=== PATIENT | male | born 1990 | race Caucasian/White ===

== ENCOUNTER 2019-04-24 09:29 | Emergency (ER) | payer MEDICAID, SELFPAY ==
[2019-04-24] VITALS (11 sets, daily range): BP systolic 132–138; BP diastolic 60–87; PULSE 100–108; RESP 14–21; O2SAT 93–98; BMI 25.8
--- NOTE | 2019-04-24 09:32 | ED_ITS ---
Entered by Patrica Aguero, acting as scribe for HPI - Nausea/Vomiting/Diarrhea General: Chief complaint: GI Bleed Stated complaint: COFFEE GROUND EMESIS Time Seen by Provider: 04/24/19 09:31 History of Present Illness: HPI Narrative: 28 yo male presents with coffee ground emesis. Pt has a history of a TBI, he is Non verbal. Pt has a Peg tube. 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 He is nonverbal. No evidence of hematochezia or melena. MD elicited complaint: vomiting Onset (ago): unknown Description of vomiting: coffee grounds Associated nausea: Yes Associated symtoms: Reports nausea Review of Systems General: Reports: ROS unobtainable due to mental status (Pt is non verbal from TBI) GI: Reports: nausea, vomiting and coffee grounds in vomit PFSH ED PFSH: Statuses (acute, chronic, etc) shown below reflect problem list status as previously entered and may not be historically accurate Medical History TBI (traumatic brain injury) (Acute) Surgical History S/P percutaneous endoscopic gastrostomy (PEG) tube placement (Acute) Social History Smoking and tobacco status: never smoked Physical Exam Narrative: EXAM NARRATIVE: Pt is Non verbal Neck/C-Spine: COMMON NORMALS: no JVD Lymph: LYMPHATIC: no lymphadenopathy noted and no lymphedema noted Resp: COMMON NORMALS: normal respiratory effort, no retractions, no use of accessory muscles and clear to auscultation bilaterally AUSCULTATION: clear to auscultation bilaterally Cardio: COMMON NORMALS: no JVD, regular rate, regular rhythm and no murmurs RATE: regular rate RHYTHM: regular rhythm GI: COMMON NORMALS: soft to palpation and no hepatosplenomegaly AUSCULTATION: Yes normoactive bowel sounds PALPATION: Yes soft, No tender, No guarding and Yes no hepatosplenomegaly OTHER: PEG tube rectal exam Hemoccult negative Extremity: COMMON NORMALS: normal to inspection, normal capillary refill, no clubbing, cyanosis or edema, no calf tenderness and no pedal edema Skin: COMMON NORMALS: no rashes or lesions noted GENERAL SKIN EXAM: no rashes or lesions noted Course Vital Signs: Vital signs: Vital Signs Pulse Rate 100 04/24/19 13:19 Respiratory Rate 20 H 04/24/19 13:19 Blood Pressure 132/87 04/24/19 13:19 Pulse Oximetry 95 04/24/19 13:19 MDM - Nausea/Vomiting/Diarrhea Lab Data: Labs: Lab Results 04/24/19 04/24/19 04/24/19 Range/Units 10:00 10:00 10:00 WBC 18.3 H (4.0-10.0) 10^3/ uL RBC 4.90 (4.1-5.3) 10^6/u L Hgb 15.9 (11.7-16.6) g/dL Hct 47.7 (42.0-52.0) % MCV 97.3 H (80-94) fL MCH 32.4 (28.0-34.0) pg MCHC 33.3 (30.0-36.0) g/dL RDW 12.1 (12.1-15.1) % Plt Count 471 H (130-400) 10^3/c mm MPV 11.5 H (7.4-10.4) fL Neut % (Auto) 76.9 % Lymph % (Auto) 11.9 % [place] % (Auto) 10.4 % Eos % (Auto) 0.1 % Baso % (Auto) 0.4 % Neut # (Auto) 14.1 H (1.8-7.7) 10^3/u L Lymph # (Auto) 2.2 (0.8-4.8) 10^3/u L [place] # (Auto) 1.9 H (0.2-0.9) 10^3/u L Eos # (Auto) 0.0 (0.0-0.8) 10^3/u L Baso # (Auto) 0.1 (0.0-0.1) 10^3/u L Nucleated RBC % (a uto) 0 % Nucleated RBCs # 0.0 /100WBC PT 13.00 (10.5-13.3) SECO NDS INR 0.95 (0.8-1.2) APTT 32.2 (23.9-36.7) SECO NDS Sodium 141 (136-145) mmol/L Potassium 4.1 (3.5-5.1) mmol/L Chloride 103 (98-107) mmol/L Carbon Dioxide 26 (22-29) mmol/L Anion Gap 16.1 (5-19) BUN 17 (6-20) mg/dL Creatinine 0.5 L (0.7-1.2) mg/dL GFR Calculation 198.0 H (90-130) mL/min Glucose 110 H (74-109) mg/dL Calcium 9.7 (8.5-10.5) mg/dL Total Bilirubin 0.5 (0.15-1.2) mg/dL AST 23 (0-40) U/L ALT 33 (0-41) U/L Alkaline Phosphata se 106 (40-130) IU/L Total Protein 8.1 (6.6-8.7) g/dL Albumin 4.7 (3.5-5.2) g/dL Globulin 3.4 (1.3-4.6) g/dL Urine Color (Yellow) Urine Appearance (CLEAR) Urine pH (5-7) Ur Specific Gravit y (1.005-1.030) Urine Protein (Negative) Urine Glucose (UA) (Normal) Urine Ketones (Negative) Urine Occult Blood (Negative) Urine Nitrate (Negative) Urine Bilirubin (NEGATIVE) Urine Urobilinogen (Negative) mg/dL Ur Leukocyte Roseanna ase (Negative) Urine RBC (0-2) /hpf Urine WBC (0-5) /hpf Ur Squamous Epith Cells (0-5) Amorphous Sediment Urine Bacteria (NONE) Hyaline Casts Urine Mucus Influenza Type A A g (Negative) POC Influenza B Ag (Negative) 04/24/19 04/24/19 Range/Units 11:40 11:50 WBC (4.0-10.0) 10^3/ uL RBC (4.1-5.3) 10^6/u L Hgb (11.7-16.6) g/dL Hct (42.0-52.0) % MCV (80-94) fL MCH (28.0-34.0) pg MCHC (30.0-36.0) g/dL RDW (12.1-15.1) % Plt Count (130-400) 10^3/c mm MPV (7.4-10.4) fL Neut % (Auto) % Lymph % (Auto) % [place] % (Auto) % Eos % (Auto) % Baso % (Auto) % Neut # (Auto) (1.8-7.7) 10^3/u L Lymph # (Auto) (0.8-4.8) 10^3/u L [place] # (Auto) (0.2-0.9) 10^3/u L Eos # (Auto) (0.0-0.8) 10^3/u L Baso # (Auto) (0.0-0.1) 10^3/u L Nucleated RBC % (a uto) % Nucleated RBCs # /100WBC PT (10.5-13.3) SECO NDS INR (0.8-1.2) APTT (23.9-36.7) SECO NDS Sodium (136-145) mmol/L Potassium (3.5-5.1) mmol/L Chloride (98-107) mmol/L Carbon Dioxide (22-29) mmol/L Anion Gap (5-19) BUN (6-20) mg/dL Creatinine (0.7-1.2) mg/dL GFR Calculation (90-130) mL/min Glucose (74-109) mg/dL Calcium (8.5-10.5) mg/dL Total Bilirubin (0.15-1.2) mg/dL AST (0-40) U/L ALT (0-41) U/L Alkaline Phosphata se (40-130) IU/L Total Protein (6.6-8.7) g/dL Albumin (3.5-5.2) g/dL Globulin (1.3-4.6) g/dL Urine Color Yellow (Yellow) Urine Appearance Sl hazy (CLEAR) Urine pH 8 H (5-7) Ur Specific Gravit y 1.010 (1.005-1.030) Urine Protein Neg (Negative) Urine Glucose (UA) Norm (Normal) Urine Ketones 1+ H (Negative) Urine Occult Blood Neg (Negative) Urine Nitrate Negative (Negative) Urine Bilirubin Neg (NEGATIVE) Urine Urobilinogen Norm (Negative) mg/dL Ur Leukocyte Roseanna ase Negative (Negative) Urine RBC 0-4 H (0-2) /hpf Urine WBC 10-15 H (0-5) /hpf Ur Squamous Epith Cells 5-10 H (0-5) Amorphous Sediment 1+ Urine Bacteria 1+ H (NONE) Hyaline Casts Rare Urine Mucus 1+ Influenza Type A A g Negative (Negative) POC Influenza B Ag Negative (Negative) Discharge Plan Discharge Patient Disposition: Home, Self-Care Clinical Impression: Acute vomiting Condition: Stable Prescriptions: New promethazine 12.5 mg tablet 12.5 mg PO Q6H PRN (Reason: nausea and vomiting) Qty: 20 RF: 0 No Action senna 8.6 mg Tablet 17.2 mg feeding tube DAILY RF: 0 acetaminophen 650 mg Suppository 650 mg ME Q4H PRN (Reason: Pain) RF: 0 Miralax 17 gram Powder In Packet 17 g feeding tube DAILY RF: 0 metoclopramide HCl 5 mg/5 mL Solution 10 mg feeding tube Q8H RF: 0 acetaminophen 500 mg Tablet 1,000 mg PO DAILY RF: 0 Milk of Magnesia 400 mg/5 mL Suspension 30 ml PO DAILY PRN (Reason: Constipation) RF: 0 baclofen 10 mg Tablet 20 mg PO TID RF: 0 bisacodyl 10 mg Suppository 10 mg ME DAILY PRN (Reason: Constipation) RF: 0 bisacodyl 10 mg Suppository See Rx Instructions .ROUTE .COMPLEX RF: 0 Enema Disposable 19-7 gram/118 mL Enema 118 ml ME DAILY PRN (Reason: Constipation) RF: 0 aspirin 81 mg Tablet,Chewable 81 mg PO DAILY RF: 0 loratadine 10 mg Tablet 10 mg feeding tube DAILY RF: 0 Nexium 20 mg Capsule,Delayed Release(Dr/Ec) 40 mg feeding tube DAILY RF: 0 hydrocodone-acetaminophen 7.5-325 mg/15 mL Solution 15 ml feeding tube Q6H PRN (Reason: Pain) RF: 0 lactulose 10 gram/15 mL Solution 30 ml feeding tube TID RF: 0 Jevity 1.5 Jerry 0.06 gram-1.5 kcal/mL Liquid 80 ea feeding tube DAILY RF: 0 Discharge Orders: Discharge Order (Routine); Ordered 04/24/19 Ordered By: Pancho Vega Referrals: Abram Tellez Jr, MD [Primary Care Provider] - Discharge Diet: Usual diet Discharge Activity: Resume usual activity Interventions: ED Discharge Assessment Last Done: 04/24/19 13:19 Discharge Date/Time: 04/24/19 14:13 Coding Level of Care Code 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
[2019-04-24 10:13] LABS: Basophils # 0.1 10^3/uL (0.0-0.1); Basophils % 0.4 %; Eosinophils % 0.1 %; Hematocrit 47.7 % (42.0-52.0); Hemoglobin 15.9 g/dL (11.7-16.6); Lymphocytes # 2.2 10^3/uL (0.8-4.8); Lymphocytes % 11.9 %; Mean Corpuscular HGB Conc 33.3 g/dL (30.0-36.0); Mean Corpuscular Hemoglobin 32.4 pg (28.0-34.0); Mean Corpuscular Volume 97.3 fL (80-94); Mean Platelet Volume 11.5 fL (7.4-10.4); Monocytes # 1.9 10^3/uL (0.2-0.9); Monocytes % 10.4 %; Neutrophils # 14.1 10^3/uL (1.8-7.7); Neutrophils % 76.9 %; Nucleated Red Blood Cells % 0 %; Platelet Count 471 10^3/cmm (130-400); Red Cell Distribution Width 12.1 % (12.1-15.1); White Blood Count 18.3 10^3/uL (4.0-10.0)
[2019-04-24 10:23] LABS: INR 0.95 (0.8-1.2)
[2019-04-24 10:24] LABS: Partial Thromboplastin Time 32.2 SECONDS (23.9-36.7)
[2019-04-24 10:29] LABS: Alanine Aminotransferase 33 U/L (0-41); Albumin Level 4.7 g/dL (3.5-5.2); Alkaline Phosphatase 106 IU/L (40-130); Anion Gap 16.1 (5-19); Aspartate Amino Transferase 23 U/L (0-40); Blood Urea Nitrogen 17 mg/dL (6-20); Calcium 9.7 mg/dL (8.5-10.5); Carbon Dioxide 26 mmol/L (22-29); Chloride 103 mmol/L (98-107); Globulin 3.4 g/dL (1.3-4.6); Glucose 110 mg/dL (74-109); Potassium 4.1 mmol/L (3.5-5.1); Sodium 141 mmol/L (136-145); Total Bilirubin 0.5 mg/dL (0.15-1.2); Total Protein 8.1 g/dL (6.6-8.7)
[2019-04-24 10:46] LABS: Slide Review Slide Review Perform
--- NOTE | 2019-04-24 11:04 | XRR_ITS ---
PROCEDURE INFORMATION: Exam: XR Chest, 1 View Exam date and time: 04/24/2019 11:08 AM Age: 28 years old Clinical indication: Cough; Patient HX: PT had coffee ground emesis at 0830. Limited HX due to PT condition, HX of tbi TECHNIQUE: Imaging protocol: XR of the chest Views: 1 view. COMPARISON: CR Chest 1 [place] [id number] 09/12/2017 3:12 AM FINDINGS: Lungs: Mild interstitial prominence, without acute airspace disease. Pleural space: No significant pleural effusion. Heart/Mediastinum: No cardiomegaly. Bones/joints: Unremarkable. Other findings: Colonic dilatation in the visualized upper abdomen. XR/XR chest 1V portable [id number] IMPRESSION: No acute airspace or pleural disease.
[2019-04-24 12:21] LABS: Influenza A by IFA Negative (Negative); Influenza B by IFA Negative (Negative)
[2019-04-24 12:30] LABS: Bilirubin Urine Neg (NEGATIVE); Blood Urine Neg (Negative); Glucose Urine UA Norm (Normal); Ketones Urine 1+ (Negative); Leukocyte Esterase Urine Negative (Negative); Nitrate Urine Negative (Negative); Protein Urine Neg (Negative); Urine Appearance SL Hazy (CLEAR); Urine Color Yellow (Yellow); Urobilinogen Urine Norm (Negative); pH Urine 8 (5-7)
[2019-04-24 12:31] LABS: Add Urine Microscopic? YES
[2019-04-24 12:33] LABS: Hyaline Casts Urine RARE; Mucus Urine 1+
[2019-04-24 12:34] LABS: Amorphous Sediment Urine 1+; Bacteria Urine 1+; RBC Urine 0-4 /hpf (0-2)
[2019-04-24 12:35] LABS: Add Urine Culture? No
--- NOTE | 2019-04-24 13:14 | PC.NURSE ---
quinton scruggs scheduled at this time. Ref number [id number].
--- NOTE | 2019-04-24 13:19 | PC.NURSE ---
Report called to [facility] at this time, spoke to Aaliyah greenhouse worker and KATHERYN beck.
== END 2019-04-24 14:13 | disposition home or self-care (01) ==
PROVIDERS: Emergency Provider Family Medicine; Family Provider Family Medicine; PCP Family Medicine
DX: R11.10 Vomiting, unspecified (principal); Z79.82 Long term (current) use of aspirin
CPT/HCPCS: 71045; 80053; 81001; 85025; 85610; 85730; 87804; 99283

== ENCOUNTER 2019-06-10 03:23 | Emergency (ER) | payer MEDICAID, SELFPAY | END 2019-06-10 11:13 | disposition admitted as inpatient to this hospital (09) | LOC: ER 06-25 12:46 | PROVIDERS: Emergency Provider Family Medicine; Family Provider Family Medicine; PCP Family Medicine | DX: Z01.89 Encounter for other specified special examinations (principal) ==

== ENCOUNTER 2019-06-10 03:23 | Observation (INO) | payer MEDICAID, SELFPAY ==
[2019-06-10] VITALS (9 sets, daily range): BP systolic 117–150; BP diastolic 71–111; PULSE 68–115; RESP 16–22; TEMP 36.8–38.2; O2SAT 90–96
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
--- NOTE | 2019-06-10 03:27 | XR_ITS ---
WS: [id number] Portable AP upright chest, 06/10/2019 Clinical Data: fever Comparison: Portable chest, 04/24/2019. Findings: No nodules, masses or effusions are seen. The heart is normal. The pulmonary vascularity is not increased. No pneumonia or pneumothorax is seen. Chest wall and rib deformity are unchanged the re is a large amount of air in the colon.. XR/XR chest 1V portable [id number] Impression: Negative chest.
[2019-06-10 04:08] LABS: Basophils # 0.1 10^3/uL (0.0-0.1); Basophils % 0.4 %; Hematocrit 47.3 % (42.0-52.0); Hemoglobin 15.4 g/dL (11.7-16.6); Lymphocytes # 2.2 10^3/uL (0.8-4.8); Mean Corpuscular HGB Conc 32.6 g/dL (30.0-36.0); Mean Corpuscular Hemoglobin 32.4 pg (28.0-34.0); Mean Corpuscular Volume 99.4 fL (80-94); Mean Platelet Volume 11.5 fL (7.4-10.4); Monocytes # 1.1 10^3/uL (0.2-0.9); Monocytes % 8.7 %; Neutrophils % 72.7 %; Nucleated Red Blood Cells % 0 %; Platelet Count 445 10^3/cmm (130-400); Red Blood Count 4.76 10^6/uL (4.1-5.3); Red Cell Distribution Width 11.8 % (12.1-15.1); White Blood Count 12.4 10^3/uL (4.0-10.0)
[2019-06-10 04:27] LABS: Influenza A by IFA Negative (Negative); Influenza B by IFA Negative (Negative)
[2019-06-10 04:29] LABS: Lactic Acid level (Lactate) 1.3 mmol/L (0.5-2.2)
[2019-06-10 04:30] LABS: Alanine Aminotransferase 37 U/L (0-41); Albumin Level 4.3 g/dL (3.5-5.2); Alkaline Phosphatase 116 IU/L (40-130); Anion Gap 15.8 (5-19); Aspartate Amino Transferase 18 U/L (0-40); Blood Urea Nitrogen 10 mg/dL (6-20); Carbon Dioxide 29 mmol/L (22-29); Chloride 99 mmol/L (98-107); Globulin 4.3 g/dL (1.3-4.6); Glomerular Filtration Rate 256.1 mL/min (90-130); Glucose 124 mg/dL (65-115); Osmolality Calculated 287 mOsm/kg (285-295); Potassium 3.8 mmol/L (3.5-5.1); Sodium 140 mmol/L (136-145); Total Bilirubin 0.6 mg/dL (0.15-1.2); Total Protein 8.6 g/dL (6.6-8.7)
[2019-06-10] MEDS: acetaminophen 325 mg Tablet 650 MG PO (05:00)
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
--- NOTE | 2019-06-10 05:37 | PC.NURSE ---
pt vomitus dark brown contents. Gastric occult test at bedside-positive. ED provider notified. ED provider in room to examine pt and perform rectal examination
[2019-06-10] MEDS: ondansetron 2 mg/ML SDV 2 mL 4 MG IVP (05:39)
[2019-06-10] MEDS: pantoprazole 40 mg SDV 80 MG IVP (05:54)
[2019-06-10] MEDS: pantoprazole 40 MG in sodium chloride 0.9% (plus) 100 ML 20 MG IV (05:55)
[2019-06-10 06:05] LABS: Bilirubin Urine Neg (NEGATIVE); Blood Urine Neg (Negative); Glucose Urine UA Norm (Normal); Ketones Urine Negative (Negative); Nitrate Urine Negative (Negative); Protein Urine Neg (Negative); Specific Gravity, Urine 1.015 (1.005-1.030); Sulfosalicylic Acid Urine Negative; Urine Appearance Cloudy (CLEAR); Urine Color Dark Yellow (Yellow); pH Urine 9 (5-7)
--- NOTE | 2019-06-10 06:05 | PC.NURSE ---
pt transported to CT by stretcher with radames and RN
[2019-06-10 06:13] LABS: Add Urine Microscopic? YES; Leukocyte Esterase Urine Negative (Negative); Urobilinogen Urine Norm (Negative)
[2019-06-10] MEDS: iohexol 300 mg/mL 100 mL Btl IV (06:14)
[2019-06-10 06:15] LABS: Bacteria Urine 1+; RBC Urine 0-4 /hpf (0-2); Squamous Epithelial Cell Urine 0-4 (0-5)
[2019-06-10 06:16] LABS: Add Urine Culture? No; Amorphous Sediment Urine 2+
--- NOTE | 2019-06-10 06:27 | PC.NURSE ---
pt return from CT by stretcher with tech. Pt continuing to have copious amounts of vomitus. ED provider notified. Orders received.
[2019-06-10] MEDS: haloperidol inj 5 mg/mL INJ 1 mL IM (06:39)
--- NOTE | 2019-06-10 07:58 | XR_ITS ---
WS: [id number] KUB, portable, 06/10/2019 Clinical Data: G tube placement Comparison: Abdomen series, 07/28/2018. Findings: There is a inflated balloon which may represent the end of a gastric tube. The inflated balloon is on ly partly imaged at the superior aspect of the film. There is contrast material in the kidneys, urete rs and the bladder from a recent CT scan of the abdomen. There is an inferior vena caval filter. There is air in the small bowel and colon but no evidence of obstruction. There is fecal material in the rectum. Irregularity of the lateral aspects of both ale may be from surgery. XR/XR KUB portable [id number] Impression: 1. Inflated balloon with contrast only partly imaged at superior aspect of the KUB. 2. Generalized ileus.
[2019-06-10] MEDS: piperacillin-tazobactam 3.375 GM in sodium chloride 0.9% (plus) 50 ML IV (09:24)
[2019-06-10] MEDS: D5-NS 0.45% + KCL 20 mEq 20 MEQ/1,000 ML BAG 100 MEQ IV ×2 (11:40→21:05)
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
--- NOTE | 2019-06-10 12:13 | PM.CONSULT ---
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 CT scan of the abdomen and pelvis showed: 1. G-tube is noted with balloon inflated in the duodenum and small bowel obstruction/gastric obstruction related to this. No perforation identified. 2. Moderate patchy airspace opacities (atelectasis and/or consolidation) at bilateral lung bases. General surgery was contacted for consultation for potential endoscopy and feeding tube replacement Review of Systems General: Reports: ROS unobtainable due to medical condition Meds/Allergies Home Medications and Allergies Home Medications Medication Instructions Recorded Confirmed Type acetaminophen 1,000 mg PO DAILY 04/24/19 06/10/19 History acetaminophen 650 mg NC Q4H PRN 04/24/19 06/10/19 History aspirin 81 mg PO DAILY 04/24/19 06/10/19 History baclofen 20 mg FEEDING TUBE TID 04/24/19 06/10/19 History bisacodyl 10 mg NC DAILY PRN 04/24/19 06/10/19 History bisacodyl See Rx Instructions .ROUTE .COMPLEX 04/24/19 06/10/19 History esomeprazole magnesium [Nexium] 40 mg FEEDING TUBE BID 04/24/19 06/10/19 History hydrocodone-acetaminophen 15 ml FEEDING TUBE Q6H PRN 04/24/19 06/10/19 History lactose-reduced food with fibr See Rx Instructions .ROUTE .COMPLEX 04/24/19 06/10/19 History [Jevity 1.5 Jerry] lactulose 30 ml FEEDING TUBE TID 04/24/19 06/10/19 History loratadine See Rx Instructions .ROUTE .COMPLEX 04/24/19 06/10/19 History magnesium hydroxide [Milk of See Rx Instructions .ROUTE 04/24/19 06/10/19 History Magnesia] .COMPLEX PRN metoclopramide HCl 10 mg FEEDING TUBE Q8H 04/24/19 06/10/19 History polyethylene glycol 3350 [Miralax] 17 g FEEDING TUBE DAILY 04/24/19 06/10/19 History sennosides [senna] 17.2 mg FEEDING TUBE DAILY 04/24/19 06/10/19 History sodium phosphates [Enema 118 ml NC DAILY PRN 04/24/19 06/10/19 History Disposable] oseltamivir [Tamiflu] 75 mg FEEDING TUBE DAILY 06/10/19 06/10/19 History Allergies Allergy/AdvReac Type Severity Reaction Status Date / Time No Known Allergies Allergy Verified 06/10/19 12:16 Current Medications Current Medications Generic Name Dose Route Start Last Admin Trade Name Freq PRN Reason Stop Dose Admin Potassium Chloride/Dextrose/Sod Cl 20 meq in 1,000 mls @ 100 mls/hr 06/10/19 11:18 06/10/19 11:40 D5-Ns 0.45% + Kcl 20 Meq IV 100 mls/hr .Q10H DUYEN Administration PFSH Acute PFSH: Medical History Chronic constipation TBI (traumatic brain injury) Surgical History Hx of tracheostomy S/P percutaneous endoscopic gastrostomy (PEG) tube placement Social History Smoking and tobacco status: never smoked Housing: Intermediate Current occupational status: disabled Vitals/I&O/Wt Last Vital Signs Temp 98.7 F 06/10/19 11:29 Pulse 108 H 06/10/19 11:29 Resp 22 H 06/10/19 11:29 BP 136/74 06/10/19 11:29 Pulse Ox 91 06/10/19 11:29 Physical Exam Narrative: EXAM NARRATIVE: Patient is nonverbal in a vegetative state Head and neck examination PERRLA no masses no cervical lymphadenopathy no jaundice Cardiac examination audible S1-S2 no murmurs no gallops no arrhythmias Chest is clear bilateral,abscence of Rhonchi or wheezes,no surgical emphysema Abdomen nontender nondistended soft no organomegaly guarding or rigidity/no signs of peritonitis Midline scar, left upper quadrant feeding tube in place in the form of 22 [place] Ackerman catheter Extremities no cyanosis no clubbing no edema Data Micro: Micro: Microbiology 06/10/19 09:20 Blood Culture - Pr eliminary Blood SPECIMEN [facility] 06/10/19 09:17 Blood Culture - Pr eliminary Blood SPECIMEN [facility] 06/10/19 04:00 Blood Culture - Pr eliminary Blood SPECIMEN [facility] 06/10/19 04:00 Blood Culture - Pr eliminary Blood SPECIMEN [facility] A&P Assessment and plan (1) Gastric outlet obstruction: Plan of care; After thorough history and physical examination and reviewing the chart and images with my personal interpretation, plan to perform a diagnostic esophagogastroduodenoscopy and possible biopsy in the OR with replacement of feeding tube Informed consent per chart were,Indications, risks, benefits, and alternatives were all discussed with the patient and did agree to proceed. 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 Coding Level of Care Code Acute Admissions Evaluator for [facility] Fwd Diagnoses Gastric outlet obstruction K31.1
--- NOTE | 2019-06-10 15:02 | PC.NURSE ---
Call placed to Japser Carter, sharma of court, for consent. Jasper consented and verified with KATHERYN Bah. Signed consent placed in chart.
[2019-06-10 15:10] LABS: Hematocrit 46.8 % (42.0-52.0); Hemoglobin 14.9 g/dL (11.7-16.6)
[2019-06-10] MEDS: pantoprazole 40 mg SDV IVP (17:57)
[2019-06-11] VITALS (16 sets, daily range): BP systolic 88–128; BP diastolic 46–83; PULSE 57–95; RESP 14–22; TEMP 36.4–36.9; O2SAT 93–98
[2019-06-11] MEDS: pantoprazole 40 mg SDV IVP
[2019-06-11] MEDS: D5-NS 0.45% + KCL 20 mEq 20 MEQ/1,000 ML BAG 100 MEQ IV (06:28)
[2019-06-11 06:35] LABS: Basophils # 0.1 10^3/uL (0.0-0.1); Basophils % 0.8 %; Eosinophils # 0.2 10^3/uL (0.0-0.8); Eosinophils % 1.4 %; Hematocrit 42.9 % (42.0-52.0); Lymphocytes # 4.4 10^3/uL (0.8-4.8); Lymphocytes % 41.8 %; Mean Corpuscular HGB Conc 32.6 g/dL (30.0-36.0); Mean Corpuscular Hemoglobin 32.4 pg (28.0-34.0); Mean Corpuscular Volume 99.3 fL (80-94); Mean Platelet Volume 11.6 fL (7.4-10.4); Monocytes # 1.4 10^3/uL (0.2-0.9); Monocytes % 12.9 %; Neutrophils # 4.6 10^3/uL (1.8-7.7); Nucleated Red Blood Cells % 0 %; Platelet Count 399 10^3/cmm (130-400); Red Blood Count 4.32 10^6/uL (4.1-5.3); Red Cell Distribution Width 11.7 % (12.1-15.1); White Blood Count 10.6 10^3/uL (4.0-10.0)
--- NOTE | 2019-06-11 10:30 | PC.NURSE ---
lidocaine patient has patent IV, nonadmin lidocaine ordered for IV insertion
--- NOTE | 2019-06-11 11:03 | PC.NURSE ---
off unit patient taken to OR via hospital bed
[2019-06-11] MEDS: sodium chloride 0.9% 1,000 ML 30 ML IV ×2 (11:25→13:44)
--- NOTE | 2019-06-11 11:31 | P.PN_ITS ---
Subjective Subjective: Interval history: Patient overall about the same Vitals/I&O/Wt Last Vital Signs Temp 97.7 F 06/11/19 11:13 Pulse 67 06/11/19 11:13 Resp 18 06/11/19 11:13 BP 116/72 06/11/19 11:13 Pulse Ox 94 06/11/19 11:13 06/10/19 06/11/19 06/11/19 22:59 06:59 14:59 Intake Total 941.667 / 941.667 938.333 / 1880.000 Output Total 200 / 200 Balance 741.667 / 741.667 938.333 / 1680.000 Weight last 48 hrs Weight 157 lb 6.4 oz Physical Exam Narrative: EXAM NARRATIVE: Patient is conscious alert oriented X3 BMI 23 Abdomen nontender nondistended soft no organomegaly guarding or rigidity/no signs of peritonitis Feeding tube in place Data : 06/11/19 06:15 06/10/19 04:00 Micro: Microbiology 06/10/19 09:20 Blood Culture - Preliminary Blood NEGATIVE TO DATE 06/10/19 09:17 Blood Culture - Preliminary Blood NEGATIVE TO DATE 06/10/19 05:24 Urine Culture - Preliminary Urine Catheterized Strep species, gamma-hemolytic 06/10/19 04:00 Blood Culture - Preliminary Blood NEGATIVE TO DATE 06/10/19 04:00 Blood Culture - Preliminary Blood NEGATIVE TO DATE A&P Assessment and plan (1) Gastric outlet obstruction: Plan of care; After thorough history and physical examination and reviewing the chart and images with my personal interpretation, plan to perform a diagnostic esophagogastroduodenoscopy and possible biopsy in the OR with replacement of feeding tube Informed consent per chart were,Indications, risks, benefits, and alternatives were all discussed with the patient and did agree to proceed. Status: Acute Code(s): K31.1 - Adult hypertrophic pyloric stenosis Attestations Medical Necessity Statement*: Per hospitalist service Time Spent in Patient Care: 16 - 35 minutes (>than 50% of time spent in counselling and/or direct pt care on unit) . Coding Level of Care Code Acute Transport Analyst for [facility] Diagnoses Gastric outlet obstruction K31.1
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
[2019-06-11] MEDS: baclofen 10 mg Tablet 20 MG PEG-TUBE (14:16)
[2019-06-11] MEDS: lactulose oral liq 20 gm/30 mL UDC PEG-TUBE (14:16)
--- NOTE | 2019-06-11 14:32 | PM.DCS ---
Discharge Providers Date of Admission: 06/10/19 09:04 Date of Discharge: June 11, 2019 Attending Provider at Admission: Fran Pinedo MD Attending Provider at Discharge: Naomi Cordon DO Primary Care Provider: Abram Tellez Jr, MD Diagnoses at Discharge Discharge Diagnosis (1) Gastric outlet obstruction: Status: Acute Reason for Visit Reason for Visit: Reason For Visit: GASTRIC ULCER Hospital Course Hospital Course: Patient was seen and evaluated in the emergency department and admitted for further evaluation due to concern for gastric outlet obstruction from feeding tube. Patient had a balloon of the Ackerman catheter blocking gastric outlet and creating obstruction this was pulled back by the ED attending and patient had improvement of his nausea and vomiting. There is noted to be some concern for coffee-ground material therefore general surgeon was consulted for EGD and feeding tube replacement. EGD was performed which showed no gastric ulcers and patient had Josue button placed. Physical Exam Const: COMMON NORMALS: oriented x3 and alert ORIENTATION/CONSCIOUSNESS: Yes oriented to person, Yes oriented to place and Yes oriented to time OTHER: Awake, nonverbal Difficult physical exam due to chronic contractures and history of TBI Eye: COMMON NORMALS: PERRL PUPIL: Yes PERRL Neck/C-Spine: COMMON NORMALS: supple GENERAL: Yes normal visual inspection Resp: COMMON NORMALS: normal respiratory effort, no retractions and clear to auscultation bilaterally EFFORT & INSPECTION: Yes able to speak in complete sentences AUSCULTATION: clear to auscultation bilaterally, no rhonchi and no wheezes Cardio: RATE: tachycardic GI: COMMON NORMALS: soft to palpation and non-tender INSPECTION: No abdominal distension AUSCULTATION: Yes normoactive bowel sounds PALPATION: Yes soft OTHER: Soft, Ackerman and G-tube in place : COMMON NORMALS: Yes no CVA tenderness BLADDER/KIDNEY EXAM: Yes no CVA tenderness Back/Pelvis: COMMON NORMALS: no CVA tenderness Extremity: COMMON NORMALS: no clubbing, cyanosis or edema and no calf tenderness NARRATIVE EXTREMITY EXAM: Chronic contractures in the upper extremities bilaterally and in the lower extremities bilaterally Neuro: COMMON NORMALS: oriented x3, CN's II-XII intact bilaterally, moves all extremities and no focal motor deficits SENSORIUM/ORIENTATION: Yes alert, Yes oriented to person, Yes oriented to place and Yes oriented to time SPEECH: speech normal OTHER: Patient has 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 with legs crossed in the lower extremities, nonverbal, history of traumatic brain injury Patient with head to the Right Psych: COMMON NORMALS: mental status grossly normal and cooperative OTHER: Nonverbal Skin: COMMON NORMALS: no rashes or lesions noted GENERAL SKIN EXAM: no rashes or lesions noted Discharge Data Data Completed and Pending: Completed Studies During Hospitalization Category Date Time Status CT abdomen pelvis w con* [id number] Urge nt Cat Scan 06/10/19 05:15 Completed XR KUB portable 7 [id number] Stat Exams 06/10/19 07:58 Completed XR chest 1V terrence ble [id number] Urgent Exams 06/10/19 03:27 Completed Pending at discharge Category Date Time Status Blood Culture Sta t Lab 06/10/19 04:00 Results Blood Culture Sta t Lab 06/10/19 09:20 Results Urine Culture Sta t Lab 06/10/19 05:24 Results Labs from last 24 hours 06/11/19 06/10/19 06:15 14:55 WBC 10.6 H RBC 4.32 Hgb 14.0 14.9 Hct 42.9 46.8 MCV 99.3 H MCH 32.4 MCHC 32.6 RDW 11.7 L Plt Count 399 MPV 11.6 H Neut % (Auto) 43.0 Lymph % (Auto) 41.8 [place] % (Auto) 12.9 Eos % (Auto) 1.4 Baso % (Auto) 0.8 Neut # (Auto) 4.6 Lymph # (Auto) 4.4 [place] # (Auto) 1.4 H Eos # (Auto) 0.2 Baso # (Auto) 0.1 Nucleated RBC % (a uto) 0 Nucleated RBCs # 0.0 Vitals: Last Vital Signs Temp 98.0 F 06/11/19 14:00 Pulse 63 06/11/19 14:03 Resp 18 06/11/19 14:00 BP 91/52 06/11/19 14:00 Pulse Ox 96 06/11/19 14:03 Discharge Plan Discharge Patient Disposition: Xfer SNF Condition: Stable Prescriptions: New pantoprazole [Protonix] 40 mg tablet,delayed release (DR/EC) 40 mg PO DAILY 30 Days Qty: 30 RF: 0 Continued sennosides [senna] 8.6 mg Tablet 17.2 mg feeding tube DAILY RF: 0 acetaminophen 650 mg Suppository 650 mg CO Q4H PRN (Reason: Pain) RF: 0 polyethylene glycol 3350 [Miralax] 17 gram Powder In Packet 17 g feeding tube DAILY RF: 0 metoclopramide HCl 5 mg/5 mL Solution 10 mg feeding tube Q8H RF: 0 acetaminophen 500 mg Tablet 1,000 mg PO DAILY RF: 0 magnesium hydroxide [Milk of Magnesia] 400 mg/5 mL Suspension See Rx Instructions .ROUTE .COMPLEX PRN (Reason: Constipation) RF: 0 baclofen 10 mg Tablet 20 mg feeding tube TID RF: 0 bisacodyl 10 mg Suppository 10 mg CO DAILY PRN (Reason: Constipation) RF: 0 bisacodyl 10 mg Suppository See Rx Instructions .ROUTE .COMPLEX RF: 0 Enema Disposable 19-7 gram/118 mL Enema 118 ml CO DAILY PRN (Reason: Constipation) RF: 0 aspirin 81 mg Tablet,Chewable 81 mg PO DAILY RF: 0 loratadine 10 mg Tablet See Rx Instructions .ROUTE .COMPLEX RF: 0 esomeprazole magnesium [Nexium] 20 mg Capsule,Delayed Release(Dr/Ec) 40 mg feeding tube BID RF: 0 hydrocodone-acetaminophen 7.5-325 mg/15 mL Solution 15 ml feeding tube Q6H PRN (Reason: Pain) RF: 0 lactulose 10 gram/15 mL Solution 30 ml feeding tube TID RF: 0 Jevity 1.5 Jerry 0.06 gram-1.5 kcal/mL Liquid See Rx Instructions .ROUTE .COMPLEX RF: 0 Tamiflu 6 mg/mL Suspension For Reconstitution 75 mg feeding tube DAILY RF: 0 Discharge Orders: Discharge Order (Routine); Ordered 06/11/19 Ordered By: Naomi Cordon Referrals: Abram Tellez Jr, MD [Primary Care Provider] - 1-3 days Discharge Diet: Resume prior tube feeds Discharge Activity: Resume usual activity Activity Restrictions/Additional Instructions: Started on Protonix 40 mg daily per tube Discharge to [facility] Follow-up with primary care provider in 2 to 3 days at the [facility] Discharge Attestations Time Spent in Discharge Care*: greater than 30 min Quality Metrics Clinical Quality Measures During this hospital stay, did patient experience: None Coding Level of Care Code Acute Director Voice for g Fwd Diagnoses Gastric outlet obstruction K31.1
== END 2019-06-11 17:20 | disposition skilled nursing facility (03) ==
LOC: ER 08:45 → MEDSURG 10:39
PROVIDERS: Emergency Medicine; Admitting Provider Surgery; Emergency Provider Family Medicine; Family Provider Family Medicine; PCP Family Medicine; Visit Provider Family Medicine
PROC: 0DJ08ZZ Inspection of Upper Intestinal Tract, Via Natural or Artificial Opening Endoscopic (ICD-10-PCS; CPT 43235; principal; 2019-06-11 11:30)
DX: K31.1 Adult hypertrophic pyloric stenosis (principal); Z87.820 Personal history of traumatic brain injury; K21.9 Gastro-esophageal reflux disease without esophagitis; Z93.1 Gastrostomy status; Z79.82 Long term (current) use of aspirin
CPT/HCPCS: 43235; 12345; 36415; 71045; 74018; 74177; 80053; 81001; 83605; 85014; 85018; 85025; 87040; 87077; 87086; 87186; 87804; 96360; 96361; 96365; 96366; 96367; 96372; 96375; 99283; 99285; C9113; G0378; J1630; J2405; J2543; J2704; J7030; J7050; Q9967

== ENCOUNTER 2020-02-12 01:36 | Emergency (ER) | payer MEDICAID, SELFPAY ==
[2020-02-12] VITALS (7 sets, daily range): BP systolic 127–145; BP diastolic 76–108; PULSE 78–114; RESP 16–24; TEMP 36.7; O2SAT 96–100; BMI 23.5
--- NOTE | 2020-02-12 01:59 | CTR_ITS ---
PROCEDURE INFORMATION: Exam: CT Abdomen And Pelvis With Contrast Exam date and time: 02/12/2020 2:04 AM Age: 29 years old Clinical indication: Bloating and nausea and vomiting; Prior surgery; Surgery type: Trach, g-tube; Additional info: Abd distension TECHNIQUE: Imaging protocol: Computed tomography of the abdomen and pelvis with intravenous contrast. Radiation optimization: All CT scans at this facility use at least one of these dose optimization techniques: automated exposure control; mA and/or kV adjustment per patient size (includes targeted exams where dose is matched to clinical indication); or iterative reconstruction. Contrast material: OMNI 300; Contrast volume: 95 ml; Contrast route: INTRAVENOUS (IV); COMPARISON: CT abdomen pelvis w con* [id number] 06/10/2019 6:24 AM RADIATION DOSE METRICS: Total DLP (mGy-cm): 1359.77 FINDINGS: Tubes, catheters and devices: A percutaneous gastrostomy tube extends into the stomach. The tip of the tube/balloon appears to lie in the proximal duodenum, similar to the prior exam. There is mild gastric distention, slightly less prominent than on the prior exam. Lungs: Mild probable atelectasis in the lower lungs. No pleural fluid. Mediastinal space: Moderate fluid throughout the lower esophagus, possibly indicating gastroesophageal reflux. There appears to be moderate mucosal/wall thickening involving the lower esophagus. This is nonspecific, but could represent evidence for esophagitis. Please correlate clinically. The esophageal findings are similar to the prior exam. Liver: There is a very small 5 mm low attenuation area in the right lobe of the liver. The appearance is nonspecific, but statistically this most likely represents a small cyst or cavernous hemangioma. Gallbladder and bile ducts: No visible gallstones by CT. No biliary tree dilation. Pancreas: Unremarkable. Spleen: A normal appearing spleen is not visible. There is some presumed accessory splenic tissue in the left upper quadrant, similar to prior exam. Adrenal glands: Unremarkable. Kidneys and ureters: 7 mm likely benign cyst in the upper left kidney, similar to prior exam. Suspect a small right lower pole intrarenal calculus. No hydronephrosis of either kidney. No visible ureteral calculus. No perinephric fluid. Stomach and bowel: Prominent amount of stool in the rectum and distal sigmoid colon. The rectum is somewhat distended, transverse diameter to 6.5 cm. Please correlate clinically for possible fecal impaction. No definite perirectal inflammation or fluid at this time. There are no CT findings to strongly suggest diverticulitis. Appendix: The appendix is not identified with certainty, however no pericecal inflammatory changes are seen. Intraperitoneal space: No free air, ascites, or small bowel bowel distention. Vasculature: No evidence for abdominal aortic aneurysm. As before, an IVC filter is present. Lymph nodes: No retroperitoneal adenopathy. Urinary bladder: Suspect 1 or 2 very small calculi in the dependent aspect of the urinary bladder on the right. Reproductive: Essentially unremarkable for age. Bones/joints: Deformities of the iliac bones again seen bilaterally, probably related to healed fractures. Soft tissues: No significant acute finding. CT/CT abdomen pelvis w con* [id number] IMPRESSION: 1. Prominent amount of stool in the rectum and distal sigmoid colon, with rectal distention. Findings raise suspicion for possible fecal impaction. 2. No free air or small bowel distention. No evidence to strongly suggest bowel obstruction. 3. Suspect moderate mucosal/wall thickening involving the lower esophagus, possibly secondary to esophagitis. Evidence for suspected gastroesophageal reflux. 4. Percutaneous gastrostomy tube again extends into the proximal duodenum. Mild gastric distention, see above. 5. Small right intrarenal calculus. No hydronephrosis of either kidney. No visible ureteral calculus. 6. Suspect 1 or 2 very small urinary bladder calculi. 7. Other findings discussed above. Radiation Dose CTDIVOL = (mGy): DLP = 1359.77 (mGy-cm)
--- NOTE | 2020-02-12 02:01 | W.ED.NAVMDI ---
HPI - Nausea/Vomiting/Diarrhea General: Chief complaint: Nausea/Vomiting/Diarrhea Stated complaint: nausea and vomiting Time Seen by Provider: 02/12/20 01:44 History of Present Illness: HPI Narrative: 29-year-old [facility] with a history of traumatic brain injury. He is bedridden and essentially nonverbal. He has significant spastic paralysis. He presents with abdominal distention, vomiting, with a history of coffee-ground type emesis. He has a Josue button for G-tube feeds. No fever. No history of loose stool. MD elicited complaint: vomiting Pertinent past history: other Onset (ago): hour(s) Description of vomiting: coffee grounds Associated abdominal pain: Yes Location of pain: Other Associated symtoms: Reports fevers/chills Review of Systems General: Reports: ROS unobtainable due to medical condition PFS ED PFSH: Medical History (Updated 02/12/20 @ 03:51 by Taz Garland DO) Chronic constipation TBI (traumatic brain injury) Surgical History Hx of tracheostomy S/P percutaneous endoscopic gastrostomy (PEG) tube placement Social History Smoking and tobacco status: never smoked Housing: Shelter Current occupational status: disabled Physical Exam Const: COMMON NORMALS: alert EXAM LIMITATIONS: physical limitations and other limitations ORIENTATION/CONSCIOUSNESS: Yes awake Chest: COMMONS NORMALS: normal inspection of the chest Resp: COMMON NORMALS: normal respiratory effort and clear to auscultation bilaterally AUSCULTATION: clear to auscultation bilaterally GI: INSPECTION: Yes abdominal distension and No Abdominal panniculus present AUSCULTATION: Yes Hypoactive bowel sounds present PALPATION: Yes Firmness to palpation present (GI) and No Guarding due to palpation present (GI) PERCUSSION: tympanic to percussion Neuro: SENSORIUM/ORIENTATION: Yes alert SPEECH: Other neuro speech findings (nonverbal) GAIT: Yes Spastic hemiparesis gait present Course Vital Signs: Vital signs: Vital Signs Temperature 98.1 F 02/12/20 01:38 Pulse Rate 89 02/12/20 04:44 Respiratory Rate 17 02/12/20 04:44 Blood Pressure 127/76 02/12/20 04:44 Pulse Oximetry 96 02/12/20 04:44 MDM - Nausea/Vomiting/Diarrhea MDM Narrative: Medical decision making narrative: 29-year-old bedridden male with a history of TBI. [facility] No vomiting since here. He does have some gastric distention. There is no mechanical obstruction. There is reflux esophagitis likely present on CT. There is also what appears to be some fecal impaction. The patient is on Nexium daily. We will add some Carafate. We will also have them perform enemas 3 times daily well is put magnesium citrate in the tube until fecal impaction resolves. Lab Data: Labs: Lab Results 02/12/20 02/12/20 02/12/20 Range/Units 02:15 02:15 03:00 WBC Cancelled Corrected WBC Cancelled RBC Cancelled Hgb Cancelled Hct Cancelled MCV Cancelled MCH Cancelled MCHC Cancelled RDW Cancelled Plt Count Cancelled MPV Cancelled Gran % Cancelled Neut % (Auto) Cancelled Lymph % (Auto) Cancelled [place] % (Auto) Cancelled Eos % (Auto) Cancelled Baso % (Auto) Cancelled Neut # (Auto) Cancelled Lymph # (Auto) Cancelled [place] # (Auto) Cancelled Eos # (Auto) Cancelled Baso # (Auto) Cancelled Absolute Gran (aut o) Cancelled Nucleated RBC % (a uto) Cancelled Nucleated RBCs # Cancelled Sodium Cancelled Potassium Cancelled Chloride Cancelled Carbon Dioxide Cancelled Anion Gap Cancelled BUN Cancelled Creatinine Cancelled GFR Calculation Cancelled Glucose Cancelled Calculated Osmolal ity Cancelled Lactate 0.8 (0.5-2.2) mmol/L Calcium Cancelled Total Bilirubin Cancelled AST Cancelled ALT Cancelled Alkaline Phosphata se Cancelled C-Reactive Protein Cancelled Total Protein Cancelled Albumin Cancelled Globulin Cancelled Lipase Cancelled 02/12/20 02/12/20 Range/Units 03:00 03:00 WBC 11.2 H Corrected WBC RBC 4.88 Hgb 15.7 Hct 49.4 MCV 101.2 H MCH 32.2 MCHC 31.8 RDW 12.8 Plt Count 420 H MPV 11.4 H Gran % Neut % (Auto) 70.0 Lymph % (Auto) 18.8 [place] % (Auto) 9.3 Eos % (Auto) 0.7 Baso % (Auto) 1.0 Neut # (Auto) 7.85 H Lymph # (Auto) 2.1 [place] # (Auto) 1.0 H Eos # (Auto) 0.1 Baso # (Auto) 0.1 Absolute Gran (aut o) Nucleated RBC % (a uto) 0 Nucleated RBCs # 0.0 Sodium 143 Potassium 4.3 Chloride 104 Carbon Dioxide 29 Anion Gap 14.3 BUN 17 Creatinine 0.4 L GFR Calculation 254.3 H Glucose 104 Calculated Osmolal ity 298 H Lactate (0.5-2.2) mmol/L Calcium 8.9 Total Bilirubin 0.3 AST 22 ALT 24 Alkaline Phosphata se 124 C-Reactive Protein 1.7 Total Protein 7.2 Albumin 4.4 Globulin 2.8 Lipase 45 Discharge Plan Discharge Patient Disposition: [facility] Clinical Impression: Chronic constipation, Fecal impaction Esophagitis, reflux Qualifiers: Esophagitis bleeding: unspecified whether hemorrhage Qualified Code(s): K21.00 - Gastro-esophageal reflux disease with esophagitis, without bleeding Condition: Stable Prescriptions: New Carafate 100 mg/mL suspension 1 g PO Q6H 28 Days Qty: 1120 RF: 0 magnesium citrate Solution 300 ml PO DAILY PRN (Reason: constipation) Qty: 296 RF: 2 No Action sennosides [senna] 8.6 mg Tablet 17.2 mg feeding tube DAILY RF: 0 acetaminophen 650 mg Suppository 650 mg FL Q4H PRN (Reason: Pain) RF: 0 polyethylene glycol 3350 [Miralax] 17 gram Powder In Packet 17 g feeding tube DAILY RF: 0 metoclopramide HCl 5 mg/5 mL Solution 10 mg feeding tube Q8H RF: 0 acetaminophen 500 mg Tablet 1,000 mg PO DAILY RF: 0 magnesium hydroxide [Milk of Magnesia] 400 mg/5 mL Suspension See Rx Instructions .ROUTE .COMPLEX PRN (Reason: Constipation) RF: 0 baclofen 10 mg Tablet 20 mg feeding tube TID RF: 0 bisacodyl 10 mg Suppository 10 mg FL DAILY PRN (Reason: Constipation) RF: 0 bisacodyl 10 mg Suppository See Rx Instructions .ROUTE .COMPLEX RF: 0 Enema Disposable 19-7 gram/118 mL Enema 118 ml [place] DAILY PRN (Reason: Constipation) RF: 0 aspirin 81 mg Tablet,Chewable 81 mg PO DAILY RF: 0 loratadine 10 mg Tablet See Rx Instructions .ROUTE .COMPLEX RF: 0 esomeprazole magnesium [Nexium] 20 mg Capsule,Delayed Release(Dr/Ec) 40 mg feeding tube BID RF: 0 hydrocodone-acetaminophen 7.5-325 mg/15 mL Solution 15 ml feeding tube Q6H PRN (Reason: Pain) RF: 0 lactulose 10 gram/15 mL Solution 30 ml feeding tube TID RF: 0 Jevity 1.5 Jerry 0.06 gram-1.5 kcal/mL Liquid See Rx Instructions .ROUTE .COMPLEX RF: 0 Tamiflu 6 mg/mL Suspension For Reconstitution 75 mg feeding tube DAILY RF: 0 Discharge Orders: Discharge Order (Routine); Ordered 02/12/20 Ordered By: Taz Garland Referrals: Abram Tellez Jr, MD [Primary Care Provider] - 1-3 days Discharge Diet: Advance as tolerated Discharge Activity: Increase activity as tolerated Patient Instructions: Winter Esophagus (ED), Fecal Impaction (ED) Activity Restrictions/Additional Instructions: Use enemas up to 3 times daily until fecal impaction is resolved. You also may use magnesium citrate per tube once daily x2. Other medications as directed. Return for fever, continued vomiting despite treatment, worsening distention or discomfort, other concerning symptoms. Coding Level of Care Code ED Fundraising Specialist for Chg Fwd Exam Detailed
[2020-02-12] MEDS: iohexol 300 mg/mL 100 mL Btl IV (02:32)
[2020-02-12] MEDS: sodium chloride 0.9% 1,000 ML 999 ML IV (02:55)
[2020-02-12] MEDS: ondansetron 2 mg/ML SDV 2 mL 4 MG IVP (03:00)
[2020-02-12 03:15] LABS: Basophils # 0.1 10^3/uL (0.0-0.1); Eosinophils # 0.1 10^3/uL (0.0-0.8); Eosinophils % 0.7 %; Hematocrit 49.4 % (42.0-52.0); Hemoglobin 15.7 g/dL (11.7-16.6); Lymphocytes # 2.1 10^3/uL (0.8-4.8); Lymphocytes % 18.8 %; Mean Corpuscular HGB Conc 31.8 g/dL (30.0-36.0); Mean Corpuscular Hemoglobin 32.2 pg (28.0-34.0); Mean Corpuscular Volume 101.2 fL (80-94); Mean Platelet Volume 11.4 fL (7.4-10.4); Monocytes % 9.3 %; Neutrophils # 7.85 10^3/uL (1.8-7.7); Nucleated Red Blood Cells % 0 %; Platelet Count 420 10^3/cmm (130-400); Red Blood Count 4.88 10^6/uL (4.1-5.3); Red Cell Distribution Width 12.8 % (12.1-15.1); White Blood Count 11.2 10^3/uL (4.0-10.0)
[2020-02-12 03:28] LABS: Alanine Aminotransferase 24 U/L (0-41); Albumin Level 4.4 g/dL (3.5-5.2); Alkaline Phosphatase 124 IU/L (40-130); Blood Urea Nitrogen 17 mg/dL (6-20); C Reactive Protein 1.7 mg/L (0.0-4.9); Calcium 8.9 mg/dL (8.5-10.5); Carbon Dioxide 29 mmol/L (22-29); Chloride 104 mmol/L (98-107); Globulin 2.8 g/dL (1.3-4.6); Glomerular Filtration Rate 254.3 mL/min (90-130); Glucose 104 mg/dL (65-115); Lipase 45 U/L (13-60); Osmolality Calculated 298 mOsm/kg (285-295); Sodium 143 mmol/L (136-145); Total Bilirubin 0.3 mg/dL (0.15-1.2); Total Protein 7.2 g/dL (6.6-8.7)
[2020-02-12 03:29] LABS: Lactate (Lactic Acid level) 0.8 mmol/L (0.5-2.2)
[2020-02-12 03:30] LABS: Anion Gap 14.3 (5-19); Aspartate Amino Transferase 22 U/L (0-40); Potassium 4.3 mmol/L (3.5-5.1)
--- NOTE | 2020-02-12 04:05 | PC.NURSE ---
report called to [facility]. D/C instructions given to NOLBERTO Krishnan. [facility] ambulance contacted for transport
--- NOTE | 2020-02-12 04:47 | PC.NURSE ---
i agree with the assessment
== END 2020-02-12 04:47 | disposition skilled nursing facility (03) ==
PROVIDERS: Emergency Provider Emergency Medicine; PCP Family Medicine
DX: K21.00 Gastro-esophageal reflux disease with esophagitis, without bleeding (principal); K59.09 Other constipation; Z79.82 Long term (current) use of aspirin
CPT/HCPCS: 12345; 36415; 74177; 80053; 83605; 83690; 85025; 86140; 96361; 96374; 99281; J2405; J7030; Q9967

== ENCOUNTER 2020-08-02 01:23 | Emergency (ER) | payer MEDICAID, SELFPAY ==
[2020-08-02 01:29] VITALS: BP 140/81; PULSE 92; RESP 20; TEMP 36.8; O2SAT 95; BMI 23.5
--- NOTE | 2020-08-02 01:37 | W.ED.GENADLT ---
HPI - General Adult General: Chief complaint: General Medical Stated complaint: BOWEL OBSTRUCTION Time Seen by Provider: 08/02/20 01:36 History of Present Illness: HPI narrative: Patient is a 29-year-old male skilled nursing patient with a history of traumatic brain injury. He is bed ridden essentially nonverbal. He has significant spastic paralysis. He was sent here via EMS by the skilled nursing staff because patient's G-tube had some blood and fecal matter coming out of it. They were concerned about a possible bowel obstruction. Associated symptoms: Deny chest pain, dyspnea, headache(s), nausea, rash, palpitations or vomiting Review of Systems Narrative: Nursing staff noticed some blood in fecal matter coming out of G-tube tonight. Const: Denies: fever(s), chills or fatigue Eyes: Denies: change in vision or eye discomfort ENMT: Denies: throat pain, odynophagia, nasal discharge or nasal congestion Card: Denies: chest pain, palpitations, edema, swelling of feet/ankles, dyspnea on exertion or orthopnea Resp: Denies: dyspnea, productive cough or non-productive cough GI: Reports: constipation; Denies: abdominal pain, nausea, vomiting, diarrhea or hematochezia : Denies: flank pain, difficulty urinating, dysuria or hematuria Musc: Denies: neck pain, back pain or extremity swelling Skin/Breast: Denies: rash or new lesions Neuro: Denies: headache(s), numbness in extremities or weakness in extremities PFS ED PFSH: Medical History Chronic constipation TBI (traumatic brain injury) Surgical History Hx of tracheostomy S/P percutaneous endoscopic gastrostomy (PEG) tube placement Social History Smoking and tobacco status: never smoked Housing: Retirement Current occupational status: disabled Physical Exam Const: COMMON NORMALS: alert (yes) EXAM LIMITATIONS: physical limitations and other limitations ORIENTATION/CONSCIOUSNESS: Yes awake (yes) Neck/C-Spine: COMMON NORMALS: supple GENERAL: Yes normal visual inspection Chest: COMMONS NORMALS: normal inspection of the chest Resp: COMMON NORMALS: normal respiratory effort, No retractions, No use of accessory muscles and clear to auscultation bilaterally AUSCULTATION: clear to auscultation bilaterally Cardio: COMMON NORMALS: regular rate, regular rhythm, S1 normal heart sound present, S2 normal heart sound present, No gallops present (Cardio), No clicks present (Cardio), No murmurs present (Cardio) and Peripheral pulses 2+ throughout RATE: regular rate RHYTHM: regular rhythm HEART SOUNDS: S1 normal heart sound present and S2 normal heart sound present PERIPHERAL PULSES: Peripheral pulses 2+ throughout GI: COMMON NORMALS: no masses INSPECTION: Yes abdominal distension AUSCULTATION: Yes Hypoactive bowel sounds present PALPATION: Yes Firmness to palpation present (GI) Neuro: SENSORIUM/ORIENTATION: Yes alert (yes) SPEECH: Other neuro speech findings (Nonverbal) GAIT: Yes Spastic hemiparesis gait present Skin: GENERAL SKIN EXAM: dry skin Course Vital Signs: Vital signs: Vital Signs Temperature 98 F 08/02/20 02:10 Pulse Rate 88 08/02/20 08:37 Respiratory Rate 18 08/02/20 08:37 Blood Pressure 122/83 08/02/20 08:37 Pulse Oximetry 97 08/02/20 08:37 MDM - General Adult MDM Narrative: Medical decision making narrative: Patient is a 29-year-old male that lives in a skilled nursing with a history of traumatic brain injury. Patient has a G-tube and nursing staff stated that today he had fecal matter and blood coming out of his G-tube. Abdominal exam noted some hypoactive bowel sounds with abdominal distention and firmness upon palpation of the abdomen as well. White blood cell count 14.3. Rest of his labs were unremarkable. CT of abdomen pelvis showed large amount of stool in distal sigmoid colon and rectum, ileus but no obstruction noted. Patient was diagnosed with constipation and was told to continue taking the MiraLAX and senna daily. Patient can take mag citrate as needed for constipation as well. Have patient follow-up with PCP in 7 to 10 days for reevaluation. Return to ED precautions given. Patient was discharged back to skilled nursing. Lab Data: Attestation: I reviewed the patient's lab results. Labs: Lab Results 08/02/20 08/02/20 08/02/20 Range/Units 02:00 02:00 02:06 WBC 14.3 H (4.0-10.0) 10^3/ uL RBC 4.71 (4.1-5.3) 10^6/u L Hgb 15.5 (11.7-16.6) g/dL Hct 47.5 (42.0-52.0) % MCV 100.8 H (80-94) fL MCH 32.9 (28.0-34.0) pg MCHC 32.6 (30.0-36.0) g/dL RDW 12.1 (12.1-15.1) % Plt Count 483 H (130-400) 10^3/c mm MPV 11.0 H (7.4-10.4) fL Neut % (Auto) 63.2 % Lymph % (Auto) 25.9 % Pepin % (Auto) 8.1 % Eos % (Auto) 1.9 % Baso % (Auto) 0.6 % Neut # (Auto) 9.06 H (1.8-7.7) 10^3/u L Lymph # (Auto) 3.7 (0.8-4.8) 10^3/u L Pepin # (Auto) 1.2 H (0.2-0.9) 10^3/u L Eos # (Auto) 0.3 (0.0-0.8) 10^3/u L Baso # (Auto) 0.1 (0.0-0.1) 10^3/u L Nucleated RBC % (a uto) 0 % Nucleated RBCs # 0.0 /100WBC Sodium 141 (136-145) mmol/L Potassium 4.2 (3.5-5.1) mmol/L Chloride 104 (98-107) mmol/L Carbon Dioxide 27 (22-29) mmol/L Anion Gap 14.2 (5-19) BUN 12 (6-20) mg/dL Creatinine 0.4 L (0.7-1.2) mg/dL GFR Calculation 254.3 H (90-130) mL/min Glucose 95 (65-115) mg/dL Calculated Osmolal ity 292 (285-295) mOsm/k g Calcium 8.6 (8.5-10.5) mg/dL Total Bilirubin 0.3 (0.15-1.2) mg/dL AST 14 (0-40) U/L ALT 20 (0-41) U/L Alkaline Phosphata se 96 (40-130) IU/L Total Protein 7.0 (6.6-8.7) g/dL Albumin 4.3 (3.5-5.2) g/dL Globulin 2.7 (1.3-4.6) g/dL Lipase 57 (13-60) U/L Urine Color Yellow (Yellow) Urine Appearance Clear (CLEAR) Urine pH 5 (5-7) Ur Specific Gravit y 1.015 (1.005-1.030) Urine Protein Neg (Negative) Urine Glucose (UA) Norm (Normal) Urine Ketones 1+ H (Negative) Urine Blood Neg (Negative) Urine Nitrate Negative (Negative) Urine Bilirubin Neg (Negative) Urine Urobilinogen Norm (Negative) mg/dL Ur Leukocyte Roseanna ase Negative (Negative) Urine RBC None (0-2) /hpf Urine WBC None (0-5) /hpf Ur Squamous Epith Cells 0-4 H (0-5) /hpf Ur Transition Epit h Cell None /hpf Ur Renal Epithelia l Cell N /hpf Calcium Oxalate Cr ystal None /hpf Uric Acid Crystals N /hpf Triple Phos Solange ls None /hpf Other Crystals N /hpf Amorphous Sediment Not Reportable Urine Bacteria None (NONE) /hpf Urine Mucus N /hpf Imaging Data^: CT Abd/Pel: Attestation: I personally reviewed and interpreted this imaging study as follows: Radiologist's impression: [address] [address] [address] Scan Report Signed Patient: Jefe Blackmon Unit #: [id number] : 1990 Age/Sex: 29 / M ADM Date: 08/02/20 Loc: ER Room/Bed: Attending Dr: Ordering Provider/Ordering MD: Jasper English Date of Service: 08/02/20 Procedure(s): CT abdomen pelvis w con* [id number] Accession Number(s): [id number] Report Number: [id number] PROCEDURE INFORMATION: Exam: CT Abdomen And Pelvis With Contrast Exam date and time: 08/02/2020 1:45 AM Age: 29 years old Clinical indication: Prior surgery; Surgery type: G tube; Patient HX: Fecal return from g-tube. Patient arms contracted in place. ; Additional info: Possible bowel obstruction TECHNIQUE: Imaging protocol: Computed tomography of the abdomen and pelvis with contrast. Radiation optimization: All CT scans at this facility use at least one of these dose optimization techniques: automated exposure control; mA and/or kV adjustment per patient size (includes targeted exams where dose is matched to clinical indication); or iterative reconstruction. Contrast material: OMNI 300; Contrast volume: 95 ml; Contrast route: INTRAVENOUS (IV); COMPARISON: CT abdomen pelvis w con* [id number] 02/12/2020 2:29 AM RADIATION DOSE METRICS: Total DLP (mGy-cm): 1608.79 FINDINGS: Tubes, catheters and devices: G-tube in stable position. Stable 9 mm left renal cyst. Lungs: The lung bases are clear. No effusion Liver: Normal. No mass. Gallbladder and bile ducts: No wall thickening, pericholecystic fluid or stones. Pancreas: Normal. No ductal dilation. Spleen: Stable irregularity of the spleen. Adrenal glands: Normal. No mass. Kidneys and ureters: Stable nonobstructing 4 mm left renal pelvis stone. Stomach and bowel: Large amount of formed stool in the distal sigmoid colon and rectum. There is diffuse common gas-filled colon without colon dilation or small bowel dilation. Appendix: No evidence of appendicitis. Intraperitoneal space: Unremarkable. No free air. No significant fluid collection. Vasculature: An IVC filter is in place. Lymph nodes: Unremarkable. No enlarged lymph nodes. Urinary bladder: Unremarkable as visualized. Reproductive: Unremarkable as visualized. Bones/joints: Unremarkable. No acute fracture. Soft tissues: Unremarkable. CT/CT abdomen pelvis w con* [id number] IMPRESSION: 1. Large amount of formed stool in the distal sigmoid colon and rectum. 2. Ileus but no obstruction. 3. 4 mm nonobstructing left renal pelvis stone. COMMENTS: For patients with an IVC filter, recommend assessment for a management plan for the patient's IVC filter. If there is no established management plan, recommend referral to an interventional clinician on a nonemergent basis for evaluation. Radiation Dose CTDIVOL = (mGy): DLP = 1608.79 (mGy-cm) Dictated By: Walter Thakkar Signed By: Walter Thakkar Signed Date/Time: 08/02/20255 DD/ 3 Discharge Plan Discharge Patient Disposition: Home Clinical Impression: Constipation Qualifiers: Constipation type: slow transit constipation Qualified Code(s): K59.01 - Slow transit constipation Condition: Stable Prescriptions: No Action sennosides [senna] 8.6 mg Tablet 17.2 mg feeding tube DAILY RF: 0 acetaminophen 650 mg Suppository [address] Q4H PRN (Reason: Pain) RF: 0 polyethylene glycol 3350 [Miralax] 17 gram Powder In Packet 17 g feeding tube DAILY RF: 0 metoclopramide HCl 5 mg/5 mL Solution 10 mg feeding tube Q8H RF: 0 acetaminophen 500 mg Tablet 1,000 mg PO DAILY RF: 0 magnesium hydroxide [Milk of Magnesia] 400 mg/5 mL Suspension See Rx Instructions .ROUTE .COMPLEX PRN (Reason: Constipation) RF: 0 baclofen 10 mg Tablet 20 mg feeding tube TID RF: 0 bisacodyl 10 mg Suppository [address] DAILY PRN (Reason: Constipation) RF: 0 bisacodyl 10 mg Suppository See Rx Instructions .ROUTE .COMPLEX RF: 0 Enema Disposable 19-7 gram/118 mL Enema [address] DAILY PRN (Reason: Constipation) RF: 0 aspirin 81 mg Tablet,Chewable 81 mg PO DAILY RF: 0 loratadine 10 mg Tablet See Rx Instructions .ROUTE .COMPLEX RF: 0 esomeprazole magnesium [Nexium] 20 mg Capsule,Delayed Release(Dr/Ec) 40 mg feeding tube BID RF: 0 hydrocodone-acetaminophen 7.5-325 mg/15 mL Solution 15 ml feeding tube Q6H PRN (Reason: Pain) RF: 0 lactulose 10 gram/15 mL Solution 30 ml feeding tube TID RF: 0 Jevity 1.5 Jerry 0.06 gram-1.5 kcal/mL Liquid See Rx Instructions .ROUTE .COMPLEX RF: 0 Tamiflu 6 mg/mL Suspension For Reconstitution 75 mg feeding tube DAILY RF: 0 magnesium citrate Solution 300 ml PO DAILY PRN (Reason: constipation) Qty: 296 RF: 2 Discharge Orders: Discharge ED (Routine); Ordered 08/02/20 Ordered By: Jasper English Referrals: Abram Tellez Jr, MD [Primary Care Provider] - Discharge Diet: Regular Discharge Activity: Resume usual activity Patient Instructions: Constipation (ED) Activity Restrictions/Additional Instructions: Follow-up with medical provider as directed in 7 to 10 days for reevaluation. Continue giving patient MiraLAX and senna daily as previously prescribed. Give mag citrate as needed for constipation as well. Have patient continue taking all home medications as prescribed. Return to the ER or your medical provider if condition worsens. Please read and understand discharge instructions. Thank you for choosing [facility] for your healthcare needs today. Please realize this is an emergency room and that we are providing you with a medical screening exam and this may not be complete and all inclusive of all the testing and or work up that you may need to determine your ailment or severity of your illness. It is very important that you follow up as instructed or that you return to the Emergency Department should you have concerns or if your condition changes or worsens in any way. Coding Level of Care Code ED Muck Hauler for [place] Fwd Exam Comprehensive
--- NOTE | 2020-08-02 01:42 | CTR_ITS ---
PROCEDURE INFORMATION: Exam: CT Abdomen And Pelvis With Contrast Exam date and time: 08/02/2020 1:45 AM Age: 29 years old Clinical indication: Prior surgery; Surgery type: G tube; Patient HX: Fecal return from g-tube. Patient arms contracted in place. ; Additional info: Possible bowel obstruction TECHNIQUE: Imaging protocol: Computed tomography of the abdomen and pelvis with contrast. Radiation optimization: All CT scans at this facility use at least one of these dose optimization techniques: automated exposure control; mA and/or kV adjustment per patient size (includes targeted exams where dose is matched to clinical indication); or iterative reconstruction. Contrast material: OMNI 300; Contrast volume: 95 ml; Contrast route: INTRAVENOUS (IV); COMPARISON: CT abdomen pelvis w con* [id number] 02/12/2020 2:29 AM RADIATION DOSE METRICS: Total DLP (mGy-cm): 1608.79 FINDINGS: Tubes, catheters and devices: G-tube in stable position. Stable 9 mm left renal cyst. Lungs: The lung bases are clear. No effusion Liver: Normal. No mass. Gallbladder and bile ducts: No wall thickening, pericholecystic fluid or stones. Pancreas: Normal. No ductal dilation. Spleen: Stable irregularity of the spleen. Adrenal glands: Normal. No mass. Kidneys and ureters: Stable nonobstructing 4 mm left renal pelvis stone. Stomach and bowel: Large amount of formed stool in the distal sigmoid colon and rectum. There is diffuse common gas-filled colon without colon dilation or small bowel dilation. Appendix: No evidence of appendicitis. Intraperitoneal space: Unremarkable. No free air. No significant fluid collection. Vasculature: An IVC filter is in place. Lymph nodes: Unremarkable. No enlarged lymph nodes. Urinary bladder: Unremarkable as visualized. Reproductive: Unremarkable as visualized. Bones/joints: Unremarkable. No acute fracture. Soft tissues: Unremarkable. CT/CT abdomen pelvis w con* [id number] IMPRESSION: 1. Large amount of formed stool in the distal sigmoid colon and rectum. 2. Ileus but no obstruction. 3. 4 mm nonobstructing left renal pelvis stone. COMMENTS: For patients with an IVC filter, recommend assessment for a management plan for the patient's IVC filter. If there is no established management plan, recommend referral to an interventional clinician on a nonemergent basis for evaluation. Radiation Dose CTDIVOL = (mGy): DLP = 1608.79 (mGy-cm)
[2020-08-02 02:10] VITALS: BP 131/76; PULSE 91; RESP 17; TEMP 36.6; O2SAT 95
[2020-08-02 02:12] LABS: Basophils # 0.1 10^3/uL (0.0-0.1); Basophils % 0.6 %; Eosinophils # 0.3 10^3/uL (0.0-0.8); Eosinophils % 1.9 %; Hematocrit 47.5 % (42.0-52.0); Hemoglobin 15.5 g/dL (11.7-16.6); Lymphocytes # 3.7 10^3/uL (0.8-4.8); Lymphocytes % 25.9 %; Mean Corpuscular HGB Conc 32.6 g/dL (30.0-36.0); Mean Corpuscular Hemoglobin 32.9 pg (28.0-34.0); Mean Corpuscular Volume 100.8 fL (80-94); Monocytes # 1.2 10^3/uL (0.2-0.9); Monocytes % 8.1 %; Neutrophils # 9.06 10^3/uL (1.8-7.7); Neutrophils % 63.2 %; Nucleated Red Blood Cells % 0 %; Platelet Count 483 10^3/cmm (130-400); Red Blood Count 4.71 10^6/uL (4.1-5.3); Red Cell Distribution Width 12.1 % (12.1-15.1); White Blood Count 14.3 10^3/uL (4.0-10.0)
[2020-08-02] MEDS: iohexol 300 mg/mL 100 mL Btl IV (02:12)
[2020-08-02 02:38] LABS: Alanine Aminotransferase 20 U/L (0-41); Albumin Level 4.3 g/dL (3.5-5.2); Alkaline Phosphatase 96 IU/L (40-130); Anion Gap 14.2 (5-19); Aspartate Amino Transferase 14 U/L (0-40); Blood Urea Nitrogen 12 mg/dL (6-20); Calcium 8.6 mg/dL (8.5-10.5); Carbon Dioxide 27 mmol/L (22-29); Chloride 104 mmol/L (98-107); Globulin 2.7 g/dL (1.3-4.6); Glomerular Filtration Rate 254.3 mL/min (90-130); Glucose 95 mg/dL (65-115); Lipase 57 U/L (13-60); Osmolality Calculated 292 mOsm/kg (285-295); Potassium 4.2 mmol/L (3.5-5.1); Sodium 141 mmol/L (136-145); Total Bilirubin 0.3 mg/dL (0.15-1.2)
[2020-08-02 02:41] LABS: Bilirubin Urine Neg (Negative); Blood Urine Neg (Negative); Glucose Urine UA Norm (Normal); Ketones Urine 1+ (Negative); Leukocyte Esterase Urine Negative (Negative); Mucus Urine N /hpf; Nitrate Urine Negative (Negative); Other Crystals Urine N /hpf; Protein Urine Neg (Negative); Renal Epithelial Cells Urine N /hpf; Specific Gravity, Urine 1.015 (1.005-1.030); Squamous Epithelial Cell Urine 0-4 /hpf (0-5); Uric Acid Crystals Urine N /hpf; Urine Appearance Clear (CLEAR); Urine Color Yellow (Yellow); Urobilinogen Urine Norm (Negative); pH Urine 5 (5-7)
[2020-08-02 02:42] LABS: Add Urine Culture? No
--- NOTE | 2020-08-02 03:35 | PC.NURSE ---
Discharge report to Aria at [facility]. transportation arranged with [facility], confirmation [id number]
[2020-08-02 08:37] VITALS: BP 122/83; PULSE 88; RESP 18; O2SAT 97
== END 2020-08-02 08:39 | disposition home or self-care (01) ==
PROVIDERS: Emergency Provider Physician Assistant; PCP Family Medicine
DX: K59.01 Slow transit constipation (principal); Z79.82 Long term (current) use of aspirin; Z87.820 Personal history of traumatic brain injury
CPT/HCPCS: 74177; 80053; 81001; 83690; 85025; 99283; Q9967

== ENCOUNTER 2020-08-04 08:30 | Emergency (ER) | payer MEDICAID, SELFPAY ==
[2020-08-04 08:30] VITALS: BP 156/118; PULSE 98; RESP 14; TEMP 36.8; O2SAT 94; BMI 21.5
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
--- NOTE | 2020-08-04 09:06 | CT_ITS ---
WS: [id number] CT ABDOMEN AND PELVIS WITH CONTRAST HISTORY: Abdominal pain. Bloody drainage from feeding tube. TECHNIQUE: Imaging performed of the abdomen and pelvis with IV contrast. Single phase imaging of the abdomen. Coronal and sagittal reformats are submitted. All CT scans at [facility] use at least one of these dose optimization techniques: automated exposure control; mA and/or kV adjustment per patient size (includes targeted exams where dose is matched to clinical indication); or iterativ e reconstruction. IV CONTRAST: Omnipaque 300; 95 mL IV. Oral contrast: No DLP: 1810.91 mGy.cm COMPARISON: 08/02/2020 Lower thorax: Volume loss and dependent changes at the lung bases from atelectasis and poor inspirati on. Distal esophagus is air-filled. Liver/biliary system: Artifact through the liver from the patient's arms. No definite abnormality. No bile duct dilatation. Gallbladder: Poorly visualized gallbladder due to artifact. Gallbladder does not appear distended and there is no adjacent inflammation. Pancreas: Normal size pancreas and pancreatic duct. No adjacent inflammation. Spleen: Lobulated soft tissue densities in the LEFT upper quadrant are probably autoinfarction of the spleen. No interval change. Adrenal glands: Normal. Right kidney: Nonobstructing 3 mm calcification RIGHT kidney. Left kidney: Cortical cyst upper pole. Aorta: Normal. IVC filter at the level of the renal veins. Lymphadenopathy: There are numerous small lymph nodes in the mesentery and RIGHT lower quadrant. Thes e were present on the most recent exam also. Free fluid: None. GI tract: Large amount of air throughout the colon. There is retained fecal material with no wall thi ckening. No small bowel dilatation. There is a G-tube present with the balloon distended in the proxi mal duodenum. Diameter of the balloon associated with the gastrostomy tube is 3.4 cm. Abdominal wall: Mild diastases of the abdominis rectus. No herniation of GI tract. Pelvis: No free fluid or adenopathy within the pelvis. Bones: Unremarkable. CT/CT abdomen pelvis w con* [id number] IMPRESSION: 1. No acute abdominal findings are identified. 2. There is a gastrostomy tube present with the balloon in the proximal duoden um. The balloon associated with a gastrostomy tube is distended with a transver se diameter of 3.4 cm. Although there is marked distention of the balloon there is no obstruction. Possibility of an ulceration associated with an overly dist ended balloon should be considered. 3. No free air. No obstruction. 4. Marked air distention throughout the colon and fecal retention. Notified Pancho Vega DO at 08/04/2020 10:22 AM.
[2020-08-04 09:30] VITALS: BP 106/66; PULSE 79; O2SAT 97
[2020-08-04 09:32] LABS: Basophils # 0.1 10^3/uL (0.0-0.1); Basophils % 0.9 %; Eosinophils # 0.2 10^3/uL (0.0-0.8); Eosinophils % 2.2 %; Hematocrit 46.8 % (42.0-52.0); Hemoglobin 14.8 g/dL (11.7-16.6); Lymphocytes # 2.7 10^3/uL (0.8-4.8); Mean Corpuscular HGB Conc 31.6 g/dL (30.0-36.0); Mean Corpuscular Hemoglobin 32.1 pg (28.0-34.0); Mean Corpuscular Volume 101.5 fL (80-94); Mean Platelet Volume 11.7 fL (7.4-10.4); Monocytes # 0.9 10^3/uL (0.2-0.9); Monocytes % 8.6 %; Neutrophils # 6.78 10^3/uL (1.8-7.7); Neutrophils % 62.9 %; Nucleated Red Blood Cells % 0 %; Platelet Count 436 10^3/cmm (130-400); Red Blood Count 4.61 10^6/uL (4.1-5.3); Red Cell Distribution Width 12.4 % (12.1-15.1); White Blood Count 10.8 10^3/uL (4.0-10.0)
[2020-08-04 09:48] LABS: Add Urine Microscopic? YES; Bilirubin Urine Neg (Negative); Blood Urine 2+ (Negative); Glucose Urine UA Norm (Normal); Ketones Urine Negative (Negative); Leukocyte Esterase Urine Negative (Negative); Nitrate Urine Negative (Negative); Protein Urine Neg (Negative); Specific Gravity, Urine 1.015 (1.005-1.030); Sulfosalicylic Acid Urine Negative (Negative); Urine Appearance Clear (CLEAR); Urine Color Straw (Yellow); Urobilinogen Urine Norm (Negative); pH Urine 8 (5-7)
[2020-08-04 10:00] LABS: Bacteria Urine 1+ /hpf; Squamous Epithelial Cell Urine 0-4 /hpf (0-5); WBC Urine 0-4 /hpf (0-5)
[2020-08-04 10:01] LABS: INR 0.98 (0.8-1.2)
[2020-08-04 10:01] LABS: Other Casts Urine WBC CAST /lpf
[2020-08-04 10:02] LABS: Partial Thromboplastin Time 33.5 SECONDS (23.9-36.7)
[2020-08-04 10:03] LABS: Add Urine Culture? No
[2020-08-04] MEDS: iohexol 300 mg/mL 100 mL Btl IV (10:05)
[2020-08-04 10:08] LABS: Alanine Aminotransferase 17 U/L (0-41); Alkaline Phosphatase 87 IU/L (40-130); Aspartate Amino Transferase 13 U/L (0-40); Blood Urea Nitrogen 9 mg/dL (6-20); Calcium 8.5 mg/dL (8.5-10.5); Carbon Dioxide 24 mmol/L (22-29); Chloride 106 mmol/L (98-107); Globulin 2.7 g/dL (1.3-4.6); Glomerular Filtration Rate 354.5 mL/min (90-130); Glucose 92 mg/dL (65-115); Lipase 32 U/L (13-60); Osmolality Calculated 284 mOsm/kg (285-295); Sodium 138 mmol/L (136-145); Total Bilirubin 0.5 mg/dL (0.15-1.2); Total Protein 6.7 g/dL (6.6-8.7)
--- NOTE | 2020-08-04 11:07 | XR_ITS ---
WS: [id number] KUB, portable AP supine, 08/04/2020 Clinical Data: check PEG w Gastrografin Comparison: KUB, 06/10/2019. Findings: No abnormal intraabdominal masses or calcifications are seen. There is no dilatated small bowel or ev idence of obstruction. There is contrast material in the kidneys and the bladder from a recent CT scan of the abdomen. The i nferior vena cava caval filter remains in position. There is air in the small bowel and colon consist ent with generalized ileus. The patient's breathing probably obscures the dilated gastric tube. XR/XR KUB portable [id number] Impression: Generalized ileus.
[2020-08-04] MEDS: diatrizoate meglumine 120 mL Sol XX (12:19)
[2020-08-04 13:30] VITALS: BP 111/77; PULSE 83; O2SAT 97
[2020-08-04 14:49] VITALS: BP 117/71; PULSE 81; O2SAT 98
[2020-08-04 15:38] VITALS: BP 111/69; PULSE 68; O2SAT 98
== END 2020-08-04 17:32 | disposition home or self-care (01) ==
PROVIDERS: Emergency Provider Family Medicine; PCP Family Medicine
DX: K94.20 Gastrostomy complication, unspecified (principal); Z79.82 Long term (current) use of aspirin; Z87.820 Personal history of traumatic brain injury
CPT/HCPCS: 36415; 51701; 74018; 74177; 80053; 81001; 83690; 85025; 85610; 85730; 99284; Q9963; Q9967

== ENCOUNTER 2020-08-07 19:31 | Inpatient (IN) | payer MEDICAID, SELFPAY ==
[2020-08-07] VITALS (7 sets, daily range): BP systolic 93–150; BP diastolic 72–117; PULSE 122–136; RESP 17–20; TEMP 37–37.7; O2SAT 92–96; BMI 25.1
--- NOTE | 2020-08-07 20:07 | ED_ITS ---
HPI - General Adult General: Chief complaint: General Medical Stated complaint: BLACK TARY STOOL Time Seen by Provider: 08/07/20 19:35 Source: EMS Mode of arrival: EMS Limitations: physical limitation History of Present Illness: HPI narrative: 29-year-old male has a history of traumatic brain injury who is now in a halfway and is bedbound and mute. Patient receives tube feedings. No history is available from him and he does not follow any commands. Per halfway he has been having black stools and has become tachycardic. His hemoglobin there is dropped from 12-8.4 in a week. Patient here is tachycardic has a normal blood pressure. He does have black stools on his rectal exam. No other history is available. Review of Systems General: Reports: ROS unobtainable due to mental status PFS ED PFSH: Medical History (Updated 08/07/20 @ 21:56 by Scar Aguirre MD) Chronic constipation TBI (traumatic brain injury) Surgical History Hx of tracheostomy S/P percutaneous endoscopic gastrostomy (PEG) tube placement Social History Smoking and tobacco status: never smoked Housing: Half-Way Current occupational status: disabled Physical Exam Const: COMMON NORMALS: negative for patient oriented x3 GENERAL APPEARANCE: ill appearing HENMT: COMMON NORMALS: normocephalic and atraumatic HEAD & SCALP: normocephalic and atraumatic Eye: COMMON NORMALS: Equal, round and reactive pupils present and EOMs intact bilaterally PUPIL: Yes Equal, round and reactive pupils present Neck/C-Spine: COMMON NORMALS: full ROM and supple Chest: COMMONS NORMALS: normal inspection of the chest and normal palpation of entire chest wall Resp: COMMON NORMALS: normal respiratory effort, No retractions, No use of accessory muscles and clear to auscultation bilaterally AUSCULTATION: clear to auscultation bilaterally Cardio: COMMON NORMALS: regular rhythm and No murmurs present (Cardio) RATE: tachycardic RHYTHM: regular rhythm GI: COMMON NORMALS: Normal to inspection, nondistended, normoactive bowel sounds present, Soft to palpation, non-tender and no masses PALPATION: Yes Soft to palpation OTHER: hemoccult is positive dark tarry stool on exam Extremity: COMMON NORMALS: normal to inspection and full ROM Neuro: COMMON NORMALS: negative for patient oriented x3 Psych: COMMON NORMALS: negative for mental status grossly normal Skin: COMMON NORMALS: no rashes or lesions noted and no wounds GENERAL SKIN EXAM: no rashes or lesions noted Course Vital Signs: Vital signs: Vital Signs Temperature 98.6 F 08/07/20 19:40 Pulse Rate 131 H 08/07/20 21:46 Respiratory Rate 19 H 08/07/20 21:46 Blood Pressure 104/83 08/07/20 21:46 Pulse Oximetry 95 08/07/20 21:46 MDM - General Adult MDM Narrative: Medical decision making narrative: Patient presents with an upper GI bleed. Patient given 1 unit of blood here. His vital signs here been stable. Spoke to hospitalist along with surgeon. Patient will admit patient at this time he has been stable while in the ER. Lab Data: Labs: Lab Results 08/07/20 08/07/20 08/07/20 Range/Units 20:29 20:29 20:29 WBC 16.0 H (4.0-10.0) 10^3/ uL RBC 2.43 L (4.1-5.3) 10^6/u L Hgb 8.0 L (11.7-16.6) g/dL Hct 24.8 L (42.0-52.0) % MCV 102.1 H (80-94) fL MCH 32.9 (28.0-34.0) pg MCHC 32.3 (30.0-36.0) g/dL RDW 12.9 (12.1-15.1) % Plt Count 385 (130-400) 10^3/c mm MPV 12.0 H (7.4-10.4) fL Neut % (Auto) 58.6 % Lymph % (Auto) 30.4 % Ware % (Auto) 8.7 % Eos % (Auto) 1.3 % Baso % (Auto) 0.6 % Neut # (Auto) 9.36 H (1.8-7.7) 10^3/u L Lymph # (Auto) 4.9 H (0.8-4.8) 10^3/u L Ware # (Auto) 1.4 H (0.2-0.9) 10^3/u L Eos # (Auto) 0.2 (0.0-0.8) 10^3/u L Baso # (Auto) 0.1 (0.0-0.1) 10^3/u L Nucleated RBC % (a uto) 0.1 % Nucleated RBCs # 0.0 /100WBC PT 13.10 (12.1-14.9) SECO NDS INR 0.96 (0.8-1.2) Sodium (136-145) mmol/L Potassium (3.5-5.1) mmol/L Chloride (98-107) mmol/L Carbon Dioxide (22-29) mmol/L Anion Gap (5-19) BUN (6-20) mg/dL Creatinine (0.7-1.2) mg/dL GFR Calculation (90-130) mL/min Glucose (65-115) mg/dL Calculated Osmolal ity (285-295) mOsm/k g Calcium (8.5-10.5) mg/dL Total Bilirubin (0.15-1.2) mg/dL AST (0-40) U/L ALT (0-41) U/L Alkaline Phosphata se (40-130) IU/L Total Protein (6.6-8.7) g/dL Albumin (3.5-5.2) g/dL Globulin (1.3-4.6) g/dL Blood Type O Positive Rho(D) Type Positive / 4+ Antibody Screen Negative Crossmatch See Detail 08/07/20 Range/Units 20:29 WBC (4.0-10.0) 10^3/ uL RBC (4.1-5.3) 10^6/u L Hgb (11.7-16.6) g/dL Hct (42.0-52.0) % MCV (80-94) fL MCH (28.0-34.0) pg MCHC (30.0-36.0) g/dL RDW (12.1-15.1) % Plt Count (130-400) 10^3/c mm MPV (7.4-10.4) fL Neut % (Auto) % Lymph % (Auto) % Ware % (Auto) % Eos % (Auto) % Baso % (Auto) % Neut # (Auto) (1.8-7.7) 10^3/u L Lymph # (Auto) (0.8-4.8) 10^3/u L Ware # (Auto) (0.2-0.9) 10^3/u L Eos # (Auto) (0.0-0.8) 10^3/u L Baso # (Auto) (0.0-0.1) 10^3/u L Nucleated RBC % (a uto) % Nucleated RBCs # /100WBC PT (12.1-14.9) SECO NDS INR (0.8-1.2) Sodium 140 (136-145) mmol/L Potassium 4.0 (3.5-5.1) mmol/L Chloride 105 (98-107) mmol/L Carbon Dioxide 27 (22-29) mmol/L Anion Gap 12.0 (5-19) BUN 21 H (6-20) mg/dL Creatinine 0.4 L (0.7-1.2) mg/dL GFR Calculation 254.3 H (90-130) mL/min Glucose 106 (65-115) mg/dL Calculated Osmolal ity 293 (285-295) mOsm/k g Calcium 8.5 (8.5-10.5) mg/dL Total Bilirubin 0.2 (0.15-1.2) mg/dL AST 19 (0-40) U/L ALT 27 (0-41) U/L Alkaline Phosphata se 72 (40-130) IU/L Total Protein 6.5 L (6.6-8.7) g/dL Albumin 4.1 (3.5-5.2) g/dL Globulin 2.4 (1.3-4.6) g/dL Blood Type Rho(D) Type Antibody Screen Crossmatch Critical Care Time Critical Care Time: Critical Care Time: Yes Total Critical Care Time: 36 Attestation: This case had a high probability of a clinically significant, sudden, or life threatening deterioration of this patient's condition which required my full and direct attention, intervention and personal management. Discharge Plan Discharge Patient Disposition: Admitted As Inpatient Clinical Impression: Acute upper GI bleed Condition: Stable Coding Level of Care Code ED Housing Quality Standard Inspector for [place] Fwd Exam Comprehensive
[2020-08-07] MEDS: sodium chloride 0.9% 1,000 ML 999 ML IV (20:36)
[2020-08-07] MEDS: pantoprazole 40 mg SDV 80 MG IVP (20:37)
[2020-08-07 20:44] LABS: Basophils # 0.1 10^3/uL (0.0-0.1); Basophils % 0.6 %; Eosinophils # 0.2 10^3/uL (0.0-0.8); Eosinophils % 1.3 %; Hematocrit 24.8 % (42.0-52.0); Lymphocytes # 4.9 10^3/uL (0.8-4.8); Lymphocytes % 30.4 %; Mean Corpuscular HGB Conc 32.3 g/dL (30.0-36.0); Mean Corpuscular Hemoglobin 32.9 pg (28.0-34.0); Mean Corpuscular Volume 102.1 fL (80-94); Monocytes # 1.4 10^3/uL (0.2-0.9); Monocytes % 8.7 %; Neutrophils # 9.36 10^3/uL (1.8-7.7); Neutrophils % 58.6 %; Nucleated Red Blood Cells % 0.1 %; Platelet Count 385 10^3/cmm (130-400); Red Blood Count 2.43 10^6/uL (4.1-5.3); Red Cell Distribution Width 12.9 % (12.1-15.1)
[2020-08-07 20:50] LABS: INR 0.96 (0.8-1.2)
[2020-08-07 20:55] LABS: Alanine Aminotransferase 27 U/L (0-41); Albumin Level 4.1 g/dL (3.5-5.2); Alkaline Phosphatase 72 IU/L (40-130); Aspartate Amino Transferase 19 U/L (0-40); Blood Urea Nitrogen 21 mg/dL (6-20); Calcium 8.5 mg/dL (8.5-10.5); Carbon Dioxide 27 mmol/L (22-29); Chloride 105 mmol/L (98-107); Globulin 2.4 g/dL (1.3-4.6); Glomerular Filtration Rate 254.3 mL/min (90-130); Glucose 106 mg/dL (65-115); Osmolality Calculated 293 mOsm/kg (285-295); Sodium 140 mmol/L (136-145); Total Bilirubin 0.2 mg/dL (0.15-1.2); Total Protein 6.5 g/dL (6.6-8.7)
--- NOTE | 2020-08-07 21:15 | P.HP_ITS ---
Providers/Chief Complaint Primary Care Provider: Abram Tellez Jr, MD Chief Complaint: BLACK TARY STOOL History of Present Illness Jefe Blackmon is a 29 year old male who has history of traumatic brain injury, spastic quadriplegia, nonverbal, bedbound, gets feeding via PEG tube presented today for anemia. [facility] is a [facility], on 08/04 his hemoglobin was 14, today he started having dark stools, melanotic, when CBC was checked hemoglobin was low 8.0, tachycardia heart rate above 110 but no hypotension noted. He was sent to the ER for further evaluation. He has been getting aspirin, does not take any anticoagulating agent, gets feeding via PEG tube. He also gets Protonix 40mg on daily basis. Diagnosis in the ER revealed hemoglobin 8 with macrocytosis, melanotic stools, mother at the bedside. He is getting 1 unit of PRBC, Dr. Watson consulted and notified, at the time of my evaluation heart rate 120, systolic blood pressure 110/89 mmHg. he also received 1 L normal saline in the ER. Review of Systems General: Reports: ROS unobtainable due to medical condition (Patient is nonverbal secondary to traumatic brain injury) Medications/Allergies Home Medications Medication Instructions Recorded Confirmed Last Taken Type Enema Disposable 118 ml [place] DAILY PRN 04/24/19 08/07/20 Unknown History Jevity 1.5 Jerry See Rx Instructions .ROUTE .COMPLEX 04/24/19 08/07/20 08/07/20 History acetaminophen 1,000 mg PO DAILY@0800 04/24/19 08/07/20 08/07/20 History acetaminophen 650 mg WY Q4H PRN 04/24/19 08/07/20 Unknown History aspirin 81 mg PO DAILY@0800 04/24/19 08/07/20 08/07/20 History baclofen 20 mg FEEDING TUBE TID@08,,20 04/24/19 08/07/20 08/07/20 History bisacodyl 10 mg W[place] DAILY PRN 04/24/19 08/07/20 Unknown History bisacodyl See Rx Instructions .ROUTE .COMPLEX 04/24/19 08/07/20 08/07/20 History hydrocodone-acetaminophen 15 ml FEEDING TUBE Q6H PRN 04/24/19 08/07/20 Unknown History lactulose 30 ml FEEDING TUBE TID@08,04/24/19 08/07/20 08/07/20 History loratadine 10 mg FEEDING TUBE DAILY@0800 04/24/19 08/07/20 08/07/20 History magnesium hydroxide [Milk of See Rx Instructions .ROUTE 04/24/19 08/07/20 Unk nown History Magnesia] .COMPLEX PRN metoclopramide HCl 10 mg FEEDING TUBE Q8H 04/24/19 08/07/20 08/07/20 History polyethylene glycol 3350 [Miralax] 17 g FEEDING TUBE DAILY@0800 04/24/1908/0708/07/20 History sennosides [senna] 17.2 mg FEEDING TUBE DAILY@0800 04/24/19 08/07/20 08/07/20 History oseltamivir [Tamiflu] 75 mg FEEDING TUBE DAILY 06/10/19 08/07/20 06/09/19 09:00 History magnesium citrate 300 ml FEEDING TUBE DAILY@0800 PRN 08/07/20 08/07/20 08/07/20 History pantoprazole [Protonix] 40 mg PO DAILY@0800 08/07/20 08/07/20 08/07/20 History simethicone 80 mg FEEDING TUBE TID@08,08/07/20 08/07/20 08/07/20 History Allergies Allergy/AdvReac Type Severity Reaction Status Date / Time No Known Allergies Allergy Verified 06/10/19 12:16 PFSH Acute PFSH: Medical History (Updated 08/07/20 @ 23:16 by Frank Berry MD) Chronic constipation Chronic kidney disease Chronic pain syndrome Complaint associated with gastric tube Constipation Dysphagia Leaking percutaneous endoscopic gastrostomy (PEG) tube Spastic quadriplegia TBI (traumatic brain injury) Surgical History Hx of tracheostomy S/P percutaneous endoscopic gastrostomy (PEG) tube placement Family History (Updated 08/07/20 @ 23:14 by Frank Berry MD) Other Family history non-contributory Social History Smoking and tobacco status: never smoked Housing: Care Home Current occupational status: disabled Vitals/I&O/Wt Last Vital Signs Temp 98.6 F 08/07/20 19:40 Pulse 126 H 08/07/20 20:33 Resp 17 08/07/20 20:33 BP 98/78 08/07/20 20:33 Pulse Ox 92 08/07/20 20:33 Weight last 48 hrs Weight 81.647 kg Physical Exam Narrative: EXAM NARRATIVE: Young male Nonverbal, bedbound Looks dehydrated Mild pallor Sinus tachycardia Tracheostomy scar eliud noted PEG tube without any leakage Abdominal surgical scar eliud noted Pressure ulcer of right foot noted on lateral side, patient keeps his legs crossed, spastic quadriplegia Bilateral breath sounds without adventitious rhonchi or crackles S1, S2 sinus tachycardia no murmur appreciated Blanchable lesion at sacral area Data : 08/07/20 20:29 08/07/20 20:29 A&P Assessment and plan (1) Acute upper GI bleed: Status: Acute (2) Sinus tachycardia: Status: Acute Additional A&P Information Acute upper GI bleed/melanotic stool Sinus tachycardia, blood pressure has been stable Getting 1 unit PRBC Macrocytic anemia We will check B12 and folic acid level He gets aspirin via PEG tube Hold p.o. medications Dr. 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 Full code DVT prophylaxis contraindicated would use SCDs Attestations Medical Necessity Statement*: Anticipating stay in the hospital cross more than 2 midnights will need EGD currently requiring 1 unit PRBC Time Spent in Patient Care: (>than 50% of time spent in counselling and/or direct pt care on unit) . 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
--- NOTE | 2020-08-07 23:09 | PC.NURSE ---
Patient arrived on med surg floor from ER via rtyrone. Transported by Cari. Patient resting in bed.
[2020-08-08] VITALS (9 sets, daily range): BP systolic 108–144; BP diastolic 63–98; PULSE 84–115; RESP 14–18; TEMP 36.5–37.3; O2SAT 92–97
[2020-08-08 00:08] LABS: Folate Level 10.4 ng/mL (4.5-32.2)
[2020-08-08 00:09] LABS: Vitamin B12 674 pg/mL (232-1245)
[2020-08-08 02:25] LABS: Basophils # 0.1 10^3/uL (0.0-0.1); Basophils % 0.8 %; Eosinophils # 0.2 10^3/uL (0.0-0.8); Eosinophils % 1.9 %; Hematocrit 26.7 % (42.0-52.0); Hemoglobin 8.7 g/dL (11.7-16.6); Lymphocytes # 3.9 10^3/uL (0.8-4.8); Mean Corpuscular HGB Conc 32.6 g/dL (30.0-36.0); Mean Corpuscular Hemoglobin 32.3 pg (28.0-34.0); Mean Corpuscular Volume 99.3 fL (80-94); Mean Platelet Volume 11.9 fL (7.4-10.4); Monocytes # 1.3 10^3/uL (0.2-0.9); Monocytes % 10.1 %; Neutrophils # 7.28 10^3/uL (1.8-7.7); Neutrophils % 56.8 %; Nucleated Red Blood Cells % 0 %; Platelet Count 340 10^3/cmm (130-400); Red Blood Count 2.69 10^6/uL (4.1-5.3); Red Cell Distribution Width 13.6 % (12.1-15.1); White Blood Count 12.8 10^3/uL (4.0-10.0)
[2020-08-08 02:45] LABS: Anion Gap 9.7 (5-19); Blood Urea Nitrogen 21 mg/dL (6-20); Calcium 8.1 mg/dL (8.5-10.5); Carbon Dioxide 28 mmol/L (22-29); Chloride 108 mmol/L (98-107); Glomerular Filtration Rate 196.6 mL/min (90-130); Glucose 105 mg/dL (65-115); Osmolality Calculated 297 mOsm/kg (285-295); Potassium 3.7 mmol/L (3.5-5.1); Sodium 142 mmol/L (136-145)
[2020-08-08] MEDS: sodium chloride 0.9% 1,000 ML 30 ML IV (03:52)
[2020-08-08 05:16] LABS: Glucose Point of Care 103 mg/dL (70-110)
[2020-08-08] MEDS: pantoprazole 40 mg SDV IVP ×2 (08:34→20:55)
[2020-08-08 12:14] LABS: Glucose Point of Care 96 mg/dL (70-110)
--- NOTE | 2020-08-08 12:20 | PC.CHAP ---
Pastoral Care Encounter/Spiritual Assessment Type of Contact [] Declined feather trimmer visit [] Patient/Family/Request visit [] Outpatient visit [] Follow-up visit [] Physician referral [] Code/Alert [x] Routine visit [] Staff referral [] Actively dying [] Patient sleeping [] Family support [] [] Out of room [] Palliative care [] [] Receiving care in room [x] Pre-surgical visit [] Trauma [] Long length of stay [] ICU visit [] Other: Relational/Emotional Strength [] Patient feels connected with others/family/visitors/staff [] Distress [] Loneliness/isolation [] Abandonment Spirituality of Patient [] Person of Jackeline [] Attends Bahai of their Jackeline [] Believes in Prayer [] Reads Bible or Baptist materials [] There are Spiritual issues to be addressed Farm Contractor Interventions [] Prayer [] Active listening [] Non-anxious presence [] Spiritual/emotional support [] Crisis/trauma care [] Spiritual counseling [] Bereavement support [] Provided bereavement packet [] Provided Bible/devotional materials [] Provided toy/stuffed animal, coloring book to patient or family member [] Provided Communion [] Anointing/Miranda [] Salvation [] Completed spiritual assessment [] Other: Impact on Illness or Injury [] Angry [] Fearful [] Anxious [] Often cries [] Exhaustion [] Unable to work [] Unable to attend sikh [] Unable to walk/stand [] Unable to read [] Unable to drive [] Unable to eat/drink [] Unable to sleep [] Unable to be with family [] Patient intubated [] Other: Summary Time spent with patient
[2020-08-08 14:43] LABS: Hemoglobin 8.7 g/dL (11.7-16.6)
--- NOTE | 2020-08-08 17:04 | PM.CONSULT ---
Providers/Reason For Consult Consulting Physican/Specialty*: General Surgery Dr. Watson Reason for Consult*: Myra Attending Physician: Christ Mcmahon Primary Care Provider: Abram Tellez Jr, MD History of Present Illness History of Present Illness Jefe Blackmon is a 29 year old male who is a [facility] resident secondary to traumatic brain injury and spastic quadriplegia who presents with 1 day history of black stools. Patient was noted to have a hemoglobin of 8 versus his hemoglobin last week which was 14. Patient's tube feeds have been going and he is on Protonix 40 mg twice daily. Since admission he has not had any evidence of further GI bleed. Patient is nonverbal. Review of Systems General: Reports: ROS unobtainable due to mental status Meds/Allergies Home Medications and Allergies Home Medications Medication Instructions Recorded Confirmed Last Taken Type Enema Disposable 118 ml [place] DAILY PRN 04/24/19 08/07/20 Unknown History Jevity 1.5 Jerry See Rx Instructions .ROUTE .COMPLEX 04/24/19 08/07/20 08/07/20 History acetaminophen 1,000 mg PO DAILY@0800 04/24/19 08/07/20 08/07/20 History acetaminophen 650 mg OR Q4H PRN 04/24/19 08/07/20 Unknown History aspirin 81 mg PO DAILY@0800 04/24/19 08/07/20 08/07/20 History baclofen 20 mg FEEDING TUBE TID@08,,04/24/19 08/07/20 08/07/20 History bisacodyl 10 mg OR DAILY PRN 04/24/19 08/07/20 Unknown History bisacodyl See Rx Instructions .ROUTE .COMPLEX 04/24/19 08/07/20 08/07/20 History hydrocodone-acetaminophen 15 ml FEEDING TUBE Q6H PRN 04/24/19 08/07/20 Unknown History lactulose 30 ml FEEDING TUBE TID@08,,04/24/19 08/07/20 08/07/20 History loratadine 10 mg FEEDING TUBE DAILY@0800 04/24/19 08/07/20 08/07/20 History magnesium hydroxide [Milk of See Rx Instructions .ROUTE 04/24/19 08/07/20 Unknown History Magnesia] .COMPLEX PRN metoclopramide HCl 10 mg FEEDING TUBE Q8H 04/24/19 08/07/20 08/07/20 History polyethylene glycol 3350 [Miralax] 17 g FEEDING TUBE DAILY@0800 04/24/19 08/07/20 08/07/20 History sennosides [senna] 17.2 mg FEEDING TUBE DAILY@0800 04/24/19 08/07/20 08/07/20 History oseltamivir [Tamiflu] 75 mg FEEDING TUBE DAILY 06/10/19 08/07/20 06/09/19 09:00 History magnesium citrate 300 ml FEEDING TUBE DAILY@0800 PRN 08/07/20 08/07/20 08/07/20 History pantoprazole [Protonix] 40 mg PO DAILY@0800 08/07/20 08/07/20 08/07/20 History simethicone 80 mg FEEDING TUBE TID@08,,20 08/07/20 08/07/20 08/07/20 History Allergies Allergy/AdvReac Type Severity Reaction Status Date / Time No Known Allergies Allergy Verified 06/10/19 12:16 Current Medications Current Medications Generic Name Dose Route Start Last Admin Trade Name Freq PRN Reason Stop Dose Admin Sodium Chloride 1,000 mls @ 30 mls/hr 08/08/20 04:00 08/08/20 03:52 Sodium Chloride 0.9% IV 30 mls/hr .Q24H DUYEN Administration Pantoprazole Sodium 40 mg 08/08/20 08:00 08/08/20 08:34 Pantoprazole 40 Mg Sdv IVP 40 mg Q12H DUYEN Administration PFSH Acute PFSH: Medical History (Updated 08/08/20 @ 17:05 by Reji Watson MD) Chronic constipation Chronic kidney disease Chronic pain syndrome Constipation Dysphagia Spastic quadriplegia TBI (traumatic brain injury) Surgical History Hx of tracheostomy S/P percutaneous endoscopic gastrostomy (PEG) tube placement Family History Other Family history non-contributory Social History Smoking and tobacco status: never smoked Housing: [facility] Current occupational status: disabled Vitals/I&O/Wt Last Vital Signs Temp 98.8 F 08/08/20 11:17 Pulse 90 08/08/20 11:17 Resp 18 08/08/20 11:17 BP 115/63 08/08/20 11:17 Pulse Ox 93 08/08/20 11:17 08/08/20 08/08/20 08/08/20 06:59 14:59 22:59 Intake Total 1350 / 1350 Balance 1350 / 1350 Weight last 48 hrs Weight 180 lb Physical Exam Narrative: EXAM NARRATIVE: HEENT: Normocephalic Eye: Sclera /conjunctiva normal Abdomen: Soft to palpation, PEG tube in the left upper quadrant Neurological: Awake, does not follow commands Skin: Intact, no lesions appreciated on gross exam A&P Assessment and plan (1) Acute upper GI bleed: 29-year-old male who [facility] with [facility] a jail. Patient's last 3 hemoglobins have stayed around 8. He most likely has a bleed from gastric irritation secondary to gastrostomy tube Discussed with the patient's mother about his status Restart tube feeds If his hemoglobin remains stable tomorrow then he can be discharged home on PPI twice daily But at this point since he is hemodynamically stable with no evidence of active GI bleed we will hold off on performing an EGD. 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
[2020-08-08 17:58] LABS: Glucose Point of Care 95 mg/dL (70-110)
--- NOTE | 2020-08-08 19:35 | PM.PN ---
Subjective Subjective: Interval history: Appears awake, but is nonverbal, not answering questions, following commands. Vitals/I&O/Wt Last Vital Signs Temp 97.7 F 08/08/20 16:00 Pulse 89 08/08/20 16:00 Resp 14 08/08/20 16:00 BP 118/81 08/08/20 16:00 Pulse Ox 97 08/08/20 16:00 08/08/20 08/08/20 08/08/20 06:59 14:59 22:59 Intake Total 1350 / 1350 Balance 1350 / 1350 Weight last 48 hrs Weight 81.647 kg Physical Exam Const: COMMON NORMALS: no acute distress GENERAL APPEARANCE: not cooperative ORIENTATION/CONSCIOUSNESS: Yes awake HENMT: COMMON NORMALS: oropharynx normal Neck/C-Spine: COMMON NORMALS: no JVD Resp: COMMON NORMALS: normal respiratory effort and clear to auscultation bilaterally AUSCULTATION: clear to auscultation bilaterally Cardio: COMMON NORMALS: no JVD, regular rhythm, S1 normal heart sound present, S2 normal heart sound present and No murmurs present (Cardio) RHYTHM: regular rhythm HEART SOUNDS: S1 normal heart sound present and S2 normal heart sound present GI: COMMON NORMALS: Normal to inspection, nondistended, normoactive bowel sounds present, Soft to palpation and non-tender PALPATION: Yes Soft to palpation Extremity: COMMON NORMALS: no joint enlargement and no pedal edema Neuro: OTHER: Spastic quadriplegic Skin: COMMON NORMALS: no rashes or lesions noted GENERAL SKIN EXAM: no rashes or lesions noted Data : 08/08/20 13:55 08/08/20 01:51 A&P Assessment and plan (1) Acute upper GI bleed: Appreciate surgery recommendations. Recheck hemoglobin appears to be stable 8.7. As discussed resume trial off tube feeds. Continue PPI. Reassess hemoglobin. Hold aspirin. Status: Acute (2) Sinus tachycardia: Resolved. 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 Coding Level of Care Code Acute [employer] Consultant for [facility] Jazmin Diagnoses Acute upper GI bleed K92.2 Sinus tachycardia R00.0
[2020-08-08 21:10] LABS: Glucose Point of Care 101 mg/dL (70-110)
[2020-08-09 03:27] VITALS: BP 110/63; PULSE 100; RESP 18; TEMP 36.4; O2SAT 94
[2020-08-09 06:35] LABS: Basophils # 0.1 10^3/uL (0.0-0.1); Basophils % 0.7 %; Eosinophils # 0.4 10^3/uL (0.0-0.8); Hematocrit 26.4 % (42.0-52.0); Hemoglobin 8.4 g/dL (11.7-16.6); Lymphocytes % 34.3 %; Mean Corpuscular HGB Conc 31.8 g/dL (30.0-36.0); Mean Corpuscular Hemoglobin 32.7 pg (28.0-34.0); Mean Corpuscular Volume 102.7 fL (80-94); Mean Platelet Volume 12.9 fL (7.4-10.4); Monocytes # 1.2 10^3/uL (0.2-0.9); Monocytes % 10.2 %; Neutrophils # 5.98 10^3/uL (1.8-7.7); Neutrophils % 51.5 %; Nucleated Red Blood Cells % 0 %; Platelet Count 370 10^3/cmm (130-400); Red Blood Count 2.57 10^6/uL (4.1-5.3); Red Cell Distribution Width 14.5 % (12.1-15.1); White Blood Count 11.6 10^3/uL (4.0-10.0)
[2020-08-09 06:45] LABS: Anion Gap 13.2 (5-19); Blood Urea Nitrogen 15 mg/dL (6-20); Calcium 8.2 mg/dL (8.5-10.5); Carbon Dioxide 23 mmol/L (22-29); Chloride 111 mmol/L (98-107); Glomerular Filtration Rate 254.3 mL/min (90-130); Glucose 94 mg/dL (65-115); Osmolality Calculated 297 mOsm/kg (285-295); Potassium 4.2 mmol/L (3.5-5.1); Sodium 143 mmol/L (136-145)
[2020-08-09 07:06] LABS: Glucose Point of Care 103 mg/dL (70-110)
--- NOTE | 2020-08-09 07:55 | P.PN_ITS ---
Subjective Subjective: Interval history: Patient did not have any bowel movements last night, no bleeding per rectum or melena Vitals/I&O/Wt Last Vital Signs Temp 97.6 F 08/09/20 03:27 Pulse 100 08/09/20 03:27 Resp 18 08/09/20 03:27 BP 110/63 08/09/20 03:27 Pulse Ox 94 08/09/20 03:27 Weight last 48 hrs Weight 180 lb Physical Exam Narrative: EXAM NARRATIVE: Abdomen: Soft, PEG tube in place Data : 08/09/20 05:55 08/09/20 05:55 A&P Assessment and plan (1) Acute upper GI bleed: 29-year-old male who presents with melena from a snf. Patient's last 3 hemoglobins have stayed around 8. 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
[2020-08-09 08:00] VITALS: BP 121/69; PULSE 74; RESP 18; TEMP 36.7; O2SAT 97
[2020-08-09] MEDS: cyanocobalamin 1,000 mcg Tablet 1000 MCG PEG-TUBE (08:30)
[2020-08-09] MEDS: baclofen 10 mg Tablet 20 MG PEG-TUBE ×2 (08:30→14:21)
[2020-08-09] MEDS: pantoprazole 40 mg SDV IVP (08:30)
[2020-08-09] MEDS: sennosides 8.6 mg Tablet 17.2 MG PEG-TUBE (08:39)
--- NOTE | 2020-08-09 10:55 | PC.NUTR ---
Tube feeding assessment: Recommend to clarify home tube feeding again with [facility]. Current orders for Jevity 1.2, with goal of 80 ml/hr from 6 am to midnight. Hold feedings from midnight to 6 am. 80 ml/hr X 18 hours to provide 1728 kcal, 80 g protein, 1162 ml H2O. Question if [facility]pc may actually be providing Jevity 1.5 to better meet estimated needs. Recommend to clarify and adjust as needed. Also recommend to consider addition of H2O flushes to better meet fluid needs. See nutrition assessment for further details.
[2020-08-09 10:56] LABS: Glucose Point of Care 95 mg/dL (70-110)
[2020-08-09 12:00] VITALS: BP 100/58; PULSE 68; RESP 20; TEMP 36.4; O2SAT 96
--- NOTE | 2020-08-09 12:03 | PM.DCS ---
Discharge Providers Date of Admission: 08/07/20 23:11 Date of Discharge: August 09, 2020 Attending Provider at Admission: Frank Berry MD Attending Provider at Discharge: Christ Mcmahon Primary Care Provider: Abram Tellez Jr, MD Diagnoses at Discharge Discharge Diagnosis (1) Acute upper GI bleed: Status: Acute Reason for Visit Reason for Visit: BLACK TARY STOOL Hospital Course Hospital Course At baseline, receiving feedings via PEG tube with history of TBI, spastic quadriplegia, nonverbal, bedbound was noted to have decreasing hemoglobin down from 14 to as low as 8 on presentation, with dark/melanotic stools. He is noted to be taking aspirin at group home. Protonix daily. Noted sinus tachycardia on presentation. Received 1 L fluid bolus on admission. Received 1 unit PRBC transfusion. Aspirin was held. Was treated with 40 mg IV twice daily Protonix. Hemoglobin responded with rise to 8.7, and remained there on reassessment later in the evening, with hemoglobin at 8.4 this morning. No additional melanotic stools noted. On reassessment by surgery given stabilization of blood counts additional endoscopic evaluation is deferred at this time. He is cleared for discharge back to group home. Will request to DC aspirin at this time at least for now. I am not entirely sure why he takes this, I do not see a clear indication as per the problem list at the group home. This could be prophylactic. We will also continue PPI twice daily. As noted by surgery, consideration is also given to irritation/ulceration from PEG tube balloon. Please reassess blood counts in 2-3 days. We have also asked that he follow-up with surgery in office. Surgery discussed plans with his mother. This is discussed with patient's public guardian as well. Physical Exam Const: COMMON NORMALS: no acute distress GENERAL APPEARANCE: not cooperative ORIENTATION/CONSCIOUSNESS: Yes awake HENMT: COMMON NORMALS: oropharynx normal Neck/C-Spine: COMMON NORMALS: no JVD Resp: COMMON NORMALS: normal respiratory effort and clear to auscultation bilaterally AUSCULTATION: clear to auscultation bilaterally Cardio: COMMON NORMALS: no JVD, regular rhythm, S1 normal heart sound present, S2 normal heart sound present and No murmurs present (Cardio) RHYTHM: regular rhythm HEART SOUNDS: S1 normal heart sound present and S2 normal heart sound present GI: COMMON NORMALS: Normal to inspection, nondistended, normoactive bowel sounds present, Soft to palpation and non-tender PALPATION: Yes Soft to palpation OTHER: PEG Extremity: COMMON NORMALS: no joint enlargement and no pedal edema Neuro: OTHER: Spastic quadriplegic Skin: COMMON NORMALS: no rashes or lesions noted GENERAL SKIN EXAM: no rashes or lesions noted Discharge Data Data Completed and Pending: Pending at discharge Category Date Time Status Basic Metabolic P vy AM LABS Lab 08/10/20 04:00 Ordered Basic Metabolic P vy AM LABS Lab 08/11/20 04:00 Ordered Complete Blood Co unt w/Auto AM LABS Lab 08/10/20 04:00 Ordered Complete Blood Co unt w/Auto AM LABS Lab 08/11/20 04:00 Ordered Labs from last 24 hours 08/09/20 08/09/20 08/09/20 10:28 06:52 05:55 WBC RBC Hgb Hct MCV MCH MCHC RDW Plt Count MPV Neut % (Auto) Lymph % (Auto) [place] % (Auto) Eos % (Auto) Baso % (Auto) Neut # (Auto) Lymph # (Auto) [place] # (Auto) Eos # (Auto) Baso # (Auto) Nucleated RBC % (a uto) Nucleated RBCs # Sodium 143 Potassium 4.2 Chloride 111 H Carbon Dioxide 23 Anion Gap 13.2 BUN 15 Creatinine 0.4 L GFR Calculation 254.3 H Glucose 94 POC Glucose 95 103 Calculated Osmolal ity 297 H Calcium 8.2 L 08/09/20 08/08/20 08/08/20 05:55 20:41 17:26 WBC 11.6 H RBC 2.57 L Hgb 8.4 L Hct 26.4 L MCV 102.7 H MCH 32.7 MCHC 31.8 RDW 14.5 Plt Count 370 MPV 12.9 H Neut % (Auto) 51.5 Lymph % (Auto) 34.3 [place] % (Auto) 10.2 Eos % (Auto) 3.0 Baso % (Auto) 0.7 Neut # (Auto) 5.98 Lymph # (Auto) 4.0 [place] # (Auto) 1.2 H Eos # (Auto) 0.4 Baso # (Auto) 0.1 Nucleated RBC % (a uto) 0 Nucleated RBCs # 0.0 Sodium Potassium Chloride Carbon Dioxide Anion Gap BUN Creatinine GFR Calculation Glucose POC Glucose 101 95 Calculated Osmolal ity Calcium 08/08/20 08/08/20 13:55 11:15 WBC RBC Hgb 8.7 L Hct MCV MCH MCHC RDW Plt Count MPV Neut % (Auto) Lymph % (Auto) [place] % (Auto) Eos % (Auto) Baso % (Auto) Neut # (Auto) Lymph # (Auto) [place] # (Auto) Eos # (Auto) Baso # (Auto) Nucleated RBC % (a uto) Nucleated RBCs # Sodium Potassium Chloride Carbon Dioxide Anion Gap BUN Creatinine GFR Calculation Glucose POC Glucose 96 Calculated Osmolal ity Calcium Vitals: Last Vital Signs Temp 98.1 F 08/09/20 08:00 Pulse 74 08/09/20 08:00 Resp 18 08/09/20 08:00 BP 121/69 08/09/20 08:00 Pulse Ox 97 08/09/20 08:00 Discharge Plan Discharge Patient Disposition: Xfer SNF Condition: Stable Prescriptions: Continued sennosides [senna] 8.6 mg Tablet 17.2 mg feeding tube DAILY@0800 RF: 0 acetaminophen 650 mg Suppository 650 mg [place] Q4H PRN (Reason: Pain) RF: 0 polyethylene glycol 3350 [Miralax] 17 gram Powder In Packet 17 g feeding tube DAILY@0800 RF: 0 metoclopramide HCl 5 mg/5 mL Solution 10 mg feeding tube Q8H RF: 0 acetaminophen 500 mg Tablet 1,000 mg PO DAILY@0800 RF: 0 magnesium hydroxide [Milk of Magnesia] 400 mg/5 mL Suspension See Rx Instructions .ROUTE .COMPLEX PRN (Reason: Constipation) RF: 0 baclofen 10 mg Tablet 20 mg feeding tube TID@08,, RF: 0 bisacodyl 10 mg Suppository 10 mg [place] DAILY PRN (Reason: Constipation) RF: 0 bisacodyl 10 mg Suppository See Rx Instructions .ROUTE .COMPLEX RF: 0 Enema Disposable 19-7 gram/118 mL Enema 118 ml FL DAILY PRN (Reason: Constipation) RF: 0 loratadine 10 mg Tablet 10 mg feeding tube DAILY@0800 RF: 0 hydrocodone-acetaminophen 7.5-325 mg/15 mL Solution 15 ml feeding tube Q6H PRN (Reason: Pain) RF: 0 lactulose 10 gram/15 mL Solution 30 ml feeding tube TID@,, RF: 0 Jevity 1.5 Jerry 0.06 gram-1.5 kcal/mL Liquid See Rx Instructions .ROUTE .COMPLEX RF: 0 simethicone 80 mg Tablet,Chewable 80 mg feeding tube TID@,, RF: 0 magnesium citrate Solution 300 ml feeding tube DAILY@0800 PRN (Reason: constipation) RF: 0 oseltamivir [Tamiflu] 6 mg/mL Suspension For Reconstitution 75 mg feeding tube DAILY RF: 0 Changed Protonix [address] For Susp In Packet 40 mg PO BID Qty: 0 RF: 0 Discontinued aspirin 81 mg Tablet,Chewable 81 mg PO DAILY@0800 RF: 0 Discharge Orders: Discharge Order (Routine); Ordered 08/09/20 Ordered By: Christ Mcmahon Referrals: Reji Watson MD [Physician] - 1 week Abram Tellez Jr, MD [Primary Care Provider] - 4-7 days (GIB, anemia) Discharge Diet: Resume prior tube feeds Discharge Activity: Resume usual activity Patient Instructions: Opioid Safety Activity Restrictions/Additional Instructions: Please reassess blood counts in 2-3 days. Discharge Attestations Time Spent in Discharge Care*: greater than 30 min Quality Metrics Clinical Quality Measures During this hospital stay, did patient experience: None Coding Level of Care Code Acute Chg [facility] note Exam Comprehensive Diagnoses Acute upper GI bleed K92.2
--- NOTE | 2020-08-09 14:16 | PC.NURSE ---
Called report to Licha ARVIZU at [facility].
[2020-08-09 16:55] VITALS: BP 100/58; PULSE 68; RESP 20; TEMP 36.4; O2SAT 96
== END 2020-08-09 16:56 | disposition skilled nursing facility (03) | DRG 377 ==
LOC: ER 21:56 → MEDSURG 08-08 07:41
PROVIDERS: Admitting Provider Internal Medicine; Emergency Provider Emergency Medicine; PCP Family Medicine; Visit Provider Internal Medicine
DX: K92.2 Gastrointestinal hemorrhage, unspecified (principal); G82.50 Quadriplegia, unspecified; D62 Acute posthemorrhagic anemia; R00.0 Tachycardia, unspecified; N18.9 Chronic kidney disease, unspecified; G89.4 Chronic pain syndrome; Z87.820 Personal history of traumatic brain injury; Z93.1 Gastrostomy status; Z79.891 Long term (current) use of opiate analgesic; Z74.01 Bed confinement status; Z79.82 Long term (current) use of aspirin
CPT/HCPCS: 36415; 36416; 36430; 80048; 80053; 82607; 82746; 82962; 85018; 85025; 85610; 86850; 86900; 86920; 96361; 96374; 99285; C9113; J7030; P9016

== ENCOUNTER 2020-09-12 09:46 | Day surgery (SDC) | payer MEDICAID, SELFPAY ==
--- NOTE | 2020-09-12 10:41 | P.ANESASSM_ITS ---
Pre-Anesthetic Assessment Pre-Anesthetic Assessment: Height/Weight: Height 1.8 m Preop Diagnosis: upper gi symptoms Proposed Procedure: Operation Date: 09/12/20 11:30 Proposed Procedures p EGD 27530 K92.1(Not Applicable) - Reji Watson MD Was Beta Montez taken within 24 hours: N/A Was Clonidine taken within 24 hours: N/A Social: Social History: No alcohol and No tobacco Exam: Pre-Anes Outpt Exam: alert, oriented x 3, clear to auscultation bilaterally and regular rate & rhythm Airway: Submandibular: WNL Cervical ROM: WNL MP: 2 Additional comments: poor CV/HEM: CV/HEM: Anemia GI: GI: GERD Comments: constipation Musc/skel: Comments: quadraplegia, TBI, wheelchair-bound Anesthetic Plan: Anesthesia: MAC Risk of > 500 ml blood loss (7ml/kg in children): No PFSH Anesthesia PFSH: Medical History Chronic constipation Chronic kidney disease Chronic pain syndrome Constipation Dysphagia Spastic quadriplegia TBI (traumatic brain injury) Surgical History Hx of tracheostomy S/P percutaneous endoscopic gastrostomy (PEG) tube placement Family History Other Family history non-contributory Social History Smoking and tobacco status: never smoked Housing: [address] Current occupational status: disabled Data Anesthesia Cardiac Studies: No Data to Display
[2020-09-12 11:03] VITALS: BP 106/71; PULSE 80; RESP 18; TEMP 36.1; O2SAT 96; BMI 22.0
[2020-09-12] MEDS: sodium chloride 0.9% 1,000 ML 30 ML IV (11:22)
--- NOTE | 2020-09-12 12:16 | W.PM.OPSUD ---
Surgery/Procedure H&P Update DATE OF PROCEDURE: September 12, 2020 DATE H&P PERFORMED: 08/22/20 H&P UPDATE INFORMATION: I have reviewed H&P completed within last 30 days, I have examined patient prior to procedure and No changes to prior documentation PREOP DIAGNOSIS: upper gi symptoms PLANNED PROCEDURE: Operation Date: 09/12/20 11:30 Proposed Procedures p EGD 03123 K92.1(Not Applicable) - Reji Watson MD
[2020-09-12 13:29] VITALS: BP 105/57; PULSE 87; RESP 20; TEMP 36.2; O2SAT 92
[2020-09-12 13:39] VITALS: BP 113/63; PULSE 84; RESP 18; TEMP 36.7; O2SAT 95
--- NOTE | 2020-09-12 13:45 | PC.NURSE ---
REPORT GIVEN TO DUY AT [facility]
--- NOTE | 2020-09-12 13:51 | ANE.PACU2 ---
Inpatient post-anesthesia follow up: Airway intact: Yes Vital signs: Temperature 98.1 F Pulse Rate 84 Respiratory Rate 18 Blood Pressure 113/63 Pulse Oximetry 95 Oxygen Delivery Me thod Room Air Oxygen Flow Rate Fraction of Inspir ed Oxygen Hydration adequate: Yes Nausea and vomiting: No Pain level: 1 Mental status: Baseline
== END 2020-09-12 14:00 | disposition home or self-care (01) ==
PROVIDERS: PCP Family Medicine; Visit Provider Surgery
PROC: 0DJ08ZZ Inspection of Upper Intestinal Tract, Via Natural or Artificial Opening Endoscopic (ICD-10-PCS; CPT 43235; principal; 2020-09-12 11:30)
DX: K92.1 Melena (principal); D64.9 Anemia, unspecified; N18.9 Chronic kidney disease, unspecified; Z93.1 Gastrostomy status; Z99.3 Dependence on wheelchair
CPT/HCPCS: 43235; 96360; 96361; J7030

== ENCOUNTER 2021-03-18 01:15 | Emergency (ER) | payer MEDICAID, SELFPAY ==
[2021-03-18 01:18] VITALS: PULSE 121; RESP 18; TEMP 37.4; O2SAT 94; BMI 15.3
--- NOTE | 2021-03-18 01:27 | CTR_ITS ---
PROCEDURE INFORMATION: Exam: CT Abdomen And Pelvis With Contrast Exam date and time: 03/18/2021 1:27 AM Age: 30 years old Clinical indication: Abdominal pain; Generalized TECHNIQUE: Imaging protocol: Computed tomography of the abdomen and pelvis with contrast. Radiation optimization: All CT scans at this facility use at least one of these dose optimization techniques: automated exposure control; mA and/or kV adjustment per patient size (includes targeted exams where dose is matched to clinical indication); or iterative reconstruction. Contrast material: OMNI 300; Contrast volume: 95 ml; Contrast route: INTRAVENOUS (IV); COMPARISON: CT abdomen pelvis w con* [id number] 08/04/2020 10:04 AM RADIATION DOSE METRICS: Total DLP (mGy-cm): 1602.37 FINDINGS: Tubes, catheters and devices: Percutaneous gastrostomy tube present. The tip of the tube, with balloon inflated, is in the mid body of the stomach. Lungs: Mild probable atelectasis in the lower lungs. Minimal right pleural fluid versus pleural thickening. Liver: Unremarkable. Gallbladder and bile ducts: No visible gallstones by CT. No biliary tree dilation. Pancreas: Unremarkable. Spleen: Small amounts of splenic tissue in the left upper quadrant, similar to the prior exam. This could represent accessory splenic tissue if there has been prior splenectomy, versus sequela of sickle cell disease. Adrenal glands: Unremarkable. Kidneys and ureters: Very small right lower pole intrarenal calculus, unchanged. No hydronephrosis of either kidney. No visible ureteral calculus. 6 mm probable cyst in the upper lateral left kidney. This is unchanged, but too small to accurately characterize by CT. The kidneys otherwise enhance homogeneously. No perinephric fluid. Stomach and bowel: Prominent amount of stool in the rectum and distal sigmoid colon. The rectum appears somewhat distended, transverse diameter up to 7 cm. No definite perirectal inflammatory changes or fluid. Please correlate clinically for possible fecal impaction. Most of the rest of the colon is gas filled and upper range of normal in size. No significant small bowel distention. Appendix: The appendix is visualized and appears normal. Intraperitoneal space: No free intraperitoneal air, or ascites. Vasculature: IVC filter again present, similar to prior exam. No evidence for abdominal aortic aneurysm. Lymph nodes: No retroperitoneal adenopathy. Urinary bladder: Possibly some mild diffuse urinary bladder wall thickening. Evaluation is somewhat limited, as the bladder is not well distended. While nonspecific, this could indicate evidence for cystitis. Please correlate clinically. Reproductive: Essentially unremarkable for age. Bones/joints: No significant acute finding. Soft tissues: No significant acute finding. CT/CT abdomen pelvis w con* [id number] IMPRESSION: 1. Prominent amount of stool in the rectum and distal sigmoid colon, with some rectal distention. See additional details above. Please correlate clinically for possible fecal impaction. 2. Normal appendix. 3. No free air or small bowel distention. 4. Possible mild urinary bladder wall thickening, see above. 5. Very small right intrarenal calculus. No hydronephrosis of either kidney. No visible ureteral calculus. 6. Mild probable atelectasis in the lower lungs. Minimal right pleural fluid versus pleural thickening. 7. Other findings discussed above. COMMENTS: 1. Consistent with the [employer]'s Incidental Findings Committee white paper (J Am Neli Radiol 2018): Any incidental renal lesion less than 1 cm or classified as too small to characterize, or any incidental cystic renal lesion characterized as simple-appearing, is likely benign. No follow-up imaging is recommended for these lesions per consensus recommendations based on imaging criteria. 2. For patients with an IVC filter, recommend assessment for a management plan for the patient's IVC filter. If there is no established management plan, recommend referral to an interventional clinician on a nonemergent basis for evaluation.
[2021-03-18] MEDS: sodium chloride 0.9% 1,000 ML 999 ML IV (01:30)
[2021-03-18 02:30] VITALS: BP 133/77; PULSE 117; RESP 18; O2SAT 97
[2021-03-18 02:31] LABS: Basophils # 0.1 10^3/uL (0.0-0.1); Basophils % 0.5 %; Eosinophils % 0.1 %; Hematocrit 49.6 % (42.0-52.0); Hemoglobin 16.1 g/dL (11.7-16.6); Lymphocytes # 2.6 10^3/uL (0.8-4.8); Lymphocytes % 12.3 %; Mean Corpuscular HGB Conc 32.5 g/dL (30.0-36.0); Mean Corpuscular Hemoglobin 31.6 pg (28.0-34.0); Mean Corpuscular Volume 97.3 fl (80-94); Mean Platelet Volume 11.8 fL (7.4-10.4); Monocytes # 1.9 10^3/uL (0.2-0.9); Monocytes % 8.9 %; Neutrophils # 16.64 10^3/uL (1.8-7.7); Neutrophils % 77.9 %; Nucleated Red Blood Cells % 0 %; Platelet Count 411 10^3/cmm (130-400); Red Cell Distribution Width 13.3 % (12.1-15.1); White Blood Count 21.4 10^3/uL (4.0-10.0)
[2021-03-18 02:51] LABS: Alanine Aminotransferase 17 U/L (0-41); Albumin Level 4.4 g/dL (3.5-5.2); Alkaline Phosphatase 85 IU/L (40-130); Aspartate Amino Transferase 16 U/L (0-40); Blood Urea Nitrogen 16 mg/dL (6-20); C Reactive Protein 5.5 mg/L (0.0-4.9); Calcium 8.8 mg/dL (8.5-10.5); Carbon Dioxide 23 mmol/L (22-29); Chloride 104 mmol/L (98-107); Globulin 2.9 g/dL (1.3-4.6); Glucose 104 mg/dL (65-115); Lipase 34 U/L (13-60); Osmolality Calculated 293 mOsm/kg (285-295); Sodium 141 mmol/L (136-145); Total Bilirubin 0.4 mg/dL (0.15-1.2); Total Protein 7.3 g/dL (6.6-8.7)
[2021-03-18 03:01] LABS: INR 0.96 (0.8-1.2)
[2021-03-18 03:02] LABS: Partial Thromboplastin Time 26.9 SECONDS (23.9-36.7)
[2021-03-18] MEDS: iohexol 300 mg/mL 100 mL Btl IV (03:21)
[2021-03-18 03:28] LABS: Slide Review Slide Review Perform
[2021-03-18 03:29] VITALS: BP 131/68; PULSE 112; RESP 18; O2SAT 97
[2021-03-18 03:29] LABS: Anion Gap 18.4 (5-19); Potassium 4.4 mmol/L (3.5-5.1)
[2021-03-18] MEDS: morphine 4 mg/mL SDV 1 mL IVP (04:08)
[2021-03-18] MEDS: ondansetron 2 mg/ML SDV 2 mL 4 MG IVP (04:08)
--- NOTE | 2021-03-18 04:08 | ED_ITS ---
HPI - GI Bleed General: Chief complaint: GI Bleed Stated complaint: N/V Time Seen by Provider: 03/18/21 01:26 History of Present Illness: HPI Narrative: 30-year-old male status post traumatic brain injury. He lives in a custodial he is nonverbal. He presen ts with coffee-ground type drainage from his PEG tube, vomiting, and giving the appearance he is in pain. MD complaint: coffee ground emesis Onset (ago): hour(s) Pain Consistency: other Relieving factors: none Exacerbating factors: none Associated symptoms: Reports abdominal pain and vomiting; Denies other bleeding or rash Review of Systems General: Reports: ROS unobtainable due to medical condition Card: Denies: irregular heart rhythm GI: Reports: abdominal pain and vomiting Skin/Breast: Denies: rash PFSH ED PFSH: Medical History (Updated 03/18/21 @ 05:26 by Taz Garland DO) Chronic constipation Chronic kidney disease Chronic pain syndrome Constipation Dysphagia Spastic quadriplegia TBI (traumatic brain injury) Surgical History (System 09/21/20 @ 12:34 by Kinjal Fields) H/O esophagogastroduodenoscopy (09/12/20) Hx of tracheostomy S/P percutaneous endoscopic gastrostomy (PEG) tube placement Family History Other Family history non-contributory Social History (System 09/21/20 @ 12:34 by Kinjal Fields) Smoking and tobacco status: never smoked Housing: [facility] Current occupational status: disabled Physical Exam Const: GENERAL APPEARANCE: ill appearing and frail appearing Eye: COMMON NORMALS: Equal, round and reactive pupils present PUPIL: Yes Equal, round and reactive pupils present Chest: COMMONS NORMALS: normal inspection of the chest Resp: COMMON NORMALS: normal respiratory effort, No use of accessory muscles and clear to auscultation bilaterally AUSCULTATION: clear to auscultation bilaterally Cardio: COMMON NORMALS: regular rhythm RATE: tachycardic RHYTHM: regular rhythm GI: INSPECTION: Yes abdominal distension PALPATION: Yes Firmness to palpation present (GI) and Yes Tenderness to palpation present (GI) Extremity: COMMON NORMALS: no pedal edema Course Vital Signs: Vital signs: Vital Signs Temperature 99.3 F 03/18/21 01:18 Pulse Rate 121 H 03/18/21 01:18 Respiratory Rate 18 03/18/21 01:18 Pulse Oximetry 94 03/18/21 01:18 MDM - GI Bleed MDM Narrative: Medical decision making narrative: Patient mildly tachycardic at 120. Blood pressure is elevated 154/86. Oxygen saturation is 92 to 95% on room air. His white blood cell count is 21, but without significant left shift. Other laboratory is benign. CT is pending. CT shows rectal distention with 7 cm of wet. There is what appears to be possible fecal impaction. Rectal exam performed, with no hard stool felt. He will be discharged after administration of laxative. He does have some bowel distention with gas that is significant proximal to the distended rectum. Lab Data: Labs: Lab Results 03/18/21 03/18/21 03/18/21 02:19 02:19 02:38 WBC 21.4 10^3/uL H 10 ^3/uL (4.0-10.0) RBC 5.10 10^6/uL 10^6 /uL (4.1-5.3) Hgb 16.1 g/dL g/dL (11.7-16.6) Hct 49.6 % % (42.0-52.0) MCV 97.3 fl H fl (80-94) MCH 31.6 pg pg (28.0-34.0) MCHC 32.5 g/dL g/dL (30.0-36.0) RDW 13.3 % % (12.1-15.1) Plt Count 411 10^3/cmm H 10 ^3/cmm (130-400) MPV 11.8 fL H fL (7.4-10.4) Neut % (Auto) 77.9 % % Lymph % (Auto) 12.3 % % [place] % (Auto) 8.9 % % Eos % (Auto) 0.1 % % Baso % (Auto) 0.5 % % Neut # (Auto) 16.64 10^3/uL H 1 0^3/uL (1.8-7.7) Lymph # (Auto) 2.6 10^3/uL 10^3/ uL (0.8-4.8) [place] # (Auto) 1.9 10^3/uL H 10^ 3/uL (0.2-0.9) Eos # (Auto) 0.0 10^3/uL 10^3/ uL (0.0-0.8) Baso # (Auto) 0.1 10^3/uL 10^3/ uL (0.0-0.1) Nucleated RBC % (a uto) 0 % % Nucleated RBCs # 0.0 /100WBC /100W BC PT 13.10 SECONDS SEC ONDS (12.1-14.9) INR 0.96 (0.8-1.2) APTT 26.9 SECONDS SECO NDS (23.9-36.7) Sodium 141 mmol/L mmol/L (136-145) Potassium 4.4 mmol/L mmol/L (3.5-5.1) Chloride 104 mmol/L mmol/L (98-107) Carbon Dioxide 23 mmol/L mmol/L (22-29) Anion Gap 18.4 (5-19) BUN 16 mg/dL mg/dL (6-20) Creatinine 0.3 mg/dL L mg/dL (0.7-1.2) GFR Calculation 352.0 mL/min H mL /min (90-130) Glucose 104 mg/dL mg/dL (65-115) Calculated Osmolal ity 293 mOsm/kg mOsm/ kg (285-295) Lactate Calcium 8.8 mg/dL mg/dL (8.5-10.5) Total Bilirubin 0.4 mg/dL mg/dL (0.15-1.2) AST 16 U/L U/L (0-40) ALT 17 U/L U/L (0-41) Alkaline Phosphata se 85 IU/L IU/L (40-130) C-Reactive Protein 5.5 mg/L H mg/L (0.0-4.9) Total Protein 7.3 g/dL g/dL (6.6-8.7) Albumin 4.4 g/dL g/dL (3.5-5.2) Globulin 2.9 g/dL g/dL (1.3-4.6) Lipase 34 U/L U/L (13-60) Blood Type Rho(D) Type Antibody Screen 3 03/18/21 03/18/21 02:38 02:38 WBC RBC Hgb Hct MCV MCH MCHC RDW Plt Count MPV Neut % (Auto) Lymph % (Auto) [place] % (Auto) Eos % (Auto) Baso % (Auto) Neut # (Auto) Lymph # (Auto) [place] # (Auto) Eos # (Auto) Baso # (Auto) Nucleated RBC % (a uto) Nucleated RBCs # PT INR APTT Sodium Potassium Chloride Carbon Dioxide Anion Gap BUN Creatinine GFR Calculation Glucose Calculated Osmolal ity Lactate 1.0 mmol/L mmol/L (0.5-2.2) Calcium Total Bilirubin AST ALT Alkaline Phosphata se C-Reactive Protein Total Protein Albumin Globulin Lipase Blood Type O Positive Rho(D) Type Positive Antibody Screen Negative Discharge Plan Discharge Patient Disposition: Home Clinical Impression: Chronic constipation, Fecal impaction in rectum Condition: Stable Prescriptions: No Action sennosides [senna] 8.6 mg Tablet 17.2 mg feeding tube DAILY@0800 RF: 0 acetaminophen 650 mg Suppository 650 mg [place] Q4H PRN (Reason: Pain) RF: 0 polyethylene glycol 3350 [Miralax] 17 gram Powder In Packet 17 g feeding tube DAILY@0800 RF: 0 metoclopramide HCl 5 mg/5 mL Solution 10 mg feeding tube Q8H RF: 0 acetaminophen 500 mg Tablet 1,000 mg PO DAILY@0800 RF: 0 magnesium hydroxide [Milk of Magnesia] 400 mg/5 mL Suspension 30 ml feeding tube DAILY PRN (Reason: Constipation) RF: 0 baclofen 10 mg Tablet 20 mg feeding tube TID@08,14,20 RF: 0 bisacodyl 10 mg Suppository 10 mg [place] DAILY PRN (Reason: Constipation) RF: 0 bisacodyl 10 mg Suppository See Rx Instructions .ROUTE .COMPLEX RF: 0 Enema Disposable 19-7 gram/118 mL Enema 118 ml [place] DAILY PRN (Reason: Constipation) RF: 0 loratadine 10 mg Tablet 10 mg feeding tube DAILY@0800 RF: 0 hydrocodone-acetaminophen 7.5-325 mg/15 mL Solution 15 ml feeding tube Q6H PRN (Reason: Pain) RF: 0 lactulose 10 gram/15 mL Solution 30 ml feeding tube TID@08,14,20 RF: 0 Jevity 1.5 Jerry 0.06 gram-1.5 kcal/mL Liquid See Rx Instructions .ROUTE .COMPLEX RF: 0 simethicone 80 mg Tablet,Chewable 80 mg feeding tube TID@08,14,20 RF: 0 magnesium citrate [Citrate of Magnesia] Solution 300 ml feeding tube DAILY@0800 PRN (Reason: constipation) RF: 0 pantoprazole [Protonix] [address] For Susp In Packet 40 mg PO BID Qty: 0 RF: 0 Discharge Orders: Discharge ED (Routine); Ordered 03/18/21 Ordered By: Taz Garland Referrals: Abram Tellez Jr, MD [Primary Care Provider] - 1-3 days Activity Restrictions/Additional Instructions: Check pulse ox twice daily for the next 2 days to ensure oxygen levels staying appropriate. Return for fever greater than 100, repeated episodes of bleeding with stool, vomiting, shortness of breath, any other concerning symptoms. 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
[2021-03-18 04:30] VITALS: BP 128/78; PULSE 119; RESP 18; O2SAT 95
[2021-03-18 05:38] LABS: Add Urine Microscopic? NO; Charge for UA Resulting for Rev
[2021-03-18 05:41] VITALS: BP 130/60; PULSE 133; RESP 15; O2SAT 95
[2021-03-18 05:51] LABS: Bilirubin Urine Neg (Negative); Blood Urine Neg (Negative); Glucose Urine UA Norm (Normal); Ketones Urine Negative (Negative); Nitrate Urine Negative (Negative); Protein Urine Neg (Negative); Urine Appearance Clear (CLEAR); Urine Color Yellow (Yellow); pH Urine 9 (5-7)
[2021-03-18 05:52] LABS: Leukocyte Esterase Urine Negative (Negative); Sulfosalicylic Acid Urine Positive (Negative); Urobilinogen Urine Norm (Negative)
[2021-03-18] MEDS: lactulose oral liq 20 gm/30 mL UDC PO (07:09)
[2021-03-18] MEDS: magnesium hydroxide 30 mL UDC PO (07:09)
[2021-03-18] MEDS: mineral oil 30 mL UDC PO (07:09)
--- NOTE | 2021-03-18 07:34 | PC.NURSE ---
Report called to [facility], given to charge rn.
== END 2021-03-18 07:37 | disposition home or self-care (01) ==
PROVIDERS: Emergency Provider Emergency Medicine; PCP Family Medicine
DX: K59.09 Other constipation (principal); K56.41 Fecal impaction; G82.50 Quadriplegia, unspecified; Z87.820 Personal history of traumatic brain injury
CPT/HCPCS: 74177; 80053; 81003; 83605; 83690; 85025; 85610; 85730; 86140; 86850; 86900; 96361; 96374; 96375; 99284; 99291; J2270; J2405; J7030; Q9967

== ENCOUNTER 2021-10-30 22:32 | Emergency (ER) | payer MEDICAID, SELFPAY ==
[2021-10-30 22:33] VITALS: BMI 39.1
--- NOTE | 2021-10-30 22:38 | XRR_ITS ---
PROCEDURE INFORMATION: Exam: XR Chest Exam date and time: 10/30/2021 10:47 PM Age: 31 years old Clinical indication: Fever TECHNIQUE: Imaging protocol: Radiologic exam of the chest. Views: 1 view. COMPARISON: CR XR chest 1V portable [id number] 06/10/2019 3:37 AM FINDINGS: Lungs: Mild bilateral pneumonia. Pleural spaces: Unremarkable. No pleural effusion. No pneumothorax. Heart/Mediastinum: Unremarkable. No cardiomegaly. Bones/joints: Unremarkable. XR/XR chest 1V portable [id number] IMPRESSION: Mild bilateral pneumonia.
--- NOTE | 2021-10-30 22:38 | CTR_ITS ---
PROCEDURE INFORMATION: Exam: CT Abdomen And Pelvis With Contrast Exam date and time: 10/30/2021 11:29 PM Age: 31 years old Clinical indication: Prior surgery; Surgery type: Peg tube; Patient HX: Fever with diarrhea. Limited history. Patient non verbal. TECHNIQUE: Imaging protocol: Computed tomography of the abdomen and pelvis with contrast. Radiation optimization: All CT scans at this facility use at least one of these dose optimization techniques: automated exposure control; mA and/or kV adjustment per patient size (includes targeted exams where dose is matched to clinical indication); or iterative reconstruction. Contrast material: OMNI 350; Contrast volume: 80 ml; Contrast route: INTRAVENOUS (IV); COMPARISON: CT abdomen pelvis w con* [id number] 03/18/2021 3:18 AM RADIATION DOSE METRICS: Total DLP (mGy-cm): 937.58 FINDINGS: Tubes, catheters and devices: Stable PEG tube. Liver: Normal. No mass. Gallbladder and bile ducts: Normal. No calcified stones. No ductal dilation. Pancreas: Normal. No ductal dilation. Spleen: Normal. No splenomegaly. Adrenal glands: Normal. No mass. Kidneys and ureters: Normal. No hydronephrosis. Stomach and bowel: Nacz-ke-glycuhyi retained feces in the rectum. Appendix: No evidence of appendicitis. Intraperitoneal space: Unremarkable. No free air. No significant fluid collection. Vasculature: Stable IVC filter. Lymph nodes: Unremarkable. No enlarged lymph nodes. Urinary bladder: Unremarkable as visualized. Reproductive: Unremarkable as visualized. Bones/joints: Examination is limited by artifact from one or both arms by the patient's side. Soft tissues: Unremarkable. CT/CT abdomen pelvis w con* [id number] IMPRESSION: 1. Stable PEG tube. 2. Stable IVC filter. 3. Rlmz-pz-vaqxsrkt retained feces in the rectum. COMMENTS: For patients with an IVC filter, recommend assessment for a management plan for the patient's IVC filter. If there is no established management plan, recommend referral to an interventional clinician on a nonemergent basis for evaluation.
--- NOTE | 2021-10-30 22:39 | ECG_ITS ---
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 Measurements Intervals Aldie Rate: 123 P: 49 NV: 139 QRS: 75 QRSD: 82 T: 37 QT: 277 QTc: 397 Interpretive Statements SINUS TACHYCARDIA INDETERMINATE AXIS ABNORMAL RHYTHM ECG Compared to ECG 09/12/2017 02:54:36 Indeterminate axis now present Sinus rhythm no longer present Electronically Signed On 10-31-2021 6:37:17 CDT by Billie Pierce M.D. [id number]
--- NOTE | 2021-10-30 22:45 | W.ED.ABDPA2 ---
HPI - Abdominal Pain General: Chief Complaint: Abdominal Pain Stated Complaint: peg tube Time Seen by Provider: 10/30/21 22:35 Source: EMS Mode of arrival: EMS Limitations: altered mental status History of Present Illness: 31-year-old male is here from alf he has a history of a traumatic brain injury over 10 years ago baseline is nonverbal and bedbound he states that he has feeding tube in place for his feedings he also has chronic constipation. [facility] states that he has been febrile today. Have some abdominal distention as well. Patient is completely nonverbal no history is available from him he has had no vomiting or diarrhea or cough. Review of Systems General: Reports: ROS unobtainable due to mental status PFS ED PFSH: Medical History (Updated 10/31/21 @ 01:03 by Scar Aguirre MD) Chronic constipation Chronic kidney disease Chronic pain syndrome Constipation Dysphagia Spastic quadriplegia TBI (traumatic brain injury) Surgical History (System 09/21/20 @ 12:34 by Kinjal Fields) H/O esophagogastroduodenoscopy (09/12/20) Hx of tracheostomy S/P percutaneous endoscopic gastrostomy (PEG) tube placement Family History Other Family history non-contributory Social History (System 09/21/20 @ 12:34 by Kinjal Fields) Smoking and tobacco status: never smoked Housing: Assisted Current occupational status: disabled Course Vital Signs: Vital signs: Vital Signs Temperature 97.5 F L 10/30/21 22:56 Pulse Rate 97 10/31/21 01:00 Respiratory Rate 17 10/31/21 01:00 Blood Pressure 146/86 10/31/21 01:00 Pulse Oximetry 95 10/31/21 01:00 Oxygen Delivery Me thod 10/31/21 01:00 MDM - Abdominal Pain Medical Decision Making Patient presents here with low-grade fever at alf concern of PEG tube not working CT of his abdomen showed no acute abnormalities he does have chronic constipation x-ray shows concern for possible pneumonia we will start antibiotics he is well-appearing here and stable for discharge back to alf. Lab Data : 10/30/21 23:00 10/30/21 23:00 Labs/Radiology: Radiology Impressions Abdomen/Pelvis CT 10/30/21 22:38 IMPRESSION: 1. Stable PEG tube. 2. Stable IVC filter. 3. Nfem-fb-vwoyhshp retained feces in the rectum. COMMENTS: For patients with an IVC filter, recommend assessment for a management plan for the patient's IVC filter. If there is no established management plan, recommend referral to an interventional clinician on a nonemergent basis for evaluation. Chest X-Ray 10/30/21 22:38 IMPRESSION: Mild bilateral pneumonia. Laboratory Results WBC 13.7 10^3/uL (4.0-10.0) H 10/30/21 23:00 RBC 4.94 10^6/uL (4.1-5.3) 10/30/21 23:00 Hgb 16.2 g/dL (11.7-16.6) 10/30/21 23:00 Hct 49.5 % (42.0-52.0) 10/30/21 23:00 MCV 100.2 fl (80-94) H 10/30/21 23:00 MCH 32.8 pg (28.0-34.0) 10/30/21 23:00 MCHC 32.7 g/dL (30.0-36.0) 10/30/21 23:00 RDW 12.9 % (12.1-15.1) 10/30/21 23:00 Plt Count 454 10^3/cmm (130-400) H 10/30/21 23:00 MPV 11.5 fL (7.4-10.4) H 10/30/21 23:00 Neut % (Auto) 71.2 % 10/30/21 23:00 Lymph % (Auto) 16.7 % 10/30/21 23:00 [place] % (Auto) 10.7 % 10/30/21 23:00 Eos % (Auto) 0.4 % 10/30/21 23:00 Baso % (Auto) 0.7 % 10/30/21 23:00 Neut # (Auto) 9.75 10^3/uL (1.8-7.7) H 10/30/21 23:00 Lymph # (Auto) 2.3 10^3/uL (0.8-4.8) 10/30/21 23:00 [place] # (Auto) 1.5 10^3/uL (0.2-0.9) H 10/30/21 23:00 Eos # (Auto) 0.1 10^3/uL (0.0-0.8) 10/30/21 23:00 Baso # (Auto) 0.1 10^3/uL (0.0-0.1) 10/30/21 23:00 Nucleated RBC % (auto) 0 % 10/30/21 23:00 Nucleated RBCs # 0.0 /100WBC 10/30/21 23:00 Sodium 143 mmol/L (136-145) 10/30/21 23:00 Potassium 4.9 mmol/L (3.5-5.1) 10/30/21 23:00 Chloride 107 mmol/L (98-107) 10/30/21 23:00 Carbon Dioxide 22 mmol/L (22-29) 10/30/21 23:00 Anion Gap 18.9 (5-19) 10/30/21 23:00 BUN 16 mg/dL (6-20) 10/30/21 23:00 Creatinine 0.4 mg/dL (0.7-1.2) L 10/30/21 23:00 GFR Calculation 250.9 mL/min (90-130) H 10/30/21 23:00 Glucose 102 mg/dL (65-115) 10/30/21 23:00 Calculated Osmolality 297 mOsm/kg (285-295) H 10/30/21 23:00 Lactate 0.9 mmol/L (0.5-2.2) 10/30/21 23:00 Calcium 9.1 mg/dL (8.5-10.5) 10/30/21 23:00 Magnesium 2.3 mg/dL (1.7-2.3) 10/30/21 23:00 Total Bilirubin 0.4 mg/dL (0.15-1.2) 10/30/21 23:00 AST 27 U/L (0-40) 10/30/21 23:00 ALT 26 U/L (0-41) 10/30/21 23:00 Alkaline Phosphatase 103 IU/L (40-130) 10/30/21 23:00 Total Protein 7.5 g/dL (6.6-8.7) 10/30/21 23:00 Albumin 4.2 g/dL (3.5-5.2) 10/30/21 23:00 Globulin 3.3 g/dL (1.3-4.6) 10/30/21 23:00 Lipase 25 U/L (13-60) 10/30/21 23:00 Urine Color Yellow (Yellow) 10/30/21 23:00 Urine Appearance Clear (CLEAR) 10/30/21 23:00 Urine pH 5 (5-7) 10/30/21 23:00 Ur Specific [place] 1.025 (1.005-1.030) 10/30/21 23:00 Urine Protein Neg (Negative) 10/30/21 23:00 Urine Glucose (UA) Norm (Normal) 10/30/21 23:00 Urine Ketones 1+ (Negative) H 10/30/21 23:00 Urine Blood Neg (Negative) 10/30/21 23:00 Urine Nitrate Negative (Negative) 10/30/21 23:00 Urine Bilirubin Neg (Negative) 10/30/21 23:00 Urine Urobilinogen 1 mg/dL (Negative) H 10/30/21 23:00 Ur Leukocyte Esterase Negative (Negative) 10/30/21 23:00 SARS-CoV-2 Ag (Rapid) Negative (Negative) 10/30/21 23:00 EKG Data EKG 1: I personally reviewed and interpreted this EKG as follows: EKG interpretation date: 10/30/21 EKG interpretation time: 22:56 Interpretation: sinus tach hr [address] or t wave abnormalities qrs 82 qtc 350 Discharge Plan Discharge Patient Disposition: Home Clinical Impression: Pneumonia Condition: Stable Prescriptions: New levofloxacin 250 mg/10 mL solution 750 mg PO DAILY 5 Days Qty: 150 0RF No Action sennosides [senna] 8.6 mg Tablet 17.2 mg feeding tube DAILY@0800 acetaminophen 650 mg Suppository 650 mg RI Q4H PRN (Reason: Pain) Rx Instructions: do not exceed more than 4000mg in 24 hours from all sources polyethylene glycol 3350 [Miralax] 17 gram Powder In Packet 17 g feeding tube DAILY@0800 metoclopramide HCl 5 mg/5 mL Solution 10 mg feeding tube Q8H Rx Instructions: TAKE AT 08,16,00, acetaminophen 500 mg Tablet 1,000 mg PO DAILY@0800 magnesium hydroxide [Milk of Magnesia] 400 mg/5 mL Suspension 30 ml feeding tube DAILY PRN (Reason: Constipation) Rx Instructions: 30 mL enteral tube daily prn baclofen 10 mg Tablet 20 mg feeding tube TID@08,14,20 bisacodyl 10 mg Suppository 10 mg RI DAILY PRN (Reason: Constipation) bisacodyl 10 mg Suppository See Rx Instructions .ROUTE .COMPLEX Rx Instructions: 10 mg rectally every 2 days Enema Disposable 19-7 gram/118 mL Enema 118 ml RI DAILY PRN (Reason: Constipation) loratadine 10 mg Tablet 10 mg feeding tube DAILY@0800 hydrocodone-acetaminophen 7.5-325 mg/15 mL Solution 15 ml feeding tube Q6H PRN (Reason: Pain) lactulose 10 gram/15 mL Solution 30 ml feeding tube TID@08,14,20 Rx Instructions: hold for loose stools Jevity 1.5 Jerry 0.06 gram-1.5 kcal/mL Liquid See Rx Instructions .ROUTE .COMPLEX Rx Instructions: 80ml/hr as directed-start jevity 80ml/hr at 6:00 and run for 18 hours-stop jevity for 6 hours at midnight. simethicone 80 mg Tablet,Chewable 80 mg feeding tube TID@,,20 magnesium citrate [Citrate of Magnesia] Solution 300 ml feeding tube DAILY@0800 PRN (Reason: constipation) pantoprazole [Protonix] [address] For Susp In Packet 40 mg PO BID Qty: 0 0RF Discharge Orders: Discharge ED (Routine); Ordered 10/31/21 Ordered By: Scar Aguirre Referrals: Abram Tellez Jr, MD [Primary Care Provider] - Discharge Diet: Advance as tolerated Discharge Activity: Resume usual activity Patient Instructions: Pneumonia (ED) Coding Level of Care Code ED Cardiopulmonary Technician for Chino Wu
[2021-10-30] MEDS: acetaminophen 650 mg Supp PR (22:50)
[2021-10-30 22:56] VITALS: BP 120/94; PULSE 119; RESP 16; TEMP 36.4; O2SAT 93
[2021-10-30] MEDS: sodium chloride 0.9% 1,000 ML 999 ML IV (23:00)
[2021-10-30 23:14] LABS: Basophils # 0.1 10^3/uL (0.0-0.1); Basophils % 0.7 %; Eosinophils # 0.1 10^3/uL (0.0-0.8); Eosinophils % 0.4 %; Hematocrit 49.5 % (42.0-52.0); Hemoglobin 16.2 g/dL (11.7-16.6); Lymphocytes # 2.3 10^3/uL (0.8-4.8); Lymphocytes % 16.7 %; Mean Corpuscular HGB Conc 32.7 g/dL (30.0-36.0); Mean Corpuscular Hemoglobin 32.8 pg (28.0-34.0); Mean Corpuscular Volume 100.2 fl (80-94); Mean Platelet Volume 11.5 fL (7.4-10.4); Monocytes # 1.5 10^3/uL (0.2-0.9); Monocytes % 10.7 %; Neutrophils # 9.75 10^3/uL (1.8-7.7); Neutrophils % 71.2 %; Nucleated Red Blood Cells % 0 %; Platelet Count 454 10^3/cmm (130-400); Red Blood Count 4.94 10^6/uL (4.1-5.3); Red Cell Distribution Width 12.9 % (12.1-15.1); White Blood Count 13.7 10^3/uL (4.0-10.0)
[2021-10-30 23:22] LABS: Add Urine Microscopic? NO; Charge for UA Resulting for Rev
[2021-10-30 23:42] LABS: Bilirubin Urine Neg (Negative); Blood Urine Neg (Negative); Glucose Urine UA Norm (Normal); Ketones Urine 1+ (Negative); Leukocyte Esterase Urine Negative (Negative); Nitrate Urine Negative (Negative); Protein Urine Neg (Negative); SARS Covid-2 Antigen Negative (Negative); Specific Gravity, Urine 1.025 (1.005-1.030); Urine Appearance Clear (CLEAR); Urine Color Yellow (Yellow); Urobilinogen Urine 1 mg/dL (Negative); pH Urine 5 (5-7)
[2021-10-30 23:44] LABS: Albumin Level 4.2 g/dL (3.5-5.2); Alkaline Phosphatase 103 IU/L (40-130); Blood Urea Nitrogen 16 mg/dL (6-20); Calcium 9.1 mg/dL (8.5-10.5); Carbon Dioxide 22 mmol/L (22-29); Chloride 107 mmol/L (98-107); Globulin 3.3 g/dL (1.3-4.6); Glomerular Filtration Rate 250.9 mL/min (90-130); Glucose 102 mg/dL (65-115); Lipase 25 U/L (13-60); Magnesium 2.3 mg/dL (1.7-2.3); Osmolality Calculated 297 mOsm/kg (285-295); Sodium 143 mmol/L (136-145); Total Bilirubin 0.4 mg/dL (0.15-1.2); Total Protein 7.5 g/dL (6.6-8.7)
[2021-10-30 23:45] LABS: Lactate (Lactic Acid level) 0.9 mmol/L (0.5-2.2)
[2021-10-30 23:46] LABS: Alanine Aminotransferase 26 U/L (0-41); Anion Gap 18.9 (5-19); Aspartate Amino Transferase 27 U/L (0-40); Potassium 4.9 mmol/L (3.5-5.1)
[2021-10-31 00:29] VITALS: BP 146/81; PULSE 98; RESP 18; O2SAT 93
[2021-10-31 01:00] VITALS: BP 146/86; PULSE 97; RESP 17; O2SAT 95
[2021-10-31] MEDS: iohexol 350 mg/mL 100 mL Btl IV (01:05)
[2021-10-31] MEDS: levofloxacin-dextrose 5 % 750 MG/150 ML PREMIX 100 MG IV (01:23)
[2021-10-31 03:36] VITALS: BP 148/80; PULSE 100; RESP 17; O2SAT 95
--- NOTE | 2021-10-31 05:15 | ED_ITS ---
HPI - Abdominal Pain General: Chief Complaint: Abdominal Pain Stated Complaint: peg tube Time Seen by Provider: 10/30/21 22:35 Source: EMS Mode of arrival: EMS Limitations: altered mental status History of Present Illness: .. PFSH ED PFSH: Medical History (Updated 10/31/21 @ 01:03 by Scar Aguirre MD) Chronic constipation Chronic kidney disease Chronic pain syndrome Constipation Dysphagia Spastic quadriplegia TBI (traumatic brain injury) Surgical History (System 09/21/20 @ 12:34 by Kinjal Fields) H/O esophagogastroduodenoscopy (09/12/20) Hx of tracheostomy S/P percutaneous endoscopic gastrostomy (PEG) tube placement Family History Other Family history non-contributory Social History (System 09/21/20 @ 12:34 by Kinjal Fields) Smoking and tobacco status: never smoked Housing: [facility] Current occupational status: disabled Physical Exam Const: GENERAL APPEARANCE: frail appearing HENMT: COMMON NORMALS: normocephalic and atraumatic HEAD & SCALP: normocephalic and atraumatic Eye: COMMON NORMALS: conjunctivae normal CONJUNCTIVA: Yes conjunctivae normal Neck/C-Spine: COMMON NORMALS: full ROM Chest: COMMONS NORMALS: normal inspection of the chest and normal palpation of entire chest wall Resp: COMMON NORMALS: normal respiratory effort, No retractions, No use of accessory muscles and clear to auscultation bilaterally AUSCULTATION: clear to auscultation bilaterally Cardio: COMMON NORMALS: regular rate and regular rhythm RATE: regular rate RHYTHM: regular rhythm GI: OTHER: Abdomen is distended seems to be nontender bowel sounds normal Extremity: COMMON NORMALS: normal to inspection Neuro: OTHER: Nonverbal at baseline Psych: COMMON NORMALS: negative for mental status grossly normal Skin: COMMON NORMALS: no rashes or lesions noted GENERAL SKIN EXAM: no rashes or lesions noted Course Vital Signs: Vital signs: Vital Signs Temperature 97.5 F L 10/30/21 22:56 Pulse Rate 100 10/31/21 03:36 Respiratory Rate 17 10/31/21 03:36 Blood Pressure 148/80 10/31/21 03:36 Pulse Oximetry 95 10/31/21 03:36 Oxygen Delivery Me thod 10/31/21 01:00 MDM - Abdominal Pain Medical Decision Making This is added to previous note to complete the physical exam Lab Data : 10/30/21 23:00 10/30/21 23:00 Labs/Radiology: Radiology Impressions Abdomen/Pelvis CT 10/30/21 22:38 IMPRESSION: 1. Stable PEG tube. 2. Stable IVC filter. 3. Kpcv-lb-jzcdcxlt retained feces in the rectum. COMMENTS: For patients with an IVC filter, recommend assessment for a management plan for the patient's IVC filter. If there is no established management plan, recommend referral to an interventional clinician on a nonemergent basis for evaluation. Chest X-Ray 10/30/21 22:38 IMPRESSION: Mild bilateral pneumonia. Laboratory Results WBC 13.7 10^3/uL (4.0-10.0) H 10/30/21 23:00 RBC 4.94 10^6/uL (4.1-5.3) 10/30/21 23:00 Hgb 16.2 g/dL (11.7-16.6) 10/30/21 23:00 Hct 49.5 % (42.0-52.0) 10/30/21 23:00 MCV 100.2 fl (80-94) H 10/30/21 23:00 MCH 32.8 pg (28.0-34.0) 10/30/21 23:00 MCHC 32.7 g/dL (30.0-36.0) 10/30/21 23:00 RDW 12.9 % (12.1-15.1) 10/30/21 23:00 Plt Count 454 10^3/cmm (130-400) H 10/30/21 23:00 MPV 11.5 fL (7.4-10.4) H 10/30/21 23:00 Neut % (Auto) 71.2 % 10/30/21 23:00 Lymph % (Auto) 16.7 % 10/30/21 23:00 [place] % (Auto) 10.7 % 10/30/21 23:00 Eos % (Auto) 0.4 % 10/30/21 23:00 Baso % (Auto) 0.7 % 10/30/21 23:00 Neut # (Auto) 9.75 10^3/uL (1.8-7.7) H 10/30/21 23:00 Lymph # (Auto) 2.3 10^3/uL (0.8-4.8) 10/30/21 23:00 [place] # (Auto) 1.5 10^3/uL (0.2-0.9) H 10/30/21 23:00 Eos # (Auto) 0.1 10^3/uL (0.0-0.8) 10/30/21 23:00 Baso # (Auto) 0.1 10^3/uL (0.0-0.1) 10/30/21 23:00 Nucleated RBC % (auto) 0 % 10/30/21 23:00 Nucleated RBCs # 0.0 /100WBC 10/30/21 23:00 Sodium 143 mmol/L (136-145) 10/30/21 23:00 Potassium 4.9 mmol/L (3.5-5.1) 10/30/21 23:00 Chloride 107 mmol/L (98-107) 10/30/21 23:00 Carbon Dioxide 22 mmol/L (22-29) 10/30/21 23:00 Anion Gap 18.9 (5-19) 10/30/21 23:00 BUN 16 mg/dL (6-20) 10/30/21 23:00 Creatinine 0.4 mg/dL (0.7-1.2) L 10/30/21 23:00 GFR Calculation 250.9 mL/min (90-130) H 10/30/21 23:00 Glucose 102 mg/dL (65-115) 10/30/21 23:00 Calculated Osmolality 297 mOsm/kg (285-295) H 10/30/21 23:00 Lactate 0.9 mmol/L (0.5-2.2) 10/30/21 23:00 Calcium 9.1 mg/dL (8.5-10.5) 10/30/21 23:00 Magnesium 2.3 mg/dL (1.7-2.3) 10/30/21 23:00 Total Bilirubin 0.4 mg/dL (0.15-1.2) 10/30/21 23:00 AST 27 U/L (0-40) 10/30/21 23:00 ALT 26 U/L (0-41) 10/30/21 23:00 Alkaline Phosphatase 103 IU/L (40-130) 10/30/21 23:00 Total Protein 7.5 g/dL (6.6-8.7) 10/30/21 23:00 Albumin 4.2 g/dL (3.5-5.2) 10/30/21 23:00 Globulin 3.3 g/dL (1.3-4.6) 10/30/21 23:00 Lipase 25 U/L (13-60) 10/30/21 23:00 Urine Color Yellow (Yellow) 10/30/21 23:00 Urine Appearance Clear (CLEAR) 10/30/21 23:00 Urine pH 5 (5-7) 10/30/21 23:00 Ur Specific [place] 1.025 (1.005-1.030) 10/30/21 23:00 Urine Protein Neg (Negative) 10/30/21 23:00 Urine Glucose (UA) Norm (Normal) 10/30/21 23:00 Urine Ketones 1+ (Negative) H 10/30/21 23:00 Urine Blood Neg (Negative) 10/30/21 23:00 Urine Nitrate Negative (Negative) 10/30/21 23:00 Urine Bilirubin Neg (Negative) 10/30/21 23:00 Urine Urobilinogen 1 mg/dL (Negative) H 10/30/21 23:00 Ur Leukocyte Esterase Negative (Negative) 10/30/21 23:00 SARS-CoV-2 Ag (Rapid) Negative (Negative) 10/30/21 23:00 Discharge Plan Discharge Patient Disposition: Home Clinical Impression: Pneumonia Condition: Stable Prescriptions: New levofloxacin 250 mg/10 mL solution 750 mg PO DAILY 5 Days Qty: 150 0RF No Action sennosides [senna] 8.6 mg Tablet 17.2 mg feeding tube DAILY@0800 acetaminophen 650 mg Suppository 650 mg NM Q4H PRN (Reason: Pain) Rx Instructions: do not exceed more than 4000mg in 24 hours from all sources polyethylene glycol 3350 [Miralax] 17 gram Powder In Packet 17 g feeding tube DAILY@0800 metoclopramide HCl 5 mg/5 mL Solution 10 mg feeding tube Q8H Rx Instructions: TAKE AT 08,16,00, acetaminophen 500 mg Tablet 1,000 mg PO DAILY@0800 magnesium hydroxide [Milk of Magnesia] 400 mg/5 mL Suspension 30 ml feeding tube DAILY PRN (Reason: Constipation) Rx Instructions: 30 mL enteral tube daily prn baclofen 10 mg Tablet 20 mg feeding tube TID@08,14,20 bisacodyl 10 mg Suppository 10 mg NM DAILY PRN (Reason: Constipation) bisacodyl 10 mg Suppository See Rx Instructions .ROUTE .COMPLEX Rx Instructions: 10 mg rectally every 2 days Enema Disposable 19-7 gram/118 mL Enema 118 ml NM DAILY PRN (Reason: Constipation) loratadine 10 mg Tablet 10 mg feeding tube DAILY@0800 hydrocodone-acetaminophen 7.5-325 mg/15 mL Solution 15 ml feeding tube Q6H PRN (Reason: Pain) lactulose 10 gram/15 mL Solution 30 ml feeding tube TID@08,14,20 Rx Instructions: hold for loose stools Jevity 1.5 Jerry 0.06 gram-1.5 kcal/mL Liquid See Rx Instructions .ROUTE .COMPLEX Rx Instructions: 80ml/hr as directed-start jevity 80ml/hr at 6:00 and run for 18 hours-stop jevity for 6 hours at midnight. simethicone 80 mg Tablet,Chewable 80 mg feeding tube TID@08,14,20 magnesium citrate [Citrate of Magnesia] Solution 300 ml feeding tube DAILY@0800 PRN (Reason: constipation) pantoprazole [Protonix] [address] For Susp In Packet 40 mg PO BID Qty: 0 0RF Discharge Orders: Discharge ED (Routine); Ordered 10/31/21 Ordered By: Scar Aguirre Referrals: Abram Tellez Jr, MD [Primary Care Provider] - Discharge Diet: Advance as tolerated Discharge Activity: Resume usual activity Patient Instructions: Pneumonia (ED) Coding Level of Care Code ED Chronometer Adjuster for Chino Wu
== END 2021-10-31 04:40 | disposition home or self-care (01) ==
PROVIDERS: Emergency Provider Emergency Medicine; PCP Family Medicine
DX: J18.9 Pneumonia, unspecified organism (principal); Z87.820 Personal history of traumatic brain injury; G82.50 Quadriplegia, unspecified; Z20.822 Contact with and (suspected) exposure to COVID-19
CPT/HCPCS: 71045; 74177; 80053; 81003; 83605; 83690; 83735; 85025; 87040; 87426; 93005; 96365; 99285; J1956; J7030; Q9967

== ENCOUNTER 2022-02-25 16:47 | Emergency (ER) | payer MEDICAID, SELFPAY ==
--- NOTE | 2022-02-25 16:51 | W.ED.GENADLT ---
HPI - General Adult General: Chief complaint: General Medical Stated complaint: G TUBE OUT Time Seen by Provider: 02/25/22 16:51 Source: patient Mode of arrival: EMS History of Present Illness: [facility] with [facility] having been dislodged they are unable to replace it at the prison they presented here with a 20 [place]inese gastrostomy tube on the gurney from the prison. He usually lives at [facility]. He has had multiple episodes in the past for this is been displaced G-tube is been in place for several years. Otherwise he has no other complaints. Review of Systems General: Reports: ROS unobtainable due to mental status PFSH ED PFSH: Medical History Chronic constipation Chronic kidney disease Chronic pain syndrome Constipation Dysphagia Spastic quadriplegia TBI (traumatic brain injury) Surgical History H/O esophagogastroduodenoscopy (09/12/20) Hx of tracheostomy S/P percutaneous endoscopic gastrostomy (PEG) tube placement Family History Other Family history non-contributory Social History Smoking and tobacco status: never smoked Housing: [facility] Current occupational status: disabled Physical Exam Const: COMMON NORMALS: no acute distress Resp: COMMON NORMALS: normal respiratory effort, No retractions, No use of accessory muscles and clear to auscultation bilaterally AUSCULTATION: clear to auscultation bilaterally Cardio: COMMON NORMALS: regular rate, regular rhythm and No murmurs present (Cardio) RATE: regular rate RHYTHM: regular rhythm GI: COMMON NORMALS: Soft to palpation and No hepatosplenomegaly present AUSCULTATION: Yes normoactive bowel sounds PALPATION: Yes Soft to palpation, No Tenderness to palpation present (GI), No Guarding due to palpation present (GI) and Yes No hepatosplenomegaly present Procedures Feeding Tube Replacement Type of Tube: gastrostomy Insertion Site Prior to Procedure: clean Tube Used for Reinsertion: patient's own Sammarinese Tube Size (F): 20 Verification of Placement: auscultation Tube Secured by: attachment device Patient Tolerated Procedure: well Course Vital Signs: Vital signs: Vital Signs Temperature 98.2 F 02/25/22 16:54 Pulse Rate 95 02/25/22 16:54 Respiratory Rate 17 02/25/22 16:54 Blood Pressure 130/80 02/25/22 16:54 Pulse Oximetry 97 02/25/22 16:54 Oxygen Delivery Me thod 02/25/22 16:54 MDM - General Adult Medical Decision Making To expedite care patient gastrostomy tube was replaced while he was on the EMS gurney they were kind enough to bring him immediately back to [facility] so he did not have a prolonged ER stay. Tube placement was without difficulty and confirmed by auscultation. EMS will return patient to [facility] directly. Medical Records I reviewed the patient's medical records. Discharge Plan Discharge Patient Disposition: Home Clinical Impression: Dislodged gastrostomy tube Condition: Stable Prescriptions: No Action sennosides [senna] 8.6 mg Tablet 17.2 mg feeding tube DAILY@0800 acetaminophen 650 mg Suppository 650 mg AK Q4H PRN (Reason: Pain) Rx Instructions: do not exceed more than 4000mg in 24 hours from all sources polyethylene glycol 3350 [Miralax] 17 gram Powder In Packet 17 g feeding tube DAILY@0800 metoclopramide HCl 5 mg/5 mL Solution 10 mg feeding tube Q8H Rx Instructions: TAKE AT 08,16,00, acetaminophen 500 mg Tablet 1,000 mg PO DAILY@0800 magnesium hydroxide [Milk of Magnesia] 400 mg/5 mL Suspension 30 ml feeding tube DAILY PRN (Reason: Constipation) Rx Instructions: 30 mL enteral tube daily prn baclofen 10 mg Tablet 20 mg feeding tube TID@08,14,20 bisacodyl 10 mg Suppository 10 mg AK DAILY PRN (Reason: Constipation) bisacodyl 10 mg Suppository See Rx Instructions .ROUTE .COMPLEX Rx Instructions: 10 mg rectally every 2 days Enema Disposable 19-7 gram/118 mL Enema 118 ml [place] DAILY PRN (Reason: Constipation) loratadine 10 mg Tablet 10 mg feeding tube DAILY@0800 hydrocodone-acetaminophen 7.5-325 mg/15 mL Solution 15 ml feeding tube Q6H PRN (Reason: Pain) lactulose 10 gram/15 mL Solution 30 ml feeding tube TID@08,14,20 Rx Instructions: hold for loose stools Jevity 1.5 Jerry 0.06 gram-1.5 kcal/mL Liquid See Rx Instructions .ROUTE .COMPLEX Rx Instructions: 80ml/hr as directed-start jevity 80ml/hr at 6:00 and run for 18 hours-stop jevity for 6 hours at midnight. simethicone 80 mg Tablet,Chewable 80 mg feeding tube TID@08,14,20 magnesium citrate [Citrate of Magnesia] Solution 300 ml feeding tube DAILY@0800 PRN (Reason: constipation) pantoprazole [Protonix] [address] For Susp In Packet 40 mg PO BID Qty: 0 0RF Discharge Orders: Discharge ED (Routine); Ordered 02/25/22 Ordered By: Pancho Vega Referrals: Abram Tellez Jr, MD [Primary Care Provider] - Discharge Diet: Usual diet Discharge Activity: Resume usual activity Patient Instructions: Opioid Safety, Pain Management Activity Restrictions/Additional Instructions: You were seen for dislodged gastrostomy tube. A 20 [place] gastrostomy tube was replaced without difficulty. Routine cares of the tube. Coding Level of Care Code ED Patient Services Specialist for Chino Wu
[2022-02-25 16:54] VITALS: BP 130/80; PULSE 95; RESP 17; TEMP 36.8; O2SAT 97
== END 2022-02-25 16:58 | disposition home or self-care (01) ==
PROVIDERS: Emergency Provider Family Medicine; PCP Family Medicine
DX: Z46.59 Encounter for fitting and adjustment of other gastrointestinal appliance and device (principal); Z87.820 Personal history of traumatic brain injury
CPT/HCPCS: 43762; 99283

== ENCOUNTER 2024-01-10 10:09 | Emergency (ER) | payer MEDICAID, SELFPAY ==
[2024-01-10 10:10] VITALS: BP 122/95; PULSE 101; RESP 12; TEMP 36.8; O2SAT 95
--- NOTE | 2024-01-10 10:27 | ED_ITS ---
HPI - General Adult General: Chief complaint: General Medical Stated complaint: pulled out g-tube Time Seen by Provider: 01/10/24 10:16 History of Present Illness: 33-year-old male presents emergency room via EMS from the [place] [facility] he had a pulled his PEG tube out his pain and a number of years. They replaced the PEG tube but not inflated balloon. No other reports problems or complications Related Data Home Medications Medication Instructions Recorded Confirmed acetaminophen 500 mg tablet 1,000 mg PO DAILY@0800 04/24/19 09/12/20 acetaminophen 650 mg rectal 650 mg IL Q4H PRN Pain 04/24/19 09/12/20 suppository baclofen 10 mg tablet 20 mg feeding tube TID@,,04/24/19 09/12/20 bisacodyl 10 mg rectal suppository 10 mg IL DAILY PRN Constipation 04/24/19 09/12/20 bisacodyl 10 mg rectal suppository See Rx Instructions .Route .COMPLEX 04/24/19 09/12/20 hydrocodone 7.5 mg-acetaminophen 15 ml feeding tube Q6H PRN Pain 04/24/19 09/12/20 325 mg/15 mL oral solution lactose-reduced food with fiber See Rx Instructions .Route .COMPLEX 04/24/19 09/12/20 0.06 gram-1.5 kcal/mL oral liquid (Jevity 1.5 Jerry) lactulose 10 gram/15 mL oral 30 ml feeding tube TID@08,,20 04/24/19 09/12/20 solution loratadine 10 mg tablet 10 mg feeding tube DAILY@0800 04/24/19 09/12/20 magnesium hydroxide 400 mg/5 mL 30 ml feeding tube DAILY PRN 04/24/19 09/12/20 oral suspension (Milk of Magnesia) Constipation metoclopramide HCl 5 mg/5 mL oral 10 mg feeding tube Q8H 04/24/19 09/12/20 solution polyethylene glycol 3350 17 gram 17 g feeding tube DAILY@0800 04/24/19 09/12/20 oral powder packet (Miralax) sennosides 8.6 mg tablet (senna) 17.2 mg feeding tube DAILY@0800 04/24/19 09/12/20 sodium phosphates 19 gram-7 118 ml IL DAILY PRN Constipation 04/24/19 09/12/20 gram/118 mL enema (Enema Disposable) magnesium citrate (Citrate of 300 ml feeding tube DAILY@0800 PRN 08/07/20 09/12/20 Magnesia oral) constipation simethicone 80 mg chewable tablet 80 mg feeding tube TID@08,14,20 08/07/20 09/12/20 Previous Rx's Medication Instructions Recorded pantoprazole 40 mg granules 40 mg PO BID #0 ea 08/09/20 delayed-release for susp in packet (Protonix) Allergies Allergy/AdvReac Type Severity Reaction Status Date / Time No Known Allergies Allergy Verified 03/18/21 01:29 [facility] ED PFSH: Medical History Chronic constipation Chronic kidney disease Chronic pain syndrome Constipation Dysphagia Spastic quadriplegia TBI (traumatic brain injury) Surgical History H/O esophagogastroduodenoscopy (09/12/20) Hx of tracheostomy S/P percutaneous endoscopic gastrostomy (PEG) tube placement Family History Other Family history non-contributory Social History Smoking and tobacco/nicotine status: never used tobacco/nicotine Housing: [facility] Current occupational status: disabled Physical Exam GI: OTHER: Mild irritation around the PEG tube there is some dried blood from manipulation at the os. No induration no signs of infection old tubes in place was removed without difficulty balloon was deflated. Procedures Feeding Tube Replacement Type of Tube: gastrostomy Insertion Site Prior to Procedure: clean Tube Used for Reinsertion: Bard Tamazight Tube Size (F): 18 Balloon size (mL): 10 Verification of Placement: auscultation Tube Secured by: attachment device Patient Tolerated Procedure: well Course Vital Signs: Vital signs: Vital Signs Temperature 98.2 F 01/10/24 10:10 Pulse Rate 79 01/10/24 10:40 Respiratory Rate 12 01/10/24 10:10 Blood Pressure 122/65 01/10/24 10:40 Pulse Oximetry 96 01/10/24 10:40 Oxygen Delivery Me thod Room Air 01/10/24 10:10 MDM - General Adult Medical Decision Making Replaced without difficulty. Tubes been placed for some time auscultated with easily. Return to the [place] [facility]. Medical Records I reviewed the patient's medical records. No radiology studies performed this visit Discharge Plan Discharge Patient Disposition: Home Clinical Impression: PEG tube malfunction Condition: Stable Prescriptions: No Action sennosides [senna] 8.6 mg Tablet 17.2 mg feeding tube DAILY@0800 acetaminophen 650 mg Suppository 650 mg IL Q4H PRN (Reason: Pain) Rx Instructions: do not exceed more than 4000mg in 24 hours from all sources polyethylene glycol 3350 [Miralax] 17 gram Powder In Packet 17 g feeding tube DAILY@0800 metoclopramide HCl 5 mg/5 mL Solution 10 mg feeding tube Q8H Rx Instructions: TAKE AT 08,16,00, acetaminophen 500 mg Tablet 1,000 mg PO DAILY@0800 magnesium hydroxide [Milk of Magnesia] 400 mg/5 mL Suspension 30 ml feeding tube DAILY PRN (Reason: Constipation) Rx Instructions: 30 mL enteral tube daily prn baclofen 10 mg Tablet 20 mg feeding tube TID@08,14,20 bisacodyl 10 mg Suppository 10 mg IL DAILY PRN (Reason: Constipation) bisacodyl 10 mg Suppository See Rx Instructions .ROUTE .COMPLEX Rx Instructions: 10 mg rectally every 2 days Enema Disposable 19-7 gram/118 mL Enema 118 ml IL DAILY PRN (Reason: Constipation) loratadine 10 mg Tablet 10 mg feeding tube DAILY@0800 hydrocodone-acetaminophen 7.5-325 mg/15 mL Solution 15 ml feeding tube Q6H PRN (Reason: Pain) lactulose 10 gram/15 mL Solution 30 ml feeding tube TID@08,14,20 Rx Instructions: hold for loose stools Jevity 1.5 Jerry 0.06 gram-1.5 kcal/mL Liquid See Rx Instructions .ROUTE .COMPLEX Rx Instructions: 80ml/hr as directed-start jevity 80ml/hr at 6:00 and run for 18 hours-stop jevity for 6 hours at midnight. simethicone 80 mg Tablet,Chewable 80 mg feeding tube TID@08,14,20 magnesium citrate [Citrate of Magnesia] Solution 300 ml feeding tube DAILY@0800 PRN (Reason: constipation) pantoprazole [Protonix] [address] For Susp In Packet 40 mg PO BID Qty: 0 0RF Discharge Orders: Discharge ED (Routine); Ordered 01/10/24 Ordered By: Pancho Vega Referrals: Abram Tellez Jr, MD [Primary Care Provider] - Discharge Diet: Usual diet Discharge Activity: Resume usual activity Patient Instructions: Opioid Safety, Pain Management Activity Restrictions/Additional Instructions: Thank you for choosing [facility] for your healthcare needs today. It is very important that you follow up as instructed or that you return to the Emergency Department should you have concerns or if your condition changes or worsens in any way. You are seen after malfunction of your PEG tube which cannot come out. It was replaced with a new PEG tube. No complications or problems she can continue to use the PEG tube as previous with your usual medications and diet. Coding Level of Care Code ED Bean Picker for Chino Wu
[2024-01-10 10:40] VITALS: BP 122/65; PULSE 79; O2SAT 96
[2024-01-10 16:30] VITALS: BP 123/67; PULSE 88; O2SAT 94
--- NOTE | 2024-01-10 16:59 | PC.NURSE ---
ASSUMED CARE OF PT AT 1600 FROM [facility]. PT WAITING ON RIDE FROM EMS HOME.
[2024-01-10 18:30] VITALS: BP 96/68
[2024-01-10 20:12] VITALS: BP 131/91; PULSE 96; O2SAT 94
[2024-01-10 21:38] VITALS: PULSE 90; RESP 90
== END 2024-01-10 23:38 | disposition home or self-care (01) ==
PROVIDERS: Emergency Provider Family Medicine; PCP Family Medicine
DX: K94.23 Gastrostomy malfunction (principal); N18.9 Chronic kidney disease, unspecified
CPT/HCPCS: 43762; 99283

== ENCOUNTER 2024-04-01 21:11 | Inpatient (IN) | payer MEDICAID, SELFPAY ==
[2024-04-01] VITALS (7 sets, daily range): BP systolic 115–153; BP diastolic 87–115; PULSE 94–124; RESP 14–18; TEMP 37.8; O2SAT 91–96; BMI 39.1
--- NOTE | 2024-04-01 21:46 | XRR_ITS ---
PROCEDURE INFORMATION: Exam: XR Abdomen Exam date and time: 04/01/2024 9:53 PM Age: 33 years old Clinical indication: Device placement; Gi device; Peg tube; Additional info: Peg replacement, TECHNIQUE: Imaging protocol: Radiologic exam of the abdomen. Views: Frontal supine view of the abdomen. 1 View. COMPARISON: CT abdomen pelvis w con* [id number] 10/30/2021 11:29 PM FINDINGS: Tubes, catheters and devices: Contrast administration into the PEG tube demonstrates gastric and small bowel opacification. No gross contrast extravasation. Gastrointestinal tract: Gaseous distension of multiple large bowel loops concerning colonic ileus versus distal colonic obstruction. Intraperitoneal space: Limited evaluation for free air given supine examination. Vasculature: IVC filter noted. Bones/joints: Unremarkable. XR/XR abdomen 1V* [id number] IMPRESSION: As above. COMMENTS: For patients with an IVC filter, recommend assessment for a management plan for the patient's IVC filter. If there is no established management plan, recommend referral to an interventional clinician on a nonemergent basis for evaluation.
--- NOTE | 2024-04-01 21:51 | ED_ITS ---
Documented by User: Darryl Pozo, NURSE TECH 04/03/24 13:05 HPI - Abdominal Pain 2 General: Chief Complaint: Abdominal Pain Stated Complaint: PEG Tube issues Time Seen by Provider: 04/01/24 21:18 History of Present Illness: Patient is a 33-year-old male that presents to the emergency department for dislodged PEG tube. Patient is a resident at an [facility] care facility. He has had numerous visits here in the emergency department for dislodged PEG tubes. Related Data Home Medications Medication Instructions Recorded Confirmed acetaminophen 500 mg tablet 1,000 mg PO DAILY@0800 04/24/19 04/02/24 baclofen 10 mg tablet 20 mg feeding tube TID@,,04/24/19 04/02/24 bisacodyl 10 mg rectal suppository 10 mg [place] DAILY PRN Constipation 04/24/19 04/02/24 lactulose 10 gram/15 mL oral 45 ml feeding tube TID@,,04/24/19 04/02/24 solution magnesium hydroxide 400 mg/5 mL 30 ml feeding tube DAILY PRN 04/24/19 04/02/24 oral suspension (Milk of Magnesia) Constipation metoclopramide HCl 5 mg/5 mL oral 10 mg feeding tube Q8H 04/24/19 04/02/24 solution polyethylene glycol 3350 17 gram 17 g feeding tube DAILY@0800 04/24/19 04/02/24 oral powder packet (Miralax) sennosides 8.6 mg tablet (senna) 17.2 mg feeding tube DAILY@0800 04/24/19 04/02/24 sodium phosphates 19 gram-7 118 ml [place] DAILY PRN Constipation 04/24/19 04/02/24 gram/118 mL enema (Enema Disposable) magnesium citrate (Citrate of 300 ml feeding tube DAILY@0800 PRN 08/07/20 04/02/24 Magnesia oral) constipation simethicone 80 mg chewable tablet 80 mg feeding tube TID@,,08/07/20 04/02/24 loratadine 5 mg/5 mL oral solution 10 ml PO QAM 04/02/24 04/02/24 nystatin 100,000 unit/gram topical 1 applic topical BID 04/02/24 04/02/24 cream ondansetron HCl 4 mg/5 mL oral 4 mg PO Q6H 04/02/24 04/02/24 solution Previous Rx's Medication Instructions Recorded pantoprazole 40 mg granules 40 mg PO BID #0 ea 08/09/20 delayed-release for susp in packet (Protonix) Allergies Allergy/AdvReac Type Severity Reaction Status Date / Time No Known Allergies Allergy Verified 03/18/21 01:29 Review of Systems 2 General: Reports: ROS unobtainable due to medical condition and ROS unobtainable due to mental status PFSH ED 2 PFSH: Medical History Chronic pain syndrome Constipation Chronic kidney disease Dysphagia Spastic quadriplegia Chronic constipation TBI (traumatic brain injury) Surgical History H/O esophagogastroduodenoscopy (09/12/20) Hx of tracheostomy S/P percutaneous endoscopic gastrostomy (PEG) tube placement Family History Other Family history non-contributory Social History Smoking and tobacco/nicotine status: never used tobacco/nicotine Housing: [facility] Current occupational status: disabled Physical Exam 2 Const: GENERAL APPEARANCE: frail appearing HENMT: COMMON NORMALS: normocephalic and atraumatic HEAD & SCALP: n ormocephalic and atraumatic Eye: COMMON NORMALS: conjunctivae normal CONJUNCTIVA: Yes conjunctivae normal Neck/C-Spine: COMMON NORMALS: full ROM Chest: COMMONS NORMALS: normal inspection of the chest and normal palpation of entire chest wall Resp: COMMON NORMALS: normal respiratory effort, No retractions, No use of accessory muscles and clear to auscultation bilaterally AUSCULTATION: clear to auscultation bilaterally Cardio: COMMON NORMALS: regular rate and regular rhythm RATE: regular rate RHYTHM: regular rhythm GI: OTHER: Abdomen is distended Some tenderness to palpation Very hypoactive bowel sounds Blood at the os Extremity: COMMON NORMALS: normal to inspection Neuro: OTHER: Nonverbal at baseline Psych: COMMON NORMALS: negative for mental status grossly normal Skin: COMMON NORMALS: no rashes or lesions noted GENERAL SKIN EXAM: no rashes or lesions noted Course 2 Vital Signs: Vital signs: Vital Signs Temperature 98.0 F 04/03/24 12:00 Pulse Rate 78 04/03/24 12:00 Respiratory Rate 16 04/03/24 12:00 Blood Pressure 115/68 04/03/24 12:00 Pulse Oximetry 93 04/03/24 12:00 Oxygen Delivery Me thod Room Air 04/03/24 12:00 MDM - Abdominal Pain Medical Decision Making I was able to place an 18 [place] PEG tube. Patient appeared to be distended somewhat and I was able to aspirate gas, approximately 60 cc until gastric contents were aspirated. I inflated the bulb at the tip of the PEG tube without difficulty. It took 9 cc of sterile water. XR 1 view abdomen obtained with contrast. Imaging reveals diffuse colonic distention concerns for colonic ileus. CT abdomen pelvis was ordered as well as laboratory studies. Laboratory studies reveal leukocytosis but no anemias without cytopenia. He has no significant electrolyte abnormalities but does have an elevated lactic acid His PEG tube was placed to intermittent suction but unfortunately dissection did not work appropriately. Patient did vomit. We have placed a Ackerman and working on decompression. CT results are as reveals gaseous distention of loops of large bowel. There are areas of right hemicolon wall thickening as well as stricturing versus peristalsis of the mid to proximal sigmoid. This could be related to colitis versus infectious inflammatory etiology. I have ordered Zosyn as well as blood cultures with a repeat lactic acid. IV fluid 500 cc bolus has pending. I have spoken with the hospitalist who has agreed to admit the patient but needs plan from general surgery. General surgery has been contacted. No return call as of yet but patient admitted by hospitalist Lab Data 04/03/24 09:28 04/03/24 09:28 Labs/Radiology: Radiology Impressions Abdomen X-Ray 04/01/24 21:46 IMPRESSION: As above. COMMENTS: For patients with an IVC filter, recommend assessment for a management plan for the patient's IVC filter. If there is no established management plan, recommend referral to an interventional clinician on a nonemergent basis for evaluation. Abdomen/Pelvis CT 04/01/24 22:11 IMPRESSION: 1. Gaseous distension of loops of large bowel. There are areas of right hemicolon wall thickening as well as stricturing versus peristalsis proximal/mid sigmoid. Findings may be related to colitis of an infectious/inflammatory etiology. Stricturing of the proximal/mid sigmoid may be due to peristalsis. The patient can benefit from direct visualization with colonoscopy once clinically per minute. 2. The urinary bladder is underdistended around a Ackerman catheter with wall thickening. Correlate with urinalysis to exclude cystitis. 3. Additional incidental/chronic findings as above. COMMENTS: 1. For patients with an IVC filter, recommend assessment for a management plan for the patient's IVC filter. If there is no established management plan, recommend referral to an interventional clinician on a nonemergent basis for evaluation. 2. Consistent with the [employer]'s Incidental Findings Committee white paper (J Am Neli Radiol 2018): Any incidental renal lesion less than 1 cm or classified as too small to characterize, or any incidental cystic renal lesion characterized as simple-appearing, is likely benign. No follow-up imaging is recommended for these lesions per consensus recommendations based on imaging criteria. KUB X-Ray 04/03/24 10:54 IMPRESSION: Nonspecific. COMMENTS: For patients with an IVC filter, recommend assessment for a management plan for the patient's IVC filter. If there is no established management plan, recommend referral to an interventional clinician on a nonemergent basis for evaluation. Laboratory Results WBC 15.66 10^3/uL (3.29-11.43) H 04/01/24 23:00 RBC 4.79 10^6/uL (3.85-5.65) 04/01/24 23:00 Hgb 15.70 g/dL (11.27-16.99) 04/01/24 23:00 Hct 47.9 % (37-53) 04/01/24 23:00 MCV 100.0 fl (82-101) 04/01/24 23:00 MCH 32.8 pg (27-33) 04/01/24 23:00 MCHC 32.8 g/dL (30-55) 04/01/24 23:00 RDW 12.8 % (12.1-15.1) 04/01/24 23:00 Plt Count 437 10^3/cmm (157-399) H 04/01/24 23:00 MPV 10.7 fL (7.4-10.4) H 04/01/24 23:00 Neut % (Auto) 69.2 % 04/01/24 23:00 Lymph % (Auto) 19.7 % 04/01/24 23:00 [place] % (Auto) 8.7 % 04/01/24 23:00 Eos % (Auto) 1.4 % 04/01/24 23:00 Baso % (Auto) 0.6 % 04/01/24 23:00 Neut # (Auto) 10.82 10^3/uL (1.8-7.7) H 04/01/24 23:00 Lymph # (Auto) 3.1 10^3/uL (0.8-4.8) 04/01/24 23:00 [place] # (Auto) 1.4 10^3/uL (0.2-0.9) H 04/01/24 23:00 Eos # (Auto) 0.2 10^3/uL (0.0-0.8) 04/01/24 23:00 Baso # (Auto) 0.1 10^3/uL (0.0-0.1) 04/01/24 23:00 Nucleated RBC % (auto) 0 % 04/01/24 23:00 Nucleated RBCs # 0.0 /100WBC 04/01/24 23:00 ESR 15 mm/hr (0-10) H 04/01/24 23:00 Sodium 143 mmol/L (136-145) 04/01/24 23:00 Potassium 4.5 mmol/L (3.5-5.1) 04/01/24 23:00 Chloride 103 mmol/L (98-107) 04/01/24 23:00 Carbon Dioxide 30 mmol/L (22-29) H 04/01/24 23:00 Anion Gap 14.5 (5-19) 04/01/24 23:00 BUN 13 mg/dL (6-20) 04/01/24 23:00 Creatinine 0.5 mg/dL (0.7-1.2) L 04/01/24 23:00 GFR Calculation 191.5 mL/min (90-130) H 04/01/24 23:00 Glucose 108 mg/dL (65-115) 04/01/24 23:00 Calculated Osmolality 297 mOsm/kg (285-295) H 04/01/24 23:00 Lactic Acid 2.4 mmol/L (0.5-2.2) H 04/01/24 23:00 Calcium 8.6 mg/dL (8.5-10.5) 04/01/24 23:00 Total Bilirubin 0.3 mg/dL (0.15-1.2) 04/01/24 23:00 AST 23 U/L (0-40) 04/01/24 23:00 ALT 35 U/L (0-41) 04/01/24 23:00 Alkaline Phosphatase 95 U/L (40-130) 04/01/24 23:00 C-Reactive Protein 4.4 mg/L (0.0-4.9) 04/01/24 23:00 Total Protein 7.1 g/dL (6.6-8.7) 04/01/24 23:00 Albumin 4.2 g/dL (3.5-5.2) 04/01/24 23:00 Globulin 2.9 g/dL (1.3-4.6) 04/01/24 23:00 Lipase 37 U/L (13-60) 04/01/24 23:00 Procalcitonin 0.07 ng/mL (0-0.5) 04/01/24 23:00 Urine Color Yellow (Yellow) 04/01/24 23:11 Urine Appearance Clear (CLEAR) 04/01/24 23:11 Urine pH 5.5 (5-7) 04/01/24 23:11 Ur Specific [place] 1.024 (1.005-1.030) 04/01/24 23:11 Urine Protein Negative (Negative) 04/01/24 23:11 Urine Glucose (UA) Negative (Normal) 04/01/24 23:11 Urine Ketones Trace (Negative) 04/01/24 23:11 Urine Blood Negative (Negative) 04/01/24 23:11 Urine Nitrate Negative (Negative) 04/01/24 23:11 Urine Bilirubin Negative (Negative) 04/01/24 23:11 Urine Urobilinogen 1.0 mg/dL (Negative) 04/01/24 23:11 Ur Leukocyte Esterase 1+ (Negative) A 04/01/24 23:11 Urine RBC 3-5 /hpf (0-2) 04/01/24 23:11 Urine WBC 11-20 /hpf (0-5) H 04/01/24 23:11 Ur Squamous Epith Cells 0-5 /hpf (0-5) 04/01/24 23:11 Amorphous Sediment Not Reportable 04/01/24 23:11 Urine Bacteria 1+ /hpf (NONE) H 04/01/24 23:11 Hyaline Casts 2.05 /lpf 04/01/24 23:11 Blood Type O Positive 04/01/24 23:00 Rho(D) Type Rh positive 04/01/24 23:00 Antibody Screen Negative 04/01/24 23:00 Discharge Plan Discharge Patient Disposition: Admitted As Inpatient Admit Provider: Frank Berry Clinical Impression: Ileus, Colitis, Elevated lactic acid level, Leukocytosis, Malfunction of percutaneous endoscopic gastrostomy (PEG) tube Condition: Stable Coding Level of Care Code ED Policy Analyst for [facility] Documented by User: Harpal Hart DO 04/02/24 06:22 HPI - Abdominal Pain 2 General: Chief Complaint: Abdominal Pain Stated Complaint: PEG Tube issues Time Seen by Provider: 04/01/24 21:18 Related Data Home Medications Medication Instructions Recorded Confirmed acetaminophen 500 mg tablet 1,000 mg PO DAILY@0800 04/24/19 04/02/24 baclofen 10 mg tablet 20 mg feeding tube TID@08,,20 04/24/19 04/02/24 bisacodyl 10 mg rectal suppository 10 mg [place] DAILY PRN Constipation 04/24/19 04/02/24 lactulose 10 gram/15 mL oral 45 ml feeding tube TID@08,14,20 04/24/19 04/02/24 solution magnesium hydroxide 400 mg/5 mL 30 ml feeding tube DAILY PRN 04/24/19 04/02/24 oral suspension (Milk of Magnesia) Constipation metoclopramide HCl 5 mg/5 mL oral 10 mg feeding tube Q8H 04/24/19 04/02/24 solution polyethylene glycol 3350 17 gram 17 g feeding tube DAILY@0800 04/24/19 04/02/24 oral powder packet (Miralax) sennosides 8.6 mg tablet (senna) 17.2 mg feeding tube DAILY@0800 04/24/19 04/02/24 sodium phosphates 19 gram-7 118 ml [place] DAILY PRN Constipation 04/24/19 04/02/24 gram/118 mL enema (Enema Disposable) magnesium citrate (Citrate of 300 ml feeding tube DAILY@0800 PRN 08/07/20 04/02/24 Magnesia oral) constipation simethicone 80 mg chewable tablet 80 mg feeding tube TID@08,14,20 08/07/20 04/02/24 loratadine 5 mg/5 mL oral solution 10 ml PO QAM 04/02/24 04/02/24 nystatin 100,000 unit/gram topical 1 applic topical BID 04/02/24 04/02/24 cream ondansetron HCl 4 mg/5 mL oral 4 mg PO Q6H 04/02/24 04/02/24 solution Previous Rx's Medication Instructions Recorded pantoprazole 40 mg granules 40 mg PO BID #0 ea 08/09/20 delayed-release for susp in packet (Protonix) Allergies Allergy/AdvReac Type Severity Reaction Status Date / Time No Known Allergies Allergy Verified 03/18/21 01:29 PFSH ED 2 PFSH: Medical History Chronic pain syndrome Constipation Chronic kidney disease Dysphagia Spastic quadriplegia Chronic constipation TBI (traumatic brain injury) Surgical History H/O esophagogastroduodenoscopy (09/12/20) Hx of tracheostomy S/P percutaneous endoscopic gastrostomy (PEG) tube placement Family History Other Family history non-contributory Social History Smoking and tobacco/nicotine status: never used tobacco/nicotine Housing: [facility] Current occupational status: disabled Course 2 Vital Signs: Vital signs: Vital Signs Temperature 98.0 F 04/03/24 12:00 Pulse Rate 78 04/03/24 12:00 Respiratory Rate 16 04/03/24 12:00 Blood Pressure 115/68 04/03/24 12:00 Pulse Oximetry 93 04/03/24 12:00 Oxygen Delivery Me thod Room Air 04/03/24 12:00 MDM - Abdominal Pain Lab Data 04/03/24 09:28 04/03/24 09:28 Labs/Radiology: Radiology Impressions Abdomen X-Ray 04/01/24 21:46 IMPRESSION: As above. COMMENTS: For patients with an IVC filter, recommend assessment for a management plan for the patient's IVC filter. If there is no established management plan, recommend referral to an interventional clinician on a nonemergent basis for evaluation. Abdomen/Pelvis CT 04/01/24 22:11 IMPRESSION: 1. Gaseous distension of loops of large bowel. There are areas of right hemicolon wall thickening as well as stricturing versus peristalsis proximal/mid sigmoid. Findings may be related to colitis of an infectious/inflammatory etiology. Stricturing of the proximal/mid sigmoid may be due to peristalsis. The patient can benefit from direct visualization with colonoscopy once clinically per minute. 2. The urinary bladder is underdistended around a Ackerman catheter with wall thickening. Correlate with urinalysis to exclude cystitis. 3. Additional incidental/chronic findings as above. COMMENTS: 1. For patients with an IVC filter, recommend assessment for a management plan for the patient's IVC filter. If there is no established management plan, recommend referral to an interventional clinician on a nonemergent basis for evaluation. 2. Consistent with the [employer]'s Incidental Findings Committee white paper (J Am Neli Radiol 2018): Any incidental renal lesion less than 1 cm or classified as too small to characterize, or any incidental cystic renal lesion characterized as simple-appearing, is likely benign. No follow-up imaging is recommended for these lesions per consensus recommendations based on imaging criteria. KUB X-Ray 04/03/24 10:54 IMPRESSION: Nonspecific. COMMENTS: For patients with an IVC filter, recommend assessment for a management plan for the patient's IVC filter. If there is no established management plan, recommend referral to an interventional clinician on a nonemergent basis for evaluation. Laboratory Results WBC 15.66 10^3/uL (3.29-11.43) H 04/01/24 23:00 RBC 4.79 10^6/uL (3.85-5.65) 04/01/24 23:00 Hgb 15.70 g/dL (11.27-16.99) 04/01/24 23:00 Hct 47.9 % (37-53) 04/01/24 23:00 MCV 100.0 fl (82-101) 04/01/24 23:00 MCH 32.8 pg (27-33) 04/01/24 23:00 MCHC 32.8 g/dL (30-55) 04/01/24 23:00 RDW 12.8 % (12.1-15.1) 04/01/24 23:00 Plt Count 437 10^3/cmm (157-399) H 04/01/24 23:00 MPV 10.7 fL (7.4-10.4) H 04/01/24 23:00 Neut % (Auto) 69.2 % 04/01/24 23:00 Lymph % (Auto) 19.7 % 04/01/24 23:00 [place] % (Auto) 8.7 % 04/01/24 23:00 Eos % (Auto) 1.4 % 04/01/24 23:00 Baso % (Auto) 0.6 % 04/01/24 23:00 Neut # (Auto) 10.82 10^3/uL (1.8-7.7) H 04/01/24 23:00 Lymph # (Auto) 3.1 10^3/uL (0.8-4.8) 04/01/24 23:00 [place] # (Auto) 1.4 10^3/uL (0.2-0.9) H 04/01/24 23:00 Eos # (Auto) 0.2 10^3/uL (0.0-0.8) 04/01/24 23:00 Baso # (Auto) 0.1 10^3/uL (0.0-0.1) 04/01/24 23:00 Nucleated RBC % (auto) 0 % 04/01/24 23:00 Nucleated RBCs # 0.0 /100WBC 04/01/24 23:00 ESR 15 mm/hr (0-10) H 04/01/24 23:00 Sodium 143 mmol/L (136-145) 04/01/24 23:00 Potassium 4.5 mmol/L (3.5-5.1) 04/01/24 23:00 Chloride 103 mmol/L (98-107) 04/01/24 23:00 Carbon Dioxide 30 mmol/L (22-29) H 04/01/24 23:00 Anion Gap 14.5 (5-19) 04/01/24 23:00 BUN 13 mg/dL (6-20) 04/01/24 23:00 Creatinine 0.5 mg/dL (0.7-1.2) L 04/01/24 23:00 GFR Calculation 191.5 mL/min (90-130) H 04/01/24 23:00 Glucose 108 mg/dL (65-115) 04/01/24 23:00 Calculated Osmolality 297 mOsm/kg (285-295) H 04/01/24 23:00 Lactic Acid 2.4 mmol/L (0.5-2.2) H 04/01/24 23:00 Calcium 8.6 mg/dL (8.5-10.5) 04/01/24 23:00 Total Bilirubin 0.3 mg/dL (0.15-1.2) 04/01/24 23:00 AST 23 U/L (0-40) 04/01/24 23:00 ALT 35 U/L (0-41) 04/01/24 23:00 Alkaline Phosphatase 95 U/L (40-130) 04/01/24 23:00 C-Reactive Protein 4.4 mg/L (0.0-4.9) 04/01/24 23:00 Total Protein 7.1 g/dL (6.6-8.7) 04/01/24 23:00 Albumin 4.2 g/dL (3.5-5.2) 04/01/24 23:00 Globulin 2.9 g/dL (1.3-4.6) 04/01/24 23:00 Lipase 37 U/L (13-60) 04/01/24 23:00 Procalcitonin 0.07 ng/mL (0-0.5) 04/01/24 23:00 Urine Color Yellow (Yellow) 04/01/24 23:11 Urine Appearance Clear (CLEAR) 04/01/24 23:11 Urine pH 5.5 (5-7) 04/01/24 23:11 Ur Specific [place] 1.024 (1.005-1.030) 04/01/24 23:11 Urine Protein Negative (Negative) 04/01/24 23:11 Urine Glucose (UA) Negative (Normal) 04/01/24 23:11 Urine Ketones Trace (Negative) 04/01/24 23:11 Urine Blood Negative (Negative) 04/01/24 23:11 Urine Nitrate Negative (Negative) 04/01/24 23:11 Urine Bilirubin Negative (Negative) 04/01/24 23:11 Urine Urobilinogen 1.0 mg/dL (Negative) 04/01/24 23:11 Ur Leukocyte Esterase 1+ (Negative) A 04/01/24 23:11 Urine RBC 3-5 /hpf (0-2) 04/01/24 23:11 Urine WBC 11-20 /hpf (0-5) H 04/01/24 23:11 Ur Squamous Epith Cells 0-5 /hpf (0-5) 04/01/24 23:11 Amorphous Sediment Not Reportable 04/01/24 23:11 Urine Bacteria 1+ /hpf (NONE) H 04/01/24 23:11 Hyaline Casts 2.05 /lpf 04/01/24 23:11 Blood Type O Positive 04/01/24 23:00 Rho(D) Type Rh positive 04/01/24 23:00 Antibody Screen Negative 04/01/24 23:00 All radiology interpretation(s) finalized by discharge Discharge Plan Discharge Patient Disposition: Admitted As Inpatient Admit Provider: Frank Berry Clinical Impression: Ileus, Colitis, Elevated lactic acid level, Leukocytosis, Malfunction of percutaneous endoscopic gastrostomy (PEG) tube Condition: Stable Coding Level of Care Code ED Policy Analyst for Chino Wu
--- NOTE | 2024-04-01 22:11 | CTR_ITS ---
PROCEDURE INFORMATION: Exam: CT Abdomen And Pelvis With Contrast Exam date and time: 04/01/2024 11:58 PM Age: 33 years old Clinical indication: Abdominal pain; Generalized; Additional info: Abdominal distention, ileus TECHNIQUE: Imaging protocol: Computed tomography of the abdomen and pelvis with contrast. Radiation optimization: All CT scans at this facility use at least one of these dose optimization techniques: automated exposure control; mA and/or kV adjustment per patient size (includes targeted exams where dose is matched to clinical indication); or iterative reconstruction. Contrast material: OMNI 350; Contrast volume: 100 ml; Contrast route: INTRAVENOUS (IV); COMPARISON: CT abdomen pelvis w con* [id number] 10/30/2021 11:29 PM RADIATION DOSE METRICS: Total DLP (mGy-cm): 852.11 FINDINGS: Tubes, catheters and devices: PEG tube device in place. Lungs: Bibasilar atelectasis or scarring. Diaphragm: Small hiatal hernia with some fluid in the distal esophagus. Liver: Normal. No mass. Gallbladder and biliary ducts: Normal. No calcified stones. No ductal dilation. Pancreas: Normal. No ductal dilation. Spleen: Residual splenic tissue in the left upper quadrant. Adrenal glands: Normal. No mass. Kidneys and ureters: Left-sided renal cysts. Bilateral nonobstructing renal calculi. Stomach and bowel: Gaseous distended loops of large bowel. No small bowel dilatation. The right hemicolon demonstrates wall thickening including stricturing versus peristalsis of the proximal/mid sigmoid. Appendix: No evidence of appendicitis. Intraperitoneal space: Unremarkable. No free air. No significant fluid collection. Vasculature: IVC filter in place. Lymph nodes: Unremarkable. No enlarged lymph nodes. Urinary bladder: The urinary bladder is underdistended around a Ackerman catheter. Reproductive: Unremarkable as visualized. Bones/joints: There are chronic deformities of the bilateral iliac crests. Soft tissues: Unremarkable. Other findings: CT/CT abdomen pelvis w con* [id number] IMPRESSION: 1. Gaseous distension of loops of large bowel. There are areas of right hemicolon wall thickening as well as stricturing versus peristalsis proximal/mid sigmoid. Findings may be related to colitis of an infectious/inflammatory etiology. Stricturing of the proximal/mid sigmoid may be due to peristalsis. The patient can benefit from direct visualization with colonoscopy once clinically per minute. 2. The urinary bladder is underdistended around a Ackerman catheter with wall thickening. Correlate with urinalysis to exclude cystitis. 3. Additional incidental/chronic findings as above. COMMENTS: 1. For patients with an IVC filter, recommend assessment for a management plan for the patient's IVC filter. If there is no established management plan, recommend referral to an interventional clinician on a nonemergent basis for evaluation. 2. Consistent with the [employer]'s Incidental Findings Committee white paper (J Am Neli Radiol 2018): Any incidental renal lesion less than 1 cm or classified as too small to characterize, or any incidental cystic renal lesion characterized as simple-appearing, is likely benign. No follow-up imaging is recommended for these lesions per consensus recommendations based on imaging criteria.
[2024-04-01] MEDS: ondansetron 2 mg/ML SDV 2 mL 4 MG IVP (22:16)
[2024-04-01] MEDS: sodium chloride 0.9% 500 ML IV (22:16)
[2024-04-01 23:13] LABS: Basophils # 0.1 10^3/uL (0.0-0.1); Basophils % 0.6 %; Eosinophils # 0.2 10^3/uL (0.0-0.8); Eosinophils % 1.4 %; Hematocrit 47.9 % (37-53); Lymphocytes # 3.1 10^3/uL (0.8-4.8); Lymphocytes % 19.7 %; Mean Corpuscular HGB Conc 32.8 g/dL (30-55); Mean Corpuscular Hemoglobin 32.8 pg (27-33); Mean Platelet Volume 10.7 fL (7.4-10.4); Monocytes # 1.4 10^3/uL (0.2-0.9); Monocytes % 8.7 %; Neutrophils # 10.82 10^3/uL (1.8-7.7); Neutrophils % 69.2 %; Nucleated Red Blood Cells % 0 %; Platelet Count 437 10^3/cmm (157-399); Red Blood Count 4.79 10^6/uL (3.85-5.65); Red Cell Distribution Width 12.8 % (12.1-15.1); White Blood Count 15.66 10^3/uL (3.29-11.43)
[2024-04-01 23:18] LABS: Bilirubin Urine Negative (Negative); Blood Urine Negative (Negative); Glucose Urine UA Negative (Normal); Ketones Urine Trace (Negative); Leukocyte Esterase Urine 1+ (Negative); Nitrate Urine Negative (Negative); Protein Urine Negative (Negative); Specific Gravity, Urine 1.024 (1.005-1.030); Urine Appearance Clear (CLEAR); Urine Color Yellow (Yellow); pH Urine 5.5 (5-7)
[2024-04-01 23:21] LABS: Add Urine Microscopic? YES; Bacteria Urine 1+ /hpf; Hyaline Casts Urine 2.05 /lpf; Squamous Epithelial Cell Urine 0-5 /hpf (0-5); Universal Test for UA Present (0)
[2024-04-01 23:31] LABS: Alanine Aminotransferase 35 U/L (0-41); Albumin Level 4.2 g/dL (3.5-5.2); Alkaline Phosphatase 95 U/L (40-130); Anion Gap 14.5 (5-19); Aspartate Amino Transferase 23 U/L (0-40); Blood Urea Nitrogen 13 mg/dL (6-20); Calcium 8.6 mg/dL (8.5-10.5); Carbon Dioxide 30 mmol/L (22-29); Chloride 103 mmol/L (98-107); Creatinine Clr Calc Pharmacy 268.9885; Globulin 2.9 g/dL (1.3-4.6); Glomerular Filtration Rate 191.5 mL/min (90-130); Glucose 108 mg/dL (65-115); Lactic Sepsis W/Reflex 2.4 mmol/L (0.5-2.2); Lipase 37 U/L (13-60); Osmolality Calculated 297 mOsm/kg (285-295); Potassium 4.5 mmol/L (3.5-5.1); Sodium 143 mmol/L (136-145); Total Bilirubin 0.3 mg/dL (0.15-1.2); Total Protein 7.1 g/dL (6.6-8.7)
[2024-04-01 23:33] LABS: Add Urine Culture? No
[2024-04-02] VITALS (8 sets, daily range): BP systolic 105–143; BP diastolic 64–82; PULSE 76–108; RESP 13–18; TEMP 36.7–37.4; O2SAT 91–96
[2024-04-02] MEDS: iohexol 350 mg/mL 500 mL Btl (per mL) IV (00:01)
[2024-04-02 00:04] LABS: Reflex Lactate Order REFLEX LACTIC ORDERD
[2024-04-02] MEDS: piperacillin-tazobactam 3.375 GM in sodium chloride 0.9% (plus) 50 ML IV ×4 (00:15→23:29)
[2024-04-02] MEDS: sodium chloride 0.9% 1,000 ML 999 ML IV ×2 (00:15→02:34)
--- NOTE | 2024-04-02 00:26 | P.HP_ITS ---
Providers/Chief Complaint 2 Primary Care Provider: Abram Tellez Jr, MD Chief Complaint: PEG Tube issues History of Present Illness Jefe Blackmon is a 33 year old male with history of oropharyngeal dysphagia, GERD, persistent vegetative state, history of pressure ulcer, extremity contractures, constipation, gets feedings via PEG tube with history of TBI, spastic quadriplegia, nonverbal, bedbound was noted to have PEG tube dislodgment, in the ER CT scan showed colitis, sepsis, significant gastric distention, PEG tube was connected to low intermittent suction, general surgery consulted. Hospitalist was requested to admit the patient. Patient received septic bolus, Zosyn. Review of Systems 2 General: Reports: ROS unobtainable due to medical condition Medications/Allergies Home Medications Medication Instructions Recorded Confirmed Last Taken Type acetaminophen 500 mg tablet 1,000 mg PO DAILY@0800 04/24/19 09/12/20 1 Day Ago History ~09/11/20 acetaminophen 650 mg rectal 650 mg LA Q4H PRN Pain 04/24/19 09/12/20 1 Day Ago History suppository ~09/11/20 baclofen 10 mg tablet 20 mg feeding tube TID@,,04/24/19 09/12/20 1 Day Ago History ~09/11/20 bisacodyl 10 mg rectal suppository 10 mg LA DAILY PRN Constipation 04/24/19 09/12/20 1 Day Ago History ~09/11/20 bisacodyl 10 mg rectal suppository See Rx Instructions .Route .COMPLEX 04/24/19 09/12/20 1 Day Ago History ~09/11/20 hydrocodone 7.5 mg-acetaminophen 15 ml feeding tube Q6H PRN Pain 04/24/19 09/12/20 1 Week Ago History 325 mg/15 mL oral solution ~09/05/20 lactose-reduced food with fiber See Rx Instructions .Route .COMPLEX 04/24/19 09/12/20 1 Day Ago History 0.06 gram-1.5 kcal/mL oral liquid ~09/11/20 (Jevity 1.5 Jerry) lactulose 10 gram/15 mL oral 30 ml feeding tube TID@08,,20 04/24/19 09/12/20 1 Day Ago History solution ~09/11/20 loratadine 10 mg tablet 10 mg feeding tube DAILY@0800 04/24/19 09/12/20 1 Day Ago History ~09/11/20 magnesium hydroxide 400 mg/5 mL 30 ml feeding tube DAILY PRN 04/24/19 09/12/20 1 Day Ago History oral suspension (Milk of Magnesia) Constipation ~09/11/20 metoclopramide HCl 5 mg/5 mL oral 10 mg feeding tube Q8H 04/24/19 09/12/20 1 Day Ago History solution ~09/11/20 polyethylene glycol 3350 17 gram 17 g feeding tube DAILY@0800 04/24/19 09/12/20 1 Day Ago History oral powder packet (Miralax) ~09/11/20 sennosides 8.6 mg tablet (senna) 17.2 mg feeding tube DAILY@0800 04/24/19 09/12/20 1 Day Ago History ~09/11/20 sodium phosphates 19 gram-7 118 ml LA DAILY PRN Constipation 04/24/19 09/12/20 1 Day Ago History gram/118 mL enema (Enema ~09/11/20 Disposable) magnesium citrate (Citrate of 300 ml feeding tube DAILY@0800 PRN 08/07/20 09/12/20 1 Day Ago History Magnesia oral) constipation ~09/11/20 simethicone 80 mg chewable tablet 80 mg feeding tube TID@08/07/20 09/12/20 1 Day Ago History ~09/11/20 pantoprazole 40 mg granules 40 mg PO BID #0 ea 08/09/20 09/12/20 1 Day Ago Rx delayed-release for susp in packet ~09/11/20 (Protonix) Allergies Allergy/AdvReac Type Severity Reaction Status Date / Time No Known Allergies Allergy Verified 03/18/21 01:29 PFSH Acute 2 PFSH: Medical History Chronic pain syndrome Constipation Chronic kidney disease Dysphagia Spastic quadriplegia Chronic constipation TBI (traumatic brain injury) Surgical History H/O esophagogastroduodenoscopy (09/12/20) Hx of tracheostomy S/P percutaneous endoscopic gastrostomy (PEG) tube placement Family History Other Family history non-contributory Social History Smoking and tobacco/nicotine status: never used tobacco/nicotine Housing: Prison Current occupational status: disabled Vitals/I&O/Wt Last Vital Signs Temp 100.0 F H 04/01/24 21:15 Pulse 95 04/01/24 23:30 Resp 14 04/01/24 23:30 BP 131/87 04/01/24 23:30 Pulse Ox 95 04/01/24 23:30 04/01/24 04/01/24 04/02/24 14:59 22:59 06:59 Intake Total 0 / 0 Balance 0 / 0 Weight last 48 hrs Weight 120.202 kg Physical Exam 2 Narrative: Patient is nonverbal Extremity contractures Ackerman catheter in place PEG tube hooked up with intermittent suction draining brownish-green content Distended abdomen Looks clinically dehydrated Neuroexam limited Currently room air Hemodynamic stable S1, S2 tachycardia Urinary Catheter Management: Ackerman: Cath Placed During This Visit: yes Urinary Catheter Date of Insertion: 04/01/24 Urinary Catheter Time of Insertion: 23:10 Data 04/01/24 23:00 04/01/24 23:00 A&P Assessment and plan (1) Colitis: (2) Ileus: (3) Leukocytosis: (4) Elevated lactic acid level: (5) Malfunction of percutaneous endoscopic gastrostomy (PEG) tube: (6) Sepsis: Plan Sepsis related to colitis Start IV fluids Septic bolus administered I will give him another liter Patient not able to communicate Nonverbal related to traumatic brain injury Start IV antibiotics along IV fluids Monitor lactic acid, blood culture taken Ileus significant gastric distention PEG tube has been attached to low intermittent suction 400 mL of content noted in the container General Surgery consulted Mesenteric ischemia? Monitor lactic acid, he does have high leukocyte count No signs of perforated viscus Serial abdominal exam, repeat KUB after 6 hours Chronic indwelling catheter: Does have pyuria Full code N.p.o. Start dextrose normal saline as maintenance fluid DVT prophylaxis: SCDs avoiding anticoagulating agent in case patient would require intervention by surgery in the morning Attestations 2 Medical Necessity Statement*: More than 2 midnights anticipated Diagnoses Colitis K52.9 Ileus K56.7 Leukocytosis D72.829 Elevated lactic acid level R79.89 Malfunction of percutaneous endoscopic gastrostomy (PEG) tube K94.23 Sepsis A41.9
--- NOTE | 2024-04-02 03:09 | P.CONIM_ITS ---
Providers/Reason For Consult 2 Consulting Physician/Specialty*: Dr. Garcia general surgery Reason for Consult*: Ileus Attending Physician: Frank Berry MD Primary Care Provider: Abram Tellez Jr, MD History of Present Illness History of Present Illness Jefe Blackmon is a 33 year old male who presents with a dislodged G-tube. G- tube replaced in the ER. Patient had also experienced some episodes of vomiting. Leukocytosis mildly elevated lactic acid. 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 Abdomen benign. G-tube placed to suction and vomiting subsided. Medications/Allergies Home Medications Medication Instructions Recorded Confirmed Last Taken Type acetaminophen 500 mg tablet 1,000 mg PO DAILY@0800 04/24/19 04/02/24 1 Day Ago History ~09/11/20 baclofen 10 mg tablet 20 mg feeding tube TID@,,04/24/19 04/02/24 1 Day Ago History ~09/11/20 bisacodyl 10 mg rectal suppository 10 mg NJ DAILY PRN Constipation 04/24/19 04/02/24 1 Day Ago History ~09/11/20 lactulose 10 gram/15 mL oral 45 ml feeding tube TID@,,04/24/19 04/02/24 1 Day Ago History solution ~09/11/20 magnesium hydroxide 400 mg/5 mL 30 ml feeding tube DAILY PRN 04/24/19 04/02/24 1 Day Ago History oral suspension (Milk of Magnesia) Constipation ~09/11/20 metoclopramide HCl 5 mg/5 mL oral 10 mg feeding tube Q8H 04/24/19 04/02/24 1 Day Ago History solution ~09/11/20 polyethylene glycol 3350 17 gram 17 g feeding tube DAILY@0800 04/24/19 04/02/24 1 Day Ago History oral powder packet (Miralax) ~09/11/20 sennosides 8.6 mg tablet (senna) 17.2 mg feeding tube DAILY@0800 04/24/19 04/02/24 1 Day Ago History ~09/11/20 sodium phosphates 19 gram-7 118 ml NJ DAILY PRN Constipation 04/24/19 04/02/24 1 Day Ago History gram/118 mL enema (Enema ~09/11/20 Disposable) magnesium citrate (Citrate of 300 ml feeding tube DAILY@0800 PRN 08/07/20 04/02/24 1 Day Ago History Magnesia oral) constipation ~09/11/20 simethicone 80 mg chewable tablet 80 mg feeding tube TID@08,14,20 08/07/20 04/02/24 1 Day Ago History ~09/11/20 pantoprazole 40 mg granules 40 mg PO BID #0 ea 08/09/20 04/02/24 1 Day Ago Rx delayed-release for susp in packet ~09/11/20 (Protonix) loratadine 5 mg/5 mL oral solution 10 ml PO QAM 04/02/24 04/02/24 Unknown History nystatin 100,000 unit/gram topical 1 applic topical BID 04/02/24 04/02/24 Unknown History cream ondansetron HCl 4 mg/5 mL oral 4 mg PO Q6H 04/02/24 04/02/24 Unknown History solution Allergies Allergy/AdvReac Type Severity Reaction Status Date / Time No Known Allergies Allergy Verified 03/18/21 01:29 PFSH Acute 2 PFSH: Medical History Chronic pain syndrome Constipation Chronic kidney disease Dysphagia Spastic quadriplegia Chronic constipation TBI (traumatic brain injury) Surgical History H/O esophagogastroduodenoscopy (09/12/20) Hx of tracheostomy S/P percutaneous endoscopic gastrostomy (PEG) tube placement Family History Other Family history non-contributory Social History Smoking and tobacco/nicotine status: never used tobacco/nicotine Housing: Jail Current occupational status: disabled Vitals/I&O/Wt Last Vital Signs Temp 100.0 F H 04/01/24 21:15 Pulse 85 04/02/24 02:27 Resp 13 04/02/24 02:27 BP 105/79 04/02/24 01:02 Pulse Ox 94 04/02/24 02:27 O2 Del Method Room Air 04/02/24 01:02 01/05/2504/01/24 04/02/24 14:59 22:59 06:59 Intake Total 0 / 0 1550 / 1550 Balance 0 / 0 1550 / 1550 Weight last 48 hrs Weight 265 lb Physical Exam 2 Narrative: Chest: Unlabored breathing room air. No lymphadenopathy. Heart: Regular rate and rhythm. Abdomen: Soft, nontender, nondistended. No masses or lymphadenopathy. G-tube in place output consistent with gastric outflow. Urinary Catheter Management: Ackerman: Cath Placed During This Visit: yes Urinary Catheter Date of Insertion: 04/01/24 Urinary Catheter Time of Insertion: 23:10 Data 04/01/24 23:00 04/01/24 23:00 Micro: Microbiology 04/02/24 00:37 Blood Culture - Preliminary Blood SPECIMEN COLLECTED 04/02/24 00:34 Blood Culture - Preliminary Blood SPECIMEN COLLECTED A&P Assessment and plan (1) Ileus: Plan 33-year-old male who presented with a dislodged G-tube. G-tube replaced by ER. 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 Clinical picture most consistent with a diffuse ileus. Continue G tube to suction. May trial trickle tube feeds tomorrow. Coding Level of Care Code 94402 Diagnoses Ileus K56.7 Time Spent (min) 30
--- NOTE | 2024-04-02 03:09 | PM.MISC ---
Miscellaneous Note Note: Full consult note to follow. CT findings most consistent with neurogenic chronic megacolon. G tube replaced and placed to suction - vomiting subsided. Mildly elevated LA 2.4, WBC 15. Continue IVF resuscitation and G tube to suction.
[2024-04-02] MEDS: dextrose 5%-sod chloride 0.9% 1,000 ML 75 ML IV ×2 (04:18→17:00)
--- NOTE | 2024-04-02 07:00 | XRR_ITS ---
PROCEDURE INFORMATION: Exam: XR Abdomen Exam date and time: 04/02/2024 7:04 AM Age: 33 years old Clinical indication: Other: Gastric distention TECHNIQUE: Imaging protocol: Radiologic exam of the abdomen. Views: Frontal supine view of the abdomen. 1 View. COMPARISON: CT abdomen pelvis w con* [id number] 04/01/2024 11:58 PM FINDINGS: Gastrointestinal tract: Normal. Multiple dilated colonic loops are present. These findings correspond to ileus. The volume of colonic dilatation has decreased since prior examination. Bones/joints: Unremarkable. There is a gastrostomy tube present extending into the stomach. Vena cava filter is present in good position. XR/XR KUB portable [id number] IMPRESSION: 1. Multiple dilated bowel loops consistent with ileus decreased volume since prior 2. Gastrostomy tube in good position. 3. Vena cava filter in good position.
--- NOTE | 2024-04-02 08:05 | PC.PHAR ---
patient is from [facility], med list in the chart, patient nonverbal
--- NOTE | 2024-04-02 14:59 | P.PN_ITS ---
Subjective 2 Subjective: Patient was seen this morning, he is nonverbal, on room air, normotensive Vitals/I&O/Wt Last Vital Signs Temp 98.2 F 04/02/24 11:49 Pulse 87 04/02/24 11:49 Resp 18 04/02/24 11:49 BP 110/64 04/02/24 11:49 Pulse Ox 91 04/02/24 11:49 O2 Del Method Room Air 04/02/24 11:49 04/01/24 04/02/24 04/02/24 22:59 06:59 14:59 Intake Total 0 / 0 2500 / 2500 50 / 50 Output Total 250 / 250 Balance 0 / 0 2250 / 2250 50 / 50 Weight last 48 hrs Weight 77.337 kg Weight 120.202 kg Physical Exam 2 Const: COMMON NORMALS: no acute distress Eye: COMMON NORMALS: Equal, round and reactive pupils present PUPIL: Yes Equal, round and reactive pupils present Resp: COMMON NORMALS: normal respiratory effort, No retractions, No use of accessory muscles and clear to auscultation bilaterally AUSCULTATION: clear to auscultation bilaterally Cardio: COMMON NORMALS: regular rate, regular rhythm, S1 normal heart sound present and S2 normal heart sound present RATE: regular rate RHYTHM: r egular rhythm HEART SOUNDS: S1 normal heart sound present and S2 normal heart sound present GI: COMMON NORMALS: Normal to inspection, nondistended, normoactive bowel sounds present and non-tender OTHER: PEG tube in place Extremity: COMMON NORMALS: no pedal edema Psych: COMMON NORMALS: mental status grossly normal Skin: NARRATIVE SKIN EXAM: Flexion contractures bilateral upper lower extremities Urinary Catheter Management: Ackerman: Cath Placed During This Visit: yes Reason for Continuing Indwelling Catheter: Other Urinary Catheter Date of Insertion: 04/01/24 Urinary Catheter Time of Insertion: 23:10 Data 04/01/24 23:00 04/01/24 23:00 Micro: Microbiology 04/02/24 00:37 Blood Culture - Preliminary Blood SPECIMEN COLLECTED 04/02/24 00:34 Blood Culture - Preliminary Blood SPECIMEN COLLECTED A&P Assessment and plan (1) Colitis: (2) Ileus: (3) Leukocytosis: (4) Elevated lactic acid level: (5) Malfunction of percutaneous endoscopic gastrostomy (PEG) tube: (6) Sepsis: Plan Sepsis related to colitis Continue IV fluids ? Follow blood cultures -Continue Zosyn Nonverbal related to traumatic brain injury Ileus significant gastric distention CT/CT abdomen pelvis w con* [id number] IMPRESSION: 1. Gaseous distension of loops of large bowel. There are areas of right hemicolon wall thickening as well as stricturing versus peristalsis proximal/mid sigmoid. Findings may be related to colitis of an infectious/inflammatory etiology. Stricturing of the proximal/mid sigmoid may be due to peristalsis. The patient can benefit from direct visualization with colonoscopy once clinically per minute. 2. The urinary bladder is underdistended around a Ackerman catheter with wall thickening. Correlate with urinalysis to exclude cystitis. 3. Additional incidental/chronic findings as above. PEG tube has been attached to low intermittent suction 400 mL of content noted in the container General Surgery consulted Monitor lactic acid, he does have high leukocyte count No signs of perforated viscus Serial abdominal exam, repeat KUB in a.m. Chronic indwelling catheter: Does have pyuria Concerns for UTI, continue Zosyn Follow urine culture Full code N.p.o. Start dextrose normal saline as maintenance fluid DVT prophylaxis: SCDs avoiding anticoagulating agent in case patient would require intervention by surgery in the morning Attestations 2 Medical Necessity Statement*: Patient requires hospitalization due to sepsis related to colitis, Diagnoses Colitis K52.9 Ileus K56.7 Leukocytosis D72.829 Elevated lactic acid level R79.89 Malfunction of percutaneous endoscopic gastrostomy (PEG) tube K94.23 Sepsis A41.9
[2024-04-02 15:33] LABS: Erythrocyte Sedimentation Rate 15 mm/hr (0-10)
[2024-04-02 15:52] LABS: C Reactive Protein 4.4 mg/L (0.0-4.9)
[2024-04-02 15:59] LABS: Procalcitonin 0.07 ng/mL (0-0.5)
[2024-04-03] VITALS (7 sets, daily range): BP systolic 110–144; BP diastolic 66–73; PULSE 60–102; RESP 16–18; TEMP 36.6–37.1; O2SAT 91–95
[2024-04-03] MEDS: dextrose 5%-sod chloride 0.9% 1,000 ML 75 ML IV (05:12)
[2024-04-03] MEDS: piperacillin-tazobactam 3.375 GM in sodium chloride 0.9% (plus) 50 ML IV ×2 (05:47→14:53)
[2024-04-03 09:44] LABS: Basophils # 0.1 10^3/uL (0.0-0.1); Basophils % 0.7 %; Eosinophils # 0.2 10^3/uL (0.0-0.8); Eosinophils % 2.2 %; Hematocrit 43.5 % (37-53); Lymphocytes # 2.3 10^3/uL (0.8-4.8); Lymphocytes % 23.4 %; Mean Corpuscular HGB Conc 32.2 g/dL (30-55); Mean Corpuscular Hemoglobin 32.3 pg (27-33); Mean Corpuscular Volume 100.5 fl (82-101); Mean Platelet Volume 10.8 fL (7.4-10.4); Monocytes % 9.7 %; Neutrophils # 6.39 10^3/uL (1.8-7.7); Neutrophils % 63.8 %; Nucleated Red Blood Cells % 0 %; Platelet Count 410 10^3/cmm (157-399); Red Blood Count 4.33 10^6/uL (3.85-5.65); Red Cell Distribution Width 12.7 % (12.1-15.1); White Blood Count 10.01 10^3/uL (3.29-11.43)
[2024-04-03 10:24] LABS: Procalcitonin 0.06 ng/mL (0-0.5)
[2024-04-03 10:37] LABS: Alanine Aminotransferase 23 U/L (0-41); Albumin Level 4.2 g/dL (3.5-5.2); Alkaline Phosphatase 98 U/L (40-130); Anion Gap 17.9 (5-19); Aspartate Amino Transferase 14 U/L (0-40); Blood Urea Nitrogen 5 mg/dL (6-20); C Reactive Protein 22.2 mg/L (0.0-4.9); Calcium 8.7 mg/dL (8.5-10.5); Carbon Dioxide 22 mmol/L (22-29); Chloride 105 mmol/L (98-107); Creatinine Clr Calc Pharmacy 272.9139; Globulin 2.4 g/dL (1.3-4.6); Glomerular Filtration Rate 247.7 mL/min (90-130); Glucose 105 mg/dL (65-115); Osmolality Calculated 290 mOsm/kg (285-295); Potassium 3.9 mmol/L (3.5-5.1); Sodium 141 mmol/L (136-145); Total Bilirubin 0.9 mg/dL (0.15-1.2); Total Protein 6.6 g/dL (6.6-8.7)
--- NOTE | 2024-04-03 10:54 | XRR_ITS ---
PROCEDURE INFORMATION: Exam: XR Abdomen Exam date and time: 04/03/2024 12:04 PM Age: 33 years old Clinical indication: Other: Ileus TECHNIQUE: Imaging protocol: Radiologic exam of the abdomen. Views: Frontal supine view of the abdomen. 1 View. COMPARISON: CR XR KUB portable [id number] 04/02/2024 7:04 AM FINDINGS: Gastrointestinal tract: There is a large amount of gas within both colon and small bowel. The findings could represent either ileus or obstruction. Intraperitoneal space: No abnormal intra-abdominal masses or calcifications. Vasculature: IVC filter. Bones/joints: Unremarkable. XR/XR KUB portable [id number] IMPRESSION: Nonspecific. COMMENTS: For patients with an IVC filter, recommend assessment for a management plan for the patient's IVC filter. If there is no established management plan, recommend referral to an interventional clinician on a nonemergent basis for evaluation.
--- NOTE | 2024-04-03 11:26 | P.PN_ITS ---
Subjective 2 Subjective: No N/V Abdomen soft, ND VSS Vitals/I&O/Wt Last Vital Signs Temp 98.8 F 04/03/24 08:00 Pulse 71 04/03/24 08:14 Resp 16 04/03/24 08:14 BP 124/69 04/03/24 08:00 Pulse Ox 92 04/03/24 08:14 O2 Del Method Room Air 04/03/24 08:14 04/02/24 04/03/24 04/03/24 22:59 06:59 14:59 Intake Total 1000 / 1050 2014 Output Total 1250 / 1250 1350 / 2600 Balance -250 / -200 -385 / -585 Weight last 48 hrs Weight 171 lb 1 oz Weight 170 lb 8 oz Weight 265 lb Physical Exam 2 Narrative: RRR Unlabored breathing RA Abdomen soft, ND, G tube in place Urinary Catheter Management: Ackerman: Cath Placed During This Visit: yes Reason for Continuing Indwelling Catheter: Acute Urinary Retention or Obstruction Urinary Catheter Date of Insertion: 04/01/24 Urinary Catheter Time of Insertion: 23:10 Data 04/03/24 09:28 04/03/24 09:28 Micro: Microbiology 04/02/24 00:37 Blood Culture - Preliminary Blood Staphylococcus epidermidis 04/02/24 00:34 Blood Culture - Preliminary Blood NEGATIVE TO DATE A&P Assessment and plan (1) Ileus: Plan 33yo male with diffuse ileus. Ok to trial trickle feeds. Attestations 2 Medical Necessity Statement*: NA Coding Level of Care Code 05817 Diagnoses Ileus K56.7 Time Spent (min) 30
[2024-04-03] MEDS: simethicone 80 mg Chew PEG-TUBE ×2 (14:54→20:07)
[2024-04-03] MEDS: baclofen 10 mg Tablet 20 MG PEG-TUBE ×2 (14:55→20:07)
--- NOTE | 2024-04-03 15:06 | P.PN_ITS ---
Subjective 2 Subjective: Patient was seen this morning, he is nonverbal, afebrile overnight, normotensive, on room air Vitals/I&O/Wt Last Vital Signs Temp 98.0 F 04/03/24 12:00 Pulse 78 04/03/24 12:00 Resp 16 04/03/24 12:00 BP 115/68 04/03/24 12:00 Pulse Ox 93 04/03/24 12:00 O2 Del Method Room Air 04/03/24 12:00 04/03/24 04/03/24 04/03/24 06:59 14:59 22:59 Intake Total / 2014 726.25 / 726.25 Output Total 1350 / 2600 Balance -385 / -585 726.25 / 726.25 Weight last 48 hrs Weight 77.593 kg Weight 77.337 kg Weight 120.202 kg Physical Exam 2 Const: COMMON NORMALS: no acute distress and patient oriented x3 Resp: COMMON NORMALS: normal respiratory effort, No retractions, No use of accessory muscles and clear to auscultation bilaterally AUSCULTATION: clear to auscultation bilaterally Cardio: COMMON NORMALS: regular rate, regular rhythm, S1 normal heart sound present and S2 normal heart sound present RATE: regular rate RHYTHM: r egular rhythm HEART SOUNDS: S1 normal heart sound present and S2 normal heart sound present GI: COMMON NORMALS: Normal to inspection, nondistended, normoactive bowel sounds present and non-tender Extremity: COMMON NORMALS: no pedal edema Neuro: COMMON NORMALS: patient oriented x3 Psych: COMMON NORMALS: mental status grossly normal Urinary Catheter Management: Ackerman: Cath Placed During This Visit: yes Reason for Continuing Indwelling Catheter: Acute Urinary Retention or Obstruction Urinary Catheter Date of Insertion: 04/01/24 Urinary Catheter Time of Insertion: 23:10 Data 04/03/24 09:28 04/03/24 09:28 Micro: Microbiology 04/02/24 00:34 Blood Culture - Preliminary Blood Corynebacterium species Staphylococcus epidermidis 04/02/24 00:37 Blood Culture - Preliminary Blood Staphylococcus epidermidis Corynebacterium species A&P Assessment and plan (1) Colitis: (2) Ileus: (3) Leukocytosis: (4) Elevated lactic acid level: (5) Malfunction of percutaneous endoscopic gastrostomy (PEG) tube: (6) Sepsis: (7) Staphylococcus epidermidis bacteremia: Plan Staph epidermidis bacteremia -2 out of 3 blood cultures positive -Contamination versus real infection -Does have a Ackerman catheter in place -Does have a PEG tube in place -Repeat blood cultures -Remains afebrile, CRP 22.2, ESR within normal limits, Pro-Jerry within normal limits -For now start continue vancomycin -Follow repeat studies Sepsis related to colitis -Continue Zosyn Nonverbal related to traumatic brain injury Ileus significant gastric distention CT/CT abdomen pelvis w con* [id number] IMPRESSION: 1. Gaseous distension of loops of large bowel. There are areas of right hemicolon wall thickening as well as stricturing versus peristalsis proximal/mid sigmoid. Findings may be related to colitis of an infectious/inflammatory etiology. Stricturing of the proximal/mid sigmoid may be due to peristalsis. The patient can benefit from direct visualization with colonoscopy once clinically per minute. 2. The urinary bladder is underdistended around a Ackerman catheter with wall thickening. Correlate with urinalysis to exclude cystitis. 3. Additional incidental/chronic findings as above. PEG tube has been attached to low intermittent suction 400 mL of content noted in the container General Surgery consulted Monitor lactic acid, he does have high leukocyte count No signs of perforated viscus Serial abdominal exam, Start trickle tube feeds today Chronic indwelling catheter: Does have pyuria Concerns for UTI, continue Zosyn Follow urine culture Full code N.p.o. Start dextrose normal saline as maintenance fluid DVT prophylaxis: Lovenox Attestations 2 Medical Necessity Statement*: Patient requires hospitalization for Staph epidermidis bacteremia, ileus Diagnoses Colitis K52.9 Ileus K56.7 Leukocytosis D72.829 Elevated lactic acid level R79.89 Malfunction of percutaneous endoscopic gastrostomy (PEG) tube K94.23 Sepsis A41.9 Staphylococcus epidermidis bacteremia R78.81; B95.7
--- NOTE | 2024-04-03 15:19 | PHA.VACGOAL ---
Vancomycin Goal - Goal Vancomycin Goal:: 15-20 mg/L Vancomycin Indication:: Other - Therapy Current therapy:: Pip/Tazo Day of therpy:: Day []of [] . Actual body weight (kg): 171 lb 1 oz - Data Labs: WBC 10.01 10^3/uL (3.29-11.43) 04/03/24 09:28 RBC 4.33 10^6/uL (3.85-5.65) 04/03/24 09:28 Hgb 14.00 g/dL (11.27-16.99) 04/03/24 09:28 Hct 43.5 % (37-53) 04/03/24 09:28 MCV 100.5 fl (82-101) 04/03/24 09: MCH 32.3 pg (27-33) 04/03/24 09:28 MCHC 32.2 g/dL (30-55) 04/03/24 09:28 RDW 12.7 % (12.1-15.1) 04/03/24 09:28 Sodium 141 mmol/L (136-145) 04/03/24 09:28 Potassium 3.9 mmol/L (3.5-5.1) 04/03/24 09:28 Chloride 105 mmol/L (98-107) 04/03/24 09:28 Carbon Dioxide 22 mmol/L (22-29) 04/03/24 09:28 Anion Gap 17.9 (5-19) 04/03/24 09:28 BUN 5 mg/dL (6-20) L 04/03/24 09:28 Creatinine 0.4 mg/dL (0.7-1.2) L 04/03/24 09:28 GFR Calculation 247.7 mL/min (90-130) H 04/03/24 09:28 Treatment plan:: new consult Regimen:: 2000 MG LOADING DOSE FOR BACTEREMIA 1000 MG Q8H MAINTENANCE
--- NOTE | 2024-04-03 15:21 | PC.NUTR ---
Consult for PEG tube feeds received. Recommend beginning feeds @ 12mls/hr and increasing 10mls as tolerated Q8H until goal rate of 42mls/hr is reached with fresh water flushes of 120 mls Q4H or per MD discretion.
[2024-04-03] MEDS: vancomycin 2,000 MG/400 ML PIGGYBACK 200 MG IV (16:06)
[2024-04-03] MEDS: enoxaparin 40 mg/0.4 mL Syringe SUBCUT (16:06)
[2024-04-03] MEDS: VANCOMYCIN ADD-Vantage 1,000 MG in 0.9% NaCl ADD-Vantage 250 ML 250 MG IV (23:12)
[2024-04-04] VITALS (7 sets, daily range): BP systolic 99–145; BP diastolic 62–81; PULSE 62–99; RESP 14–22; TEMP 36.7–37.9; O2SAT 91–94
[2024-04-04] MEDS: piperacillin-tazobactam 3.375 GM in sodium chloride 0.9% (plus) 50 ML IV ×3 (00:07→16:01)
[2024-04-04] MEDS: diphenhydrAMINE 50 mg/mL SDV 1mL 25 MG IVP (01:30)
--- NOTE | 2024-04-04 06:00 | XRR_ITS ---
PROCEDURE INFORMATION: Exam: XR Abdomen Exam date and time: 04/04/2024 9:18 AM Age: 33 years old Clinical indication: Bloating; Additional info: Distention TECHNIQUE: Imaging protocol: Radiologic exam of the abdomen. Views: Frontal supine view of the abdomen. 1 View. COMPARISON: 1. CR (ABDOMEN, ) 04/03/2024 12:04 PM 2. CR (ABDOMEN, ) 04/01/2024 9:53 PM 3. CR XR KUB portable [id number] 04/02/2024 7:04 AM FINDINGS: Tubes, catheters and devices: Gastrostomy tube remains present similar to prior study. Gastrointestinal tract: Large amount of bowel gas, mainly within the colon, similar to prior study, slightly decreased compared to 04/01/2024. Evidence of contrast material in portions of colon, descending colon, probably sigmoid colon compared to prior studies. Vasculature: Inferior vena cava filter similar to prior study. Bones/joints: Unremarkable. XR/XR KUB portable [id number] IMPRESSION: Large amount of bowel gas, mainly within the colon, similar to prior study. Evidence of contrast material in portions of colon, descending colon, probably sigmoid colon compared to prior studies. COMMENTS: For patients with an IVC filter, recommend assessment for a management plan for the patient's IVC filter. If there is no established management plan, recommend referral to an interventional clinician on a nonemergent basis for evaluation.
[2024-04-04] MEDS: baclofen 10 mg Tablet 20 MG PEG-TUBE ×3 (08:38→20:13)
[2024-04-04] MEDS: simethicone 80 mg Chew PEG-TUBE ×3 (08:38→20:13)
[2024-04-04 09:09] LABS: Basophils # 0.1 10^3/uL (0.0-0.1); Basophils % 0.5 %; Eosinophils # 0.2 10^3/uL (0.0-0.8); Eosinophils % 1.8 %; Hematocrit 42.8 % (37-53); Lymphocytes % 16.4 %; Mean Corpuscular HGB Conc 32.5 g/dL (30-55); Mean Corpuscular Hemoglobin 32.2 pg (27-33); Mean Corpuscular Volume 99.1 fl (82-101); Mean Platelet Volume 10.7 fL (7.4-10.4); Monocytes # 1.3 10^3/uL (0.2-0.9); Monocytes % 10.7 %; Neutrophils # 8.48 10^3/uL (1.8-7.7); Neutrophils % 70.4 %; Nucleated Red Blood Cells % 0 %; Platelet Count 391 10^3/cmm (157-399); Red Blood Count 4.32 10^6/uL (3.85-5.65); Red Cell Distribution Width 12.6 % (12.1-15.1); White Blood Count 12.04 10^3/uL (3.29-11.43)
[2024-04-04 09:25] LABS: Alanine Aminotransferase 29 U/L (0-41); Albumin Level 3.7 g/dL (3.5-5.2); Alkaline Phosphatase 89 U/L (40-130); Anion Gap 24.7 (5-19); Aspartate Amino Transferase 21 U/L (0-40); Blood Urea Nitrogen 8 mg/dL (6-20); C Reactive Protein 43.2 mg/L (0.0-4.9); Calcium 8.4 mg/dL (8.5-10.5); Carbon Dioxide 22 mmol/L (22-29); Chloride 97 mmol/L (98-107); Creatinine Clr Calc Pharmacy 217.3265; Glomerular Filtration Rate 191.5 mL/min (90-130); Glucose 109 mg/dL (65-115); Magnesium 2.2 mg/dL (1.7-2.3); Osmolality Calculated 289 mOsm/kg (285-295); Phosphorus 3.2 mg/dL (2.5-4.5); Potassium 3.7 mmol/L (3.5-5.1); Sodium 140 mmol/L (136-145); Total Protein 6.7 g/dL (6.6-8.7)
[2024-04-04 09:49] LABS: Procalcitonin 0.09 ng/mL (0-0.5)
[2024-04-04] MEDS: polyethylene glycol 3350 Pkt 17 gm PEG-TUBE (12:28)
[2024-04-04] MEDS: lactulose oral liq 20 gm/30 mL UDC 30 GM OG-TUBE ×3 (12:28→20:17)
[2024-04-04] MEDS: sennosides 8.6 mg Tablet 17.2 MG PEG-TUBE (12:28)
[2024-04-04] MEDS: metoclopramide oral liquid 5 mg/5 mL (ml) 10 MG PEG-TUBE ×2 (12:32→20:18)
--- NOTE | 2024-04-04 15:38 | P.PN_ITS ---
Subjective 2 Subjective: Patient was seen this morning, is nonverbal, is seen lifting his right leg, Vitals/I&O/Wt Last Vital Signs Temp 99.4 F 04/04/24 12:00 Pulse 62 04/04/24 12:00 Resp 14 04/04/24 12:00 BP 109/63 04/04/24 12:00 Pulse Ox 93 04/04/24 12:00 O2 Del Method Room Air 04/04/24 12:00 04/04/24 04/04/24 04/04/24 06:59 14:59 22:59 Intake Total 332 / 1608.250 150 / 150 Output Total 800 / 2325 Balance -468 / -716.750 150 / 150 Weight last 48 hrs Weight 76.748 kg Weight 77.593 kg Physical Exam 2 Const: COMMON NORMALS: no acute distress and patient oriented x3 Resp: COMMON NORMALS: normal respiratory effort, No retractions, No use of accessory muscles and clear to auscultation bilaterally AUSCULTATION: clear to auscultation bilaterally Cardio: COMMON NORMALS: regular rate, regular rhythm, S1 normal heart sound present and S2 normal heart sound present RATE: regular rate RHYTHM: r egular rhythm HEART SOUNDS: S1 normal heart sound present and S2 normal heart sound present GI: COMMON NORMALS: Normal to inspection, nondistended, normoactive bowel sounds present and non-tender Extremity: COMMON NORMALS: no pedal edema Neuro: COMMON NORMALS: patient oriented x3 Psych: COMMON NORMALS: mental status grossly normal Urinary Catheter Management: Ackerman: Cath Placed During This Visit: yes Reason for Continuing Indwelling Catheter: Acute Urinary Retention or Obstruction Urinary Catheter Date of Insertion: 04/01/24 Urinary Catheter Time of Insertion: 23:10 Data 04/04/24 09:03 04/04/24 09:03 Micro: Microbiology 04/02/24 16:05 Urine Culture - Final Urine Catheterized 04/03/24 16:26 Blood Culture - Preliminary Blood SPECIMEN COLLECTED 04/03/24 16:20 Blood Culture - Preliminary Blood SPECIMEN COLLECTED 04/02/24 00:34 Blood Culture - Preliminary Blood Corynebacterium species Staphylococcus epidermidis 04/02/24 00:37 Blood Culture - Preliminary Blood Staphylococcus epidermidis Corynebacterium species A&P Assessment and plan (1) Colitis: (2) Ileus: (3) Leukocytosis: (4) Elevated lactic acid level: (5) Malfunction of percutaneous endoscopic gastrostomy (PEG) tube: (6) Sepsis: (7) Staphylococcus epidermidis bacteremia: Plan Staph epidermidis bacteremia -2 out of 3 blood cultures positive -Febrile up to 100.2 last night -Contamination versus real infection -Does have a Ackerman catheter in place -Does have a PEG tube in place -Repeat blood cultures -Remains afebrile, CRP 22.2, ESR within normal limits, Pro-Jerry within normal limits -For now start continue vancomycin -Follow repeat studies Sepsis related to colitis, Staph epidermidis bacteremia -Continue Zosyn 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 Gaseous distension of loops of large bowel. There are areas of right hemicolon wall thickening as well as stricturing versus peristalsis proximal/mid sigmoid. Findings may be related to colitis of an infectious/inflammatory etiology. Stricturing of the proximal/mid sigmoid may be due to peristalsis. The patient can benefit from direct visualization with colonoscopy once clinically per minute. 2. The urinary bladder is underdistended around a Ackerman catheter with wall thickening. Correlate with urinalysis to exclude cystitis. 3. Additional incidental/chronic findings as above. PEG tube has been attached to low intermittent suction 400 mL of content noted in the container General Surgery consulted Monitor lactic acid, he does have high leukocyte count No signs of perforated viscus Serial abdominal exam, Continue trickle tube feeds, monitor residuals Chronic indwelling catheter: Does have pyuria Concerns for UTI, continue Zosyn Follow urine culture Full code N.p.o. Start dextrose normal saline as maintenance fluid DVT prophylaxis: Lovenox Attestations 2 Medical Necessity Statement*: Patient requires hospitalization for Staph epidermidis bacteremia, sepsis related to colitis, Diagnoses Colitis K52.9 Ileus K56.7 Leukocytosis D72.829 Elevated lactic acid level R79.89 Malfunction of percutaneous endoscopic gastrostomy (PEG) tube K94.23 Sepsis A41.9 Staphylococcus epidermidis bacteremia R78.81; B95.7
[2024-04-04] MEDS: enoxaparin 40 mg/0.4 mL Syringe SUBCUT (16:01)
--- NOTE | 2024-04-04 16:32 | P.PN_ITS ---
Subjective 2 Subjective: Tolerating TF@40 Vitals/I&O/Wt Last Vital Signs Temp 98.9 F 04/04/24 16:00 Pulse 88 04/04/24 16:00 Resp 15 04/04/24 16:00 BP 103/65 04/04/24 16:00 Pulse Ox 94 04/04/24 16:00 O2 Del Method Room Air 04/04/24 16:00 04/04/24 04/04/24 04/04/24 06:59 14:59 22:59 Intake Total 332 / 1608.250 150 / 150 Output Total 800 / 2325 Balance -468 / -716.750 150 / 150 Weight last 48 hrs Weight 169 lb 3.2 oz Weight 171 lb 1 oz Physical Exam 2 Narrative: Abdomen soft, nt, nd Tolerating TFs@40 Urinary Catheter Management: Ackerman: Cath Placed During This Visit: yes Reason for Continuing Indwelling Catheter: Acute Urinary Retention or Obstruction Urinary Catheter Date of Insertion: 04/01/24 Urinary Catheter Time of Insertion: 23:10 Data 04/04/24 09:03 04/04/24 09:03 Micro: Microbiology 04/02/24 16:05 Urine Culture - Final Urine Catheterized 04/03/24 16:26 Blood Culture - Preliminary Blood SPECIMEN COLLECTED 04/03/24 16:20 Blood Culture - Preliminary Blood SPECIMEN COLLECTED 04/02/24 00:34 Blood Culture - Preliminary Blood Corynebacterium species Staphylococcus epidermidis 04/02/24 00:37 Blood Culture - Preliminary Blood Staphylococcus epidermidis Corynebacterium species A&P Assessment and plan (1) Ileus: Plan 33yo male whom surgery was consulted for diffuse ileus. Ileus resolved. Tolerating TFs. Attestations 2 Medical Necessity Statement*: NA Coding Level of Care Code 60241 Diagnoses Ileus K56.7 Time Spent (min) 30
--- NOTE | 2024-04-04 16:47 | PC.NURSE ---
Notified Dr. Villatoro of vancomycin on hold. Dr. Villatoro stated to restart vancomycin and run slower. Notified Roger in Pharmacy
[2024-04-04] MEDS: VANCOMYCIN ADD-Vantage 1,000 MG in 0.9% NaCl ADD-Vantage 250 ML 125 MG IV (16:53)
[2024-04-04 23:54] LABS: Vancomycin Trough 14.5 ug/mL (10-15)
[2024-04-05] VITALS (7 sets, daily range): BP systolic 110–132; BP diastolic 63–81; PULSE 76–97; RESP 14–18; TEMP 36.4–37; O2SAT 92–96
[2024-04-05] MEDS: VANCOMYCIN ADD-Vantage 1,000 MG in 0.9% NaCl ADD-Vantage 250 ML 125 MG IV ×3 (00:06→18:31)
[2024-04-05] MEDS: piperacillin-tazobactam 3.375 GM in sodium chloride 0.9% (plus) 50 ML IV ×2 (02:24→12:30)
[2024-04-05] MEDS: metoclopramide oral liquid 5 mg/5 mL (ml) 10 MG PEG-TUBE ×3 (03:24→20:23)
[2024-04-05 06:27] LABS: Basophils # 0.1 10^3/uL (0.0-0.1); Basophils % 0.7 %; Eosinophils # 0.4 10^3/uL (0.0-0.8); Eosinophils % 3.5 %; Hematocrit 42.3 % (37-53); Lymphocytes % 19.5 %; Mean Corpuscular HGB Conc 32.6 g/dL (30-55); Mean Corpuscular Hemoglobin 32.7 pg (27-33); Mean Corpuscular Volume 100.2 fl (82-101); Mean Platelet Volume 11.6 fL (7.4-10.4); Monocytes # 1.3 10^3/uL (0.2-0.9); Monocytes % 13.4 %; Neutrophils # 6.24 10^3/uL (1.8-7.7); Neutrophils % 62.6 %; Nucleated Red Blood Cells % 0 %; Platelet Count 366 10^3/cmm (157-399); Red Blood Count 4.22 10^6/uL (3.85-5.65); Red Cell Distribution Width 12.9 % (12.1-15.1); White Blood Count 9.98 10^3/uL (3.29-11.43)
[2024-04-05 06:51] LABS: Alanine Aminotransferase 27 U/L (0-41); Albumin Level 3.4 g/dL (3.5-5.2); Alkaline Phosphatase 74 U/L (40-130); Anion Gap 12.5 (5-19); Aspartate Amino Transferase 17 U/L (0-40); Blood Urea Nitrogen 6 mg/dL (6-20); C Reactive Protein 47.5 mg/L (0.0-4.9); Calcium 8.4 mg/dL (8.5-10.5); Carbon Dioxide 23 mmol/L (22-29); Chloride 109 mmol/L (98-107); Creatinine Clr Calc Pharmacy 217.5964; Globulin 3.1 g/dL (1.3-4.6); Glomerular Filtration Rate 191.5 mL/min (90-130); Glucose 108 mg/dL (65-115); Magnesium 2.1 mg/dL (1.7-2.3); Osmolality Calculated 290 mOsm/kg (285-295); Phosphorus 3.2 mg/dL (2.5-4.5); Potassium 3.5 mmol/L (3.5-5.1); Sodium 141 mmol/L (136-145); Total Bilirubin 0.4 mg/dL (0.15-1.2); Total Protein 6.5 g/dL (6.6-8.7)
[2024-04-05 06:59] LABS: Procalcitonin 0.08 ng/mL (0-0.5)
[2024-04-05] MEDS: simethicone 80 mg Chew PEG-TUBE ×2 (08:20→20:23)
[2024-04-05] MEDS: sennosides 8.6 mg Tablet 17.2 MG PEG-TUBE (08:20)
[2024-04-05] MEDS: baclofen 10 mg Tablet 20 MG PEG-TUBE ×2 (08:20→20:23)
--- NOTE | 2024-04-05 15:08 | P.PN_ITS ---
Subjective 2 Subjective: Patient was seen this morning, afebrile overnight, is nonverbal, receiving PEG tube feedings, will advance as tolerated, he had a large bowel movement overnight Vitals/I&O/Wt Last Vital Signs Temp 97.8 F 04/05/24 12:14 Pulse 81 04/05/24 12:14 Resp 17 04/05/24 12:14 BP 132/77 04/05/24 12:14 Pulse Ox 92 04/05/24 12:14 O2 Del Method Room Air 04/05/24 12:14 04/05/24 04/05/24 04/05/24 06:59 14:59 22:59 Intake Total 300 / 750.000 250 / 250 Balance 300 / 750.000 250 / 250 Weight last 48 hrs Weight 76.975 kg Weight 76.748 kg Physical Exam 2 Const: COMMON NORMALS: no acute distress and patient oriented x3 Resp: COMMON NORMALS: normal respiratory effort, No retractions, No use of accessory muscles and clear to auscultation bilaterally AUSCULTATION: clear to auscultation bilaterally Cardio: COMMON NORMALS: regular rate, regular rhythm, S1 normal heart sound present and S2 normal heart sound present RATE: regular rate RHYTHM: r egular rhythm HEART SOUNDS: S1 normal heart sound present and S2 normal heart sound present GI: COMMON NORMALS: Normal to inspection, nondistended, normoactive bowel sounds present and non-tender Extremity: COMMON NORMALS: no pedal edema Neuro: COMMON NORMALS: patient oriented x3 Psych: COMMON NORMALS: mental status grossly normal Urinary Catheter Management: Ackerman: Cath Placed During This Visit: yes Reason for Continuing Indwelling Catheter: Chronic Indwelling Urinary Catheter on Admission Urinary Catheter Date of Insertion: 04/01/24 Urinary Catheter Time of Insertion: 23:10 Data 04/05/24 05:51 04/05/24 05:51 Micro: Microbiology 04/03/24 16:26 Blood Culture - Preliminary Blood NEGATIVE TO DATE 04/03/24 16:20 Blood Culture - Preliminary Blood NEGATIVE TO DATE 04/02/24 16:05 Urine Culture - Final Urine Catheterized A&P Assessment and plan (1) Colitis: (2) Ileus: (3) Leukocytosis: (4) Elevated lactic acid level: (5) Malfunction of percutaneous endoscopic gastrostomy (PEG) tube: (6) Sepsis: (7) Staphylococcus epidermidis bacteremia: Plan Staphylococcus epidermidis bacteremia -2 out of 3 blood cultures positive -Afebrile -Contamination versus real infection -Does have a Ackerman catheter in place, changed about 3 days ago -Does have a PEG tube in place -No other artificial hardware -Repeat blood cultures so far no growth -Remains afebrile, CRP 47.5, ESR within normal limits, Pro-Jerry within normal limits - continue vancomycin -Follow repeat studies Sepsis related to colitis, Staph epidermidis bacteremia -Discontinue Zosyn 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 Gaseous distension of loops of large bowel. There are areas of right hemicolon wall thickening as well as stricturing versus peristalsis proximal/mid sigmoid. Findings may be related to colitis of an infectious/inflammatory etiology. Stricturing of the proximal/mid sigmoid may be due to peristalsis. The patient can benefit from direct visualization with colonoscopy once clinically per minute. 2. The urinary bladder is underdistended around a Ackerman catheter with wall thickening. Correlate with urinalysis to exclude cystitis. 3. Additional incidental/chronic findings as above. PEG tube has been attached to low intermittent suction 400 mL of content noted in the container General Surgery consulted No signs of perforated viscus Serial abdominal exam, Advance diet on tube feeds as tolerated, serial abdominal exams Chronic indwelling catheter: Does have pyuria Concerns for UTI, continue Zosyn, urine cultures no growth, stop Zosyn Full code N.p.o. DVT prophylaxis: Lovenox Attestations 2 Medical Necessity Statement*: Patient requires hospitalization for Staphylococcus epidermidis bacteremia Diagnoses Colitis K52.9 Ileus K56.7 Leukocytosis D72.829 Elevated lactic acid level R79.89 Malfunction of percutaneous endoscopic gastrostomy (PEG) tube K94.23 Sepsis A41.9 Staphylococcus epidermidis bacteremia R78.81; B95.7
[2024-04-05 18:15] LABS: Vancomycin Trough 20.4 ug/mL (10-15)
[2024-04-05] MEDS: enoxaparin 40 mg/0.4 mL Syringe SUBCUT (18:31)
[2024-04-05] MEDS: lactulose oral liq 20 gm/30 mL UDC 30 GM OG-TUBE (20:23)
[2024-04-06] VITALS (7 sets, daily range): BP systolic 107–132; BP diastolic 68–82; PULSE 69–92; RESP 15–19; TEMP 36.3–37.1; O2SAT 92–99
[2024-04-06] MEDS: VANCOMYCIN ADD-Vantage 1,000 MG in 0.9% NaCl ADD-Vantage 250 ML 125 MG IV ×2 (02:50→20:37)
[2024-04-06] MEDS: metoclopramide oral liquid 5 mg/5 mL (ml) 10 MG PEG-TUBE ×3 (02:51→20:37)
[2024-04-06 07:40] LABS: Basophils # 0.1 10^3/uL (0.0-0.1); Basophils % 0.7 %; Eosinophils # 0.3 10^3/uL (0.0-0.8); Eosinophils % 2.3 %; Hematocrit 45.1 % (37-53); Lymphocytes # 1.9 10^3/uL (0.8-4.8); Lymphocytes % 15.1 %; Mean Corpuscular HGB Conc 32.6 g/dL (30-55); Mean Corpuscular Hemoglobin 32.6 pg (27-33); Mean Platelet Volume 11.5 fL (7.4-10.4); Monocytes # 1.7 10^3/uL (0.2-0.9); Monocytes % 13.6 %; Neutrophils # 8.58 10^3/uL (1.8-7.7); Neutrophils % 68.1 %; Nucleated Red Blood Cells % 0 %; Platelet Count 376 10^3/cmm (157-399); Red Blood Count 4.51 10^6/uL (3.85-5.65); Red Cell Distribution Width 12.8 % (12.1-15.1); White Blood Count 12.61 10^3/uL (3.29-11.43)
[2024-04-06 07:57] LABS: Alanine Aminotransferase 28 U/L (0-41); Albumin Level 4.1 g/dL (3.5-5.2); Alkaline Phosphatase 91 U/L (40-130); Aspartate Amino Transferase 20 U/L (0-40); Blood Urea Nitrogen 7 mg/dL (6-20); C Reactive Protein 28.1 mg/L (0.0-4.9); Calcium 9.2 mg/dL (8.5-10.5); Carbon Dioxide 24 mmol/L (22-29); Chloride 109 mmol/L (98-107); Creatinine Clr Calc Pharmacy 217.5964; Globulin 3.5 g/dL (1.3-4.6); Glomerular Filtration Rate 191.5 mL/min (90-130); Glucose 111 mg/dL (65-115); Magnesium 2.2 mg/dL (1.7-2.3); Osmolality Calculated 303 mOsm/kg (285-295); Phosphorus 3.5 mg/dL (2.5-4.5); Sodium 147 mmol/L (136-145); Total Bilirubin 0.4 mg/dL (0.15-1.2); Total Protein 7.6 g/dL (6.6-8.7)
[2024-04-06 08:01] LABS: Anion Gap 18.1 (5-19); Potassium 4.1 mmol/L (3.5-5.1)
[2024-04-06 08:05] LABS: Procalcitonin 0.08 ng/mL (0-0.5)
[2024-04-06] MEDS: baclofen 10 mg Tablet 20 MG PEG-TUBE ×3 (09:14→20:37)
[2024-04-06] MEDS: simethicone 80 mg Chew PEG-TUBE ×3 (09:14→20:37)
[2024-04-06] MEDS: sennosides 8.6 mg Tablet 17.2 MG PEG-TUBE (09:14)
[2024-04-06] MEDS: polyethylene glycol 3350 Pkt 17 gm PEG-TUBE (09:14)
[2024-04-06 10:47] LABS: Vancomycin Random 27.1 ug/mL (20.0-40.0)
[2024-04-06] MEDS: enoxaparin 40 mg/0.4 mL Syringe SUBCUT (17:56)
[2024-04-07] VITALS: BP 94/66; PULSE 61; RESP 17; TEMP 36.8; O2SAT 96
--- NOTE | 2024-04-07 03:51 | PC.NURSE ---
Dose of metoclopramide oral liquid not given due to being unavailable in med-surg pyxis or from any other floor. Pharmacy staff not available at night.
[2024-04-07 04:00] VITALS: BP 121/66; PULSE 68; RESP 16; TEMP 37; O2SAT 92
[2024-04-07 04:38] VITALS: BMI 24.0
[2024-04-07] MEDS: VANCOMYCIN ADD-Vantage 1,000 MG in 0.9% NaCl ADD-Vantage 250 ML 125 MG IV (06:25)
[2024-04-07 08:00] VITALS: BP 104/68; PULSE 72; RESP 15; TEMP 36.8; O2SAT 97
[2024-04-07 08:54] VITALS: PULSE 68; RESP 18; O2SAT 94
[2024-04-07] MEDS: baclofen 10 mg Tablet 20 MG PEG-TUBE (09:17)
[2024-04-07] MEDS: simethicone 80 mg Chew PEG-TUBE (09:17)
--- NOTE | 2024-04-07 11:28 | P.DS_ITS ---
Discharge Providers Date of Admission: 04/02/24 01:07 Date of Discharge: April 07, 2024 Attending Provider at Admission: Frank Berry MD Attending Provider at Discharge: Mulugeta Villatoro MD Primary Care Provider: Abram Tellez Jr, MD Diagnoses at Discharge Discharge Diagnosis (1) Colitis: Status: Acute (2) Ileus: Status: Acute (3) Leukocytosis: Status: Acute (4) Elevated lactic acid level: Status: Acute (5) Malfunction of percutaneous endoscopic gastrostomy (PEG) tube: Status: Acute (6) Sepsis: Status: Acute (7) Staphylococcus epidermidis bacteremia: Status: Acute Reason for Visit Reason for Visit: PEG Tube issues Hospital Course Hospital Course Jefe Blackmon is a 33 year old male with history of oropharyngeal dysphagia, GERD, persistent vegetative state, history of pressure ulcer, extremity contractures, constipation, gets feedings via PEG tube with history of TBI, spastic quadriplegia, nonverbal, bedbound was noted to have PEG tube dislodgment, in the ER CT scan showed colitis, sepsis, significant gastric distention Patient was monitored as inpatient, general surgery was consulted, PEG tube To suction, overall clinically improved, transition to trickle tube feeds, tolerated them well, transition to regular tube feeds, no significant residuals, tolerating well having adequate bowel movements. During his hospitalization there was concern for colitis, was managed with IV antibiotics, completed IV antibiotics as an inpatient During his hospitalization there was concern for staph epidermis bacteremia, patient does not have any artificial hardware, repeat blood cultures have been negative, remains afebrile, highly suspicious that this is a contamination. But given patient's clinical situation, he was discharged on 11 more days of p.o. Zyvox, with a close follow-up with primary care provider as outpatient. Physical Exam Const: COMMON NORMALS: no acute distress OTHER: Patient is nonverbal Resp: COMMON NORMALS: normal respiratory effort, No retractions, No use of accessory muscles and clear to auscultation bilaterally AUSCULTATION: clear to auscultation bilaterally Cardio: COMMON NORMALS: regular rate, regular rhythm, S1 normal heart sound present and S2 normal heart sound present RATE: regular rate RHYTHM: regular rhythm HEART SOUNDS: S1 normal heart sound present and S2 normal heart sound present GI: COMMON NORMALS: Normal to inspection, nondistended, normoactive bowel sounds present and non-tender OTHER: PEG tube is in place Extremity: COMMON NORMALS: no pedal edema Urinary Catheter Management: Ackerman: Cath Placed During This Visit: yes Reason for Continuing Indwelling Catheter: Chronic Indwelling Urinary Catheter on Admission Urinary Catheter Date of Insertion: 04/01/24 Urinary Catheter Time of Insertion: 23:10 Discharge Data Studies Completed and Pending Completed Studies During Hospitalization Category Date Time Status CT abdomen pelvis w con* [id number] Stat Cat Scan 04/01/24 22:11 Completed XR KUB portable [id number] QAM Exams 04/04/24 06:00 Completed XR KUB portable [id number] Routine Exams 04/02/24 07:00 Completed XR KUB portable [id number] Stat Exams 04/03/24 10:54 Completed XR abdomen 1V* [id number] Stat Exams 04/01/24 21:46 Completed Pending at discharge Category Date Time Status Blood Culture Stat Lab 04/02/24 00:37 Results Blood Culture Stat Lab 04/03/24 16:26 Results C.Diff PCR (Lab) Routine Lab 04/02/24 13:32 Ordered Immunochemical Fecal OCB Routine Lab 04/02/24 13:32 Ordered Lactoferrin Routine Lab 04/02/24 13:32 Ordered OVA and Parasites, Conc and PE Routine Lab 04/02/24 13:32 Ordered Salmonella / Shigella / Campy Routine Lab 04/02/24 13:32 Ordered Vancomycin Trough Routine Lab 04/08/24 06:00 Ordered Radiology Impressions Abdomen X-Ray 04/01/24 21:46 IMPRESSION: As above. COMMENTS: For patients with an IVC filter, recommend assessment for a management plan for the patient's IVC filter. If there is no established management plan, recommend referral to an interventional clinician on a nonemergent basis for evaluation. Abdomen/Pelvis CT 04/01/24 22:11 IMPRESSION: 1. Gaseous distension of loops of large bowel. There are areas of right hemicolon wall thickening as well as stricturing versus peristalsis proximal/mid sigmoid. Findings may be related to colitis of an infectious/inflammatory etiology. Stricturing of the proximal/mid sigmoid may be due to peristalsis. The patient can benefit from direct visualization with colonoscopy once clinically per minute. 2. The urinary bladder is underdistended around a Ackerman catheter with wall thickening. Correlate with urinalysis to exclude cystitis. 3. Additional incidental/chronic findings as above. COMMENTS: 1. For patients with an IVC filter, recommend assessment for a management plan for the patient's IVC filter. If there is no established management plan, recommend referral to an interventional clinician on a nonemergent basis for evaluation. 2. Consistent with the [employer]'s Incidental Findings Committee white paper (J Am Neli Radiol 2018): Any incidental renal lesion less than 1 cm or classified as too small to characterize, or any incidental cystic renal lesion characterized as simple-appearing, is likely benign. No follow-up imaging is recommended for these lesions per consensus recommendations based on imaging criteria. KUB X-Ray 04/04/24 06:00 IMPRESSION: Large amount of bowel gas, mainly within the colon, similar to prior study. Evidence of contrast material in portions of colon, descending colon, probably sigmoid colon compared to prior studies. COMMENTS: For patients with an IVC filter, recommend assessment for a management plan for the patient's IVC filter. If there is no established management plan, recommend referral to an interventional clinician on a nonemergent basis for evaluation. Laboratory Results WBC 12.61 10^3/uL (3.29-11.43) H 04/06/24 07:27 RBC 4.51 10^6/uL (3.85-5.65) 04/06/24 07:27 Hgb 14.70 g/dL (11.27-16.99) 04/06/24 07:27 Hct 45.1 % (37-53) 04/06/24 07:27 MCV 100.0 fl (82-101) 04/06/24 07:27 MCH 32.6 pg (27-33) 04/06/24 07:27 MCHC 32.6 g/dL (30-55) 04/06/24 07:27 RDW 12.8 % (12.1-15.1) 04/06/24 07:27 Plt Count 376 10^3/cmm (157-399) 04/06/24 07:27 MPV 11.5 fL (7.4-10.4) H 04/06/24 07:27 Neut % (Auto) 68.1 % 04/06/24 07:27 Lymph % (Auto) 15.1 % 04/06/24 07:27 [place] % (Auto) 13.6 % 04/06/24 07:27 Eos % (Auto) 2.3 % 04/06/24 07:27 Baso % (Auto) 0.7 % 04/06/24 07:27 Neut # (Auto) 8.58 10^3/uL (1.8-7.7) H 04/06/24 07:27 Lymph # (Auto) 1.9 10^3/uL (0.8-4.8) 04/06/24 07:27 [place] # (Auto) 1.7 10^3/uL (0.2-0.9) H 04/06/24 07:27 Eos # (Auto) 0.3 10^3/uL (0.0-0.8) 04/06/24 07:27 Baso # (Auto) 0.1 10^3/uL (0.0-0.1) 04/06/24 07: Nucleated RBC % (auto) 0 % 04/06/24 07: Nucleated RBCs # 0.0 /100WBC 04/06/24 07:27 ESR 15 mm/hr (0-10) H 04/01/24 23:00 Sodium 147 mmol/L (136-145) H 04/06/24 07:27 Potassium 4.1 mmol/L (3.5-5.1) 04/06/24 07:27 Chloride 109 mmol/L (98-107) H 04/06/24 07:27 Carbon Dioxide 24 mmol/L (22-29) 04/06/24 07:27 Anion Gap 18.1 (5-19) 04/06/24 07:27 BUN 7 mg/dL (6-20) 04/06/24 07:27 Creatinine 0.5 mg/dL (0.7-1.2) L 04/06/24 07:27 GFR Calculation 191.5 mL/min (90-130) H 04/06/24 07:27 Glucose 111 mg/dL (65-115) 04/06/24 07: Calculated Osmolality 303 mOsm/kg (285-295) H 04/06/24 07:27 Lactic Acid 2.4 mmol/L (0.5-2.2) H 04/01/24 23:00 Calcium 9.2 mg/dL (8.5-10.5) 04/06/24 07:27 Phosphorus 3.5 mg/dL (2.5-4.5) 04/06/24 07:27 Magnesium 2.2 mg/dL (1.7-2.3) 04/06/24 07:27 Total Bilirubin 0.4 mg/dL (0.15-1.2) 04/06/24 07:27 AST 20 U/L (0-40) 04/06/24 07:27 ALT 28 U/L (0-41) 04/06/24 07:27 Alkaline Phosphatase 91 U/L (40-130) 04/06/24 07:27 C-Reactive Protein 28.1 mg/L (0.0-4.9) H 04/06/24 07:27 Total Protein 7.6 g/dL (6.6-8.7) 04/06/24 07:27 Albumin 4.1 g/dL (3.5-5.2) 04/06/24 07:27 Globulin 3.5 g/dL (1.3-4.6) 04/06/24 07:27 Lipase 37 U/L (13-60) 04/01/24 23:00 Procalcitonin 0.08 ng/mL (0-0.5) 04/06/24 07:27 Urine Color Yellow (Yellow) 04/01/24 23:11 Urine Appearance Clear (CLEAR) 04/01/24 23:11 Urine pH 5.5 (5-7) 04/01/24 23:11 Ur Specific [place] 1.024 (1.005-1.030) 04/01/24 23:11 Urine Protein Negative (Negative) 04/01/24 23:11 Urine Glucose (UA) Negative (Normal) 04/01/24 23:11 Urine Ketones Trace (Negative) 04/01/24 23:11 Urine Blood Negative (Negative) 04/01/24 23:11 Urine Nitrate Negative (Negative) 04/01/24 23:11 Urine Bilirubin Negative (Negative) 04/01/24 23:11 Urine Urobilinogen 1.0 mg/dL (Negative) 04/01/24 23:11 Ur Leukocyte Esterase 1+ (Negative) A 04/01/24 23:11 Urine RBC 3-5 /hpf (0-2) 04/01/24 23:11 Urine WBC 11-20 /hpf (0-5) H 04/01/24 23:11 Ur Squamous Epith Cells 0-5 /hpf (0-5) 04/01/24 23:11 Amorphous Sediment Not Reportable 04/01/24 23:11 Urine Bacteria 1+ /hpf (NONE) H 04/01/24 23:11 Hyaline Casts 2.05 /lpf 04/01/24 23:11 Vancomycin Trough Cancelled 04/06/24 09:52 Random Vancomycin 27.1 ug/mL (20.0-40.0) 04/06/24 07:27 Blood Type O Positive 04/01/24 23:00 Rho(D) Type Rh positive 04/01/24 23:00 Antibody Screen Negative 04/01/24 23:00 Vitals Last Vital Signs Temp 98.2 F 04/07/24 08:00 Pulse 68 04/07/24 08:54 Resp 18 04/07/24 08:54 BP 104/68 04/07/24 08:00 Pulse Ox 94 04/07/24 08:54 O2 Del Method Room Air 04/07/24 08:54 Discharge Plan Discharge Patient Disposition: Xfer SNF Condition: Stable Prescriptions: New linezolid 600 mg tablet 600 mg PO Q12H 11 Days Qty: 22 0RF Continued sennosides [senna] 8.6 mg Tablet 17.2 mg feeding tube DAILY@0800 polyethylene glycol 3350 [Miralax] 17 gram Powder In Packet 17 g feeding tube DAILY@0800 acetaminophen 500 mg Tablet 1,000 mg PO DAILY@0800 magnesium hydroxide [Milk of Magnesia] 400 mg/5 mL Suspension 30 ml feeding tube DAILY PRN (Reason: Constipation) Rx Instructions: 30 mL enteral tube daily prn baclofen 10 mg Tablet 20 mg feeding tube TID@,,20 bisacodyl 10 mg Suppository 10 mg SD DAILY PRN (Reason: Constipation) Enema Disposable 19-7 gram/118 mL Enema 118 ml SD DAILY PRN (Reason: Constipation) simethicone 80 mg Tablet,Chewable 80 mg feeding tube TID@08,14,20 magnesium citrate [Citrate of Magnesia] Solution 300 ml feeding tube DAILY@0800 PRN (Reason: constipation) pantoprazole [Protonix] [address] For Susp In Packet 40 mg PO BID Qty: 0 0RF loratadine 5 mg/5 mL Solution 10 ml PO QAM nystatin 100,000 unit/gram Cream 1 applic TOPICAL BID Rx Instructions: apply to peg tube site topically every 12 hours as needed for redness or irritation Changed metoclopramide HCl 5 mg/5 mL Solution 10 mg feeding tube Q8H PRN (Reason: nausea and vommiting) Qty: 1000 0RF Rx Instructions: TAKE AT 08,16,00, ondansetron HCl 4 mg/5 mL Solution 4 mg PO Q6H PRN (Reason: Nausea And Vomiting) Qty: 100 0RF Rx Instructions: give 5ml via g-tube every 6 hours as needed for nausea and vomiting lactulose 10 gram/15 mL Solution 45 ml feeding tube TID@08,14,20 PRN (Reason: constipation) Qty: 3785 0RF Rx Instructions: hold for loose stools Discharge Orders: Discharge Order (Routine); Ordered 04/07/24 Ordered By: Mulugeta Villatoro Referrals: [facility] [Outside] Abram Tellez Jr, MD [Primary Care Provider] - Discharge Diet: Cardiac Discharge Activity: Resume usual activity Patient Instructions: Linezolid (By mouth), Ileus (GEN), Opioid Safety Activity Restrictions/Additional Instructions: - Please follow-up with primary care provider -Take antibiotics as prescribed -Recheck CBC and CMP in 1 week Discharge Attestations Time Spent in Discharge Care*: greater than 30 min Quality Metrics Clinical Quality Measures [ No reported AMI, CVA or VTE this stay] Coding Level of Care Code 56436 Total time (in minutes) for Discharge: 45 Diagnoses Colitis K52.9 Ileus K56.7 Leukocytosis D72.829 Elevated lactic acid level R79.89 Malfunction of percutaneous endoscopic gastrostomy (PEG) tube K94.23 Sepsis A41.9 Staphylococcus epidermidis bacteremia R78.81; B95.7
--- NOTE | 2024-04-07 11:59 | PC.NURSE ---
Addendum entered by Mariangel Alcazar RN 04/07/24 12:38: This nurse asked Molly about patient's ocampo, she stated he did not have a chronic ocampo catheter. This nurse spoke with Dr. Villatoro who gave orders to remove ocampo Original Note: Report called to Molly at [facility], all questions answered.
[2024-04-07 12:00] VITALS: BP 114/62; PULSE 87; RESP 14; TEMP 37; O2SAT 94
[2024-04-07] MEDS: metoclopramide oral liquid 5 mg/5 mL (ml) 10 MG PEG-TUBE (12:39)
[2024-04-07 14:40] VITALS: BP 114/62; PULSE 87; O2SAT 94
--- NOTE | 2024-04-09 14:48 | P.PN_ITS ---
Subjective 2 Subjective: This is progress note from 04/06/2024, patient was seen this morning, nonverbal, cultures so far show Staph epidermidis, awaiting culture sensitivity, afebrile, normotensive, tolerating tube feeds Vitals/I&O/Wt Last Vital Signs Temp 98.6 F 04/07/24 12:00 Pulse 87 04/07/24 14:40 Resp 14 04/07/24 12:00 BP 114/62 04/07/24 14:40 Pulse Ox 94 04/07/24 14:40 O2 Del Method Room Air 04/07/24 12:00 Physical Exam 2 Const: COMMON NORMALS: no acute distress Resp: COMMON NORMALS: normal respiratory effort, No retractions, No use of accessory muscles and clear to auscultation bilaterally AUSCULTATION: clear to auscultation bilaterally Cardio: COMMON NORMALS: regular rate, regular rhythm, S1 normal heart sound present and S2 normal heart sound present RATE: regular rate RHYTHM: r egular rhythm HEART SOUNDS: S1 normal heart sound present and S2 normal heart sound present GI: COMMON NORMALS: Normal to inspection, nondistended, normoactive bowel sounds present and non-tender Extremity: COMMON NORMALS: no pedal edema Urinary Catheter Management: Ackerman: Cath Placed During This Visit: yes, but has since been removed by the nurse Reason for Continuing Indwelling Catheter: Decision to DC Catheter Urinary Catheter Date of Insertion: 04/01/24 Urinary Catheter Time of Insertion: 23:10 Date Urinary Catheter Removed: 04/07/24 Time Urinary Catheter Discontinued: 12:45 Data 04/06/24 07:27 04/06/24 07:27 Micro: Microbiology 04/03/24 16:20 Blood Culture - Final Blood NO GROWTH AFTER 5 DAYS 04/03/24 16:26 Blood Culture - Final Blood NO GROWTH AFTER 5 DAYS A&P Assessment and plan (1) Colitis: (2) Ileus: (3) Leukocytosis: (4) Elevated lactic acid level: (5) Malfunction of percutaneous endoscopic gastrostomy (PEG) tube: (6) Sepsis: (7) Staphylococcus epidermidis bacteremia: Plan Staphylococcus epidermidis bacteremia -2 out of 3 blood cultures positive -Afebrile -Contamination versus real infection -Does have a Ackerman catheter in place, changed about 3 days ago -Does have a PEG tube in place -No other artificial hardware -Repeat blood cultures so far no growth -Remains afebrile, CRP 47.5, ESR within normal limits, Pro-Jerry within normal limits - continue vancomycin -Follow repeat studies Sepsis related to colitis, Staph epidermidis bacteremia -Discontinue Zosyn Nonverbal related to traumatic brain injury Ileus significant gastric distention CT/CT abdomen pelvis w con* [id number] IMPRESSION: 1. Gaseous distension of loops of large bowel. There are areas of right hemicolon wall thickening as well as stricturing versus peristalsis proximal/mid sigmoid. Findings may be related to colitis of an infectious/inflammatory etiology. Stricturing of the proximal/mid sigmoid may be due to peristalsis. The patient can benefit from direct visualization with colonoscopy once clinically per minute. 2. The urinary bladder is underdistended around a Ackerman catheter with wall thickening. Correlate with urinalysis to exclude cystitis. 3. Additional incidental/chronic findings as above. PEG tube has been attached to low intermittent suction 400 mL of content noted in the container General Surgery consulted No signs of perforated viscus Serial abdominal exam, Advance diet on tube feeds as tolerated, serial abdominal exams Chronic indwelling catheter: Does have pyuria Concerns for UTI, continue Zosyn, urine cultures no growth, stop Zosyn Full code N.p.o. DVT prophylaxis: Lovenox Attestations 2 Medical Necessity Statement*: Patient requires hospitalization for Staphylococcus epidermidis bacteremia, this is progress note from 04/06/2024 Diagnoses Colitis K52.9 Ileus K56.7 Leukocytosis D72.829 Elevated lactic acid level R79.89 Malfunction of percutaneous endoscopic gastrostomy (PEG) tube K94.23 Sepsis A41.9 Staphylococcus epidermidis bacteremia R78.81; B95.7
== END 2024-04-07 14:45 | disposition intermediate care facility (04) | DRG 389 ==
LOC: ER 04-02 00:14 → MEDSURG 04-02 01:08
PROVIDERS: Admitting Provider Internal Medicine; Emergency Provider Nurse Practitioner; PCP Family Medicine; Visit Provider Family Medicine
DX: K56.7 Ileus, unspecified (principal); K59.39 Other megacolon; K94.23 Gastrostomy malfunction; R40.3 Persistent vegetative state; K52.9 Noninfective gastroenteritis and colitis, unspecified; R13.12 Dysphagia, oropharyngeal phase; R82.81 Pyuria; K59.09 Other constipation; Z87.820 Personal history of traumatic brain injury; Z96.0 Presence of urogenital implants
CPT/HCPCS: 36415; 51702; 74018; 74177; 80053; 80202; 81001; 83605; 83690; 83735; 84100; 84145; 85025; 85651; 86140; 86850; 86900; 87040; 87077; 87086; 87150; 87186; 87205; 96365; 96372; 96375; 99223; 99232; 99252; 99285; J1200; J1650; J2405; J2543; J3370; J3372; J7030; J7040; J7042; J7050

== ENCOUNTER 2024-04-18 05:04 | Emergency (ER) | payer MEDICAID, SELFPAY ==
[2024-04-18] VITALS (10 sets, daily range): BP systolic 115–129; BP diastolic 85–105; PULSE 85–115; RESP 17–26; TEMP 37.4; O2SAT 93–96; BMI 22.1
--- NOTE | 2024-04-18 05:15 | PC.NURSE ---
Pt is unable to answer question for the suicide screening due to being non-verbal from a TBI.
--- NOTE | 2024-04-18 05:32 | XRR_ITS ---
PROCEDURE INFORMATION: Exam: XR Chest Exam date and time: 04/18/2024 5:34 AM Age: 33 years old Clinical indication: Patient HX: [facility] with aspiration. ; Additional info: Aspiration, hematemesis TECHNIQUE: Imaging protocol: Radiologic exam of the chest. Views: 1 view. COMPARISON: CR XR chest 1V portable [id number] 10/30/2021 10:47 PM FINDINGS: Lungs: Unremarkable. No consolidation. Pleural spaces: Unremarkable. No pleural effusion. No pneumothorax. Heart/Mediastinum: Unremarkable. No cardiomegaly. Bones/joints: Unremarkable. XR/XR chest 1V portable [id number] IMPRESSION: No acute findings.
--- NOTE | 2024-04-18 05:48 | W.ED.GIBLEED ---
Documented by User: Casey Montoya MD 04/19/24 06:06 HPI - GI Bleed General: Chief complaint: GI Bleed Stated complaint: COFFEE GROUNDS Time Seen by Provider: 04/18/24 05:06 Source: EMS Limitations: altered mental status and other (Chronic nonverbal since TBI 10 years ago) History of Present Illness: 33-year-old male, bedbound previous TBI, nonverbal. Does seem to feel and localize pain. Reportedly had episode of hematemesis and hypoxia at his long-term detention facility. Patient was sent here for evaluation. I had him on 2 to 4 L at the intermediate patient was transitioned off of oxygen during the EMS ride up. Is currently on room air satting 92 to 96%. Blood pressure is stable. Heart rate is slightly tachycardic. There is coffee-ground appearing output from the uncapped PEG tube. complaint: coffee ground emesis Related Data Home Medications Medication Instructions Recorded Confirmed acetaminophen 500 mg tablet 1,000 mg PO DAILY@0800 04/24/19 04/02/24 baclofen 10 mg tablet 20 mg feeding tube TID@04/24/19 04/02/24 bisacodyl 10 mg rectal suppository 10 mg [place] DAILY PRN Constipation 04/24/19 04/02/24 magnesium hydroxide 400 mg/5 mL 30 ml feeding tube DAILY PRN 04/24/19 04/02/24 oral suspension (Milk of Magnesia) Constipation polyethylene glycol 3350 17 gram 17 g feeding tube DAILY@0800 04/24/19 04/02/24 oral powder packet (Miralax) sennosides 8.6 mg tablet (senna) 17.2 mg feeding tube DAILY@0800 04/24/19 04/02/24 sodium phosphates 19 gram-7 118 ml KY DAILY PRN Constipation 04/24/19 04/02/24 gram/118 mL enema (Enema Disposable) magnesium citrate (Citrate of 300 ml feeding tube DAILY@0800 PRN 08/07/20 04/02/24 Magnesia oral) constipation simethicone 80 mg chewable tablet 80 mg feeding tube TID@,,08/07/20 04/02/24 loratadine 5 mg/5 mL oral solution 10 ml PO QAM 04/02/24 04/02/24 nystatin 100,000 unit/gram topical 1 applic topical BID 04/02/24 04/02/24 cream Previous Rx's Medication Instructions Recorded pantoprazole 40 mg granules 40 mg PO BID #0 ea 08/09/20 delayed-release for susp in packet (Protonix) lactulose 10 gram/15 mL oral 45 ml feeding tube TID@08,14,20 04/07/24 solution PRN constipation #3,785 mL metoclopramide HCl 5 mg/5 mL oral 10 mg (10 mL) feeding tube Q8H PRN 04/07/24 solution nausea and vommiting #1,000 mL ondansetron HCl 4 mg/5 mL oral 4 mg (5 mL) PO Q6H PRN Nausea And 04/07/24 solution Vomiting #100 mL Allergies Allergy/AdvReac Type Severity Reaction Status Date / Time No Known Allergies Allergy Verified 03/18/21 01:29 Review of Systems General: Reports: ROS unobtainable due to medical condition and ROS unobtainable due to mental status PFS ED PFSH: Medical History Chronic pain syndrome Constipation Chronic kidney disease Dysphagia Spastic quadriplegia Chronic constipation TBI (traumatic brain injury) Surgical History H/O esophagogastroduodenoscopy (09/12/20) Hx of tracheostomy S/P percutaneous endoscopic gastrostomy (PEG) tube placement Family History Other Family history non-contributory Social History Smoking and tobacco/nicotine status: never used tobacco/nicotine Housing: Long-Term Current occupational status: disabled Physical Exam Const: COMMON NORMALS: no acute distress and alert EXAM LIMITATIONS: other limitations (Chronic health mental status, not able to respond to verbal commands. Does) GENERAL APPEARANCE: well developed and other (Persistent contractures of bilateral arms, left worse than right. Does mov) NUTRITIONAL APPEARANCE: underweight ORIENTATION/CONSCIOUSNESS: Yes awake HENMT: COMMON NORMALS: normocephalic, atraumatic, external ears normal and moist oral mucous membranes HEAD & SCALP: normocephalic and atraumatic EXTERNAL EAR: Yes external ears normal Eye: COMMON NORMALS: Equal, round and reactive pupils present, EOMs intact bilaterally and conjunctivae normal CONJUNCTIVA: Yes conjunctivae normal PUPIL: Yes Equal, round and reactive pupils present Neck/C-Spine: COMMON NORMALS: full ROM, no lymphadenopathy and supple Chest: CHEST: Yes Symmetrical chest wall rise and No Surgical scars present (Chest) Resp: COMMON NORMALS: normal respiratory effort, No retractions, No use of accessory muscles and clear to auscultation bilaterally AUSCULTATION: clear to auscultation bilaterally Cardio: COMMON NORMALS: regular rhythm, S1 normal heart sound present, S2 normal heart sound present, No gallops present (Cardio), No clicks present (Cardio), No murmurs present (Cardio) and No rub (Cardio) RATE: tachycardic RHYTHM: regular rhythm HEART SOUNDS: S1 normal heart sound present, S2 normal heart sound present and no murmurs PERIPHERAL PULSES: other (Radial pulses 2+ and symmetric) GI: COMMON NORMALS: Soft to palpation, non-tender and no masses INSPECTION: No abdominal distension and Yes other (Unkept PEG tube present with output consistent with coffee-ground emesis) PALPATION: Yes Soft to palpation, No Guarding due to palpation present (GI) and No Rebound tenderness present : COMMON NORMALS: Yes no CVA tenderness BLADDER/KIDNEY EXAM: Yes no CVA tenderness Back/Pelvis: COMMON NORMALS: no CVA tenderness Extremity: COMMON NORMALS: capillary refill normal and no clubbing, cyanosis or edema; negative for normal to inspection and negative for full ROM NARRATIVE EXTREMITY EXAM: See exam above. Patient with chronic contractures, able to move right leg but not left. Contracture of the left hand is so severe that his fingernail is cutting into his wrist. There is a clear cut through the dermis with exposed subcu/fascia of the wrist. Neuro: SENSORIUM/ORIENTATION: Yes alert Skin: COMMON NORMALS: turgor normal and no jaundice GENERAL SKIN EXAM: turgor normal Course Vital Signs: Vital signs: Vital Signs Temperature 99.4 F 04/18/24 05:05 Pulse Rate 101 H 04/18/24 09:04 Respiratory Rate 21 H 04/18/24 07:15 Blood Pressure 121/86 04/18/24 09:04 Pulse Oximetry 96 04/18/24 09:04 Oxygen Delivery Me thod Room Air 04/18/24 05:05 MDM - GI Bleed Lab Data 04/18/24 06:00 04/18/24 06:00 Radiology Impressions Chest X-Ray 04/18/24 05:32 IMPRESSION: No acute findings. Laboratory Results WBC 14.54 10^3/uL (3.29-11.43) H 04/18/24 06:00 RBC 4.94 10^6/uL (3.85-5.65) 04/18/24 06:00 Hgb 15.80 g/dL (11.27-16.99) 04/18/24 06:00 Hct 48.9 % (37-53) 04/18/24 06:00 MCV 99.0 fl (82-101) 04/18/24 06:00 MCH 32.0 pg (27-33) 04/18/24 06:00 MCHC 32.3 g/dL (30-55) 04/18/24 06:00 RDW 12.7 % (12.1-15.1) 04/18/24 06:00 Plt Count 521 10^3/cmm (157-399) H 04/18/24 06:00 MPV 11.6 fL (7.4-10.4) H 04/18/24 06:00 Neut % (Auto) 70.4 % 04/18/24 06:00 Lymph % (Auto) 17.3 % 04/18/24 06:00 [place] % (Auto) 10.2 % 04/18/24 06:00 Eos % (Auto) 1.0 % 04/18/24 06:00 Baso % (Auto) 0.7 % 04/18/24 06:00 Neut # (Auto) 10.24 10^3/uL (1.8-7.7) H 04/18/24 06:00 Lymph # (Auto) 2.5 10^3/uL (0.8-4.8) 04/18/24 06:00 [place] # (Auto) 1.5 10^3/uL (0.2-0.9) H 04/18/24 06:00 Eos # (Auto) 0.1 10^3/uL (0.0-0.8) 04/18/24 06:00 Baso # (Auto) 0.1 10^3/uL (0.0-0.1) 04/18/24 06:00 Nucleated RBC % (auto) 0 % 04/18/24 06:00 Nucleated RBCs # 0.0 /100WBC 04/18/24 06:00 PT 12.60 SECONDS (12.1-14.9) 04/18/24 06:00 INR 0.88 (0.8-1.2) 04/18/24 06:00 APTT 39.0 SECONDS (23.9-36.7) H 04/18/24 06:00 Sodium 140 mmol/L (136-145) 04/18/24 06:00 Potassium 4.4 mmol/L (3.5-5.1) 04/18/24 06:00 Chloride 102 mmol/L (98-107) 04/18/24 06:00 Carbon Dioxide 28 mmol/L (22-29) 04/18/24 06:00 Anion Gap 14.4 (5-19) 04/18/24 06:00 BUN 15 mg/dL (6-20) 04/18/24 06:00 Creatinine 0.5 mg/dL (0.7-1.2) L 04/18/24 06:00 GFR Calculation 191.5 mL/min (90-130) H 04/18/24 06:00 Glucose 102 mg/dL (65-115) 04/18/24 06:00 Calculated Osmolality 291 mOsm/kg (285-295) 04/18/24 06:00 Lactic Acid 1.6 mmol/L (0.5-2.2) 04/18/24 06:00 Calcium 9.5 mg/dL (8.5-10.5) 04/18/24 06:00 Total Bilirubin 0.5 mg/dL (0.15-1.2) 04/18/24 06:00 AST 22 U/L (0-40) 04/18/24 06:00 ALT 33 U/L (0-41) 04/18/24 06:00 Alkaline Phosphatase 117 U/L (40-130) 04/18/24 06:00 Total Protein 8.1 g/dL (6.6-8.7) 04/18/24 06:00 Albumin 4.4 g/dL (3.5-5.2) 04/18/24 06:00 Globulin 3.7 g/dL (1.3-4.6) 04/18/24 06:00 Blood Type O Positive 04/18/24 06:00 Rho(D) Type Rh positive 04/18/24 06:00 Antibody Screen Negative 04/18/24 06:00 Discharge Plan Discharge Patient Disposition: Home Clinical Impression: Vomiting Condition: Stable Prescriptions: No Action sennosides [senna] 8.6 mg Tablet 17.2 mg feeding tube DAILY@0800 polyethylene glycol 3350 [Miralax] 17 gram Powder In Packet 17 g feeding tube DAILY@0800 acetaminophen 500 mg Tablet 1,000 mg PO DAILY@0800 magnesium hydroxide [Milk of Magnesia] 400 mg/5 mL Suspension 30 ml feeding tube DAILY PRN (Reason: Constipation) Rx Instructions: 30 mL enteral tube daily prn baclofen 10 mg Tablet 20 mg feeding tube TID@08,14,20 bisacodyl 10 mg Suppository 10 mg KY DAILY PRN (Reason: Constipation) Enema Disposable 19-7 gram/118 mL Enema 118 ml KY DAILY PRN (Reason: Constipation) simethicone 80 mg Tablet,Chewable 80 mg feeding tube TID@08,14,20 magnesium citrate [Citrate of Magnesia] Solution 300 ml feeding tube DAILY@0800 PRN (Reason: constipation) pantoprazole [Protonix] [address] For Susp In Packet 40 mg PO BID Qty: 0 0RF loratadine 5 mg/5 mL Solution 10 ml PO QAM nystatin 100,000 unit/gram Cream 1 applic TOPICAL BID Rx Instructions: apply to peg tube site topically every 12 hours as needed for redness or irritation metoclopramide HCl 5 mg/5 mL Solution 10 mg feeding tube Q8H PRN (Reason: nausea and vommiting) Qty: 1000 0RF Rx Instructions: TAKE AT 08,16,00, ondansetron HCl 4 mg/5 mL Solution 4 mg PO Q6H PRN (Reason: Nausea And Vomiting) Qty: 100 0RF Rx Instructions: give 5ml via g-tube every 6 hours as needed for nausea and vomiting lactulose 10 gram/15 mL Solution 45 ml feeding tube TID@08,14,20 PRN (Reason: constipation) Qty: 3785 0RF Rx Instructions: hold for loose stools Discharge Orders: Discharge ED (Routine); Ordered 04/18/24 Ordered By: Scar Aguirre Referrals: Abram Tellez Jr, MD [Primary Care Provider] - Discharge Diet: Advance as tolerated Discharge Activity: Resume usual activity Patient Instructions: Acute Nausea and Vomiting (ED) Coding Level of Care Code ED Lead Electrical Engineer for Chg Fwd Documented by User: Scar Aguirre MD 04/18/24 09:16 HPI - GI Bleed General: Chief complaint: GI Bleed Stated complaint: COFFEE GROUNDS Time Seen by Provider: 04/18/24 05:06 Related Data Home Medications Medication Instructions Recorded Confirmed acetaminophen 500 mg tablet 1,000 mg PO DAILY@0800 04/24/19 04/02/24 baclofen 10 mg tablet 20 mg feeding tube TID@,,04/24/19 04/02/24 bisacodyl 10 mg rectal suppository 10 mg KY DAILY PRN Constipation 04/24/19 04/02/24 magnesium hydroxide 400 mg/5 mL 30 ml feeding tube DAILY PRN 04/24/19 04/02/24 oral suspension (Milk of Magnesia) Constipation polyethylene glycol 3350 17 gram 17 g feeding tube DAILY@0800 04/24/19 04/02/24 oral powder packet (Miralax) sennosides 8.6 mg tablet (senna) 17.2 mg feeding tube DAILY@0800 04/24/19 04/02/24 sodium phosphates 19 gram-7 118 ml KY DAILY PRN Constipation 04/24/19 04/02/24 gram/118 mL enema (Enema Disposable) magnesium citrate (Citrate of 300 ml feeding tube DAILY@0800 PRN 08/07/20 04/02/24 Magnesia oral) constipation simethicone 80 mg chewable tablet 80 mg feeding tube TID@08,,08/07/20 04/02/24 loratadine 5 mg/5 mL oral solution 10 ml PO QAM 04/02/24 04/02/24 nystatin 100,000 unit/gram topical 1 applic topical BID 04/02/24 04/02/24 cream Previous Rx's Medication Instructions Recorded pantoprazole 40 mg granules 40 mg PO BID #0 ea 08/09/20 delayed-release for susp in packet (Protonix) lactulose 10 gram/15 mL oral 45 ml feeding tube TID@08,14,20 04/07/24 solution PRN constipation #3,785 mL metoclopramide HCl 5 mg/5 mL oral 10 mg (10 mL) feeding tube Q8H PRN 04/07/24 solution nausea and vommiting #1,000 mL ondansetron HCl 4 mg/5 mL oral 4 mg (5 mL) PO Q6H PRN Nausea And 04/07/24 solution Vomiting #100 mL Allergies Allergy/AdvReac Type Severity Reaction Status Date / Time No Known Allergies Allergy Verified 03/18/21 01:29 [facility] [place] ED PFSH: Medical History Chronic pain syndrome Constipation Chronic kidney disease Dysphagia Spastic quadriplegia Chronic constipation TBI (traumatic brain injury) Surgical History H/O esophagogastroduodenoscopy (09/12/20) Hx of tracheostomy S/P percutaneous endoscopic gastrostomy (PEG) tube placement Family History Other Family history non-contributory Social History Smoking and tobacco/nicotine status: never used tobacco/nicotine Housing: Long-Term Current occupational status: disabled Course Vital Signs: Vital signs: Vital Signs Temperature 99.4 F 04/18/24 05:05 Pulse Rate 101 H 04/18/24 09:04 Respiratory Rate 21 H 04/18/24 07:15 Blood Pressure 121/86 04/18/24 09:04 Pulse Oximetry 96 04/18/24 09:04 Oxygen Delivery Me thod Room Air 04/18/24 05:05 MDM - GI Bleed Medical Decision Making Patient presents here with concerns for possible hematemesis his hemoglobin here is normal he has been vitally stable here he stable for discharge back to the intermediate at this time return if worsening. Medical Records I reviewed the patient's medical records. Lab Data I reviewed the patient's lab results. 04/18/24 06:00 04/18/24 06:00 Radiology Impressions Chest X-Ray 04/18/24 05:32 IMPRESSION: No acute findings. Laboratory Results WBC 14.54 10^3/uL (3.29-11.43) H 04/18/24 06:00 RBC 4.94 10^6/uL (3.85-5.65) 04/18/24 06:00 Hgb 15.80 g/dL (11.27-16.99) 04/18/24 06:00 Hct 48.9 % (37-53) 04/18/24 06:00 MCV 99.0 fl (82-101) 04/18/24 06:00 MCH 32.0 pg (27-33) 04/18/24 06:00 MCHC 32.3 g/dL (30-55) 04/18/24 06:00 RDW 12.7 % (12.1-15.1) 04/18/24 06:00 Plt Count 521 10^3/cmm (157-399) H 04/18/24 06:00 MPV 11.6 fL (7.4-10.4) H 04/18/24 06:00 Neut % (Auto) 70.4 % 04/18/24 06:00 Lymph % (Auto) 17.3 % 04/18/24 06:00 [place] % (Auto) 10.2 % 04/18/24 06:00 Eos % (Auto) 1.0 % 04/18/24 06:00 Baso % (Auto) 0.7 % 04/18/24 06:00 Neut # (Auto) 10.24 10^3/uL (1.8-7.7) H 04/18/24 06:00 Lymph # (Auto) 2.5 10^3/uL (0.8-4.8) 04/18/24 06:00 [place] # (Auto) 1.5 10^3/uL (0.2-0.9) H 04/18/24 06:00 Eos # (Auto) 0.1 10^3/uL (0.0-0.8) 04/18/24 06:00 Baso # (Auto) 0.1 10^3/uL (0.0-0.1) 04/18/24 06:00 Nucleated RBC % (auto) 0 % 04/18/24 06:00 Nucleated RBCs # 0.0 /100WBC 04/18/24 06:00 PT 12.60 SECONDS (12.1-14.9) 04/18/24 06:00 INR 0.88 (0.8-1.2) 04/18/24 06:00 APTT 39.0 SECONDS (23.9-36.7) H 04/18/24 06:00 Sodium 140 mmol/L (136-145) 04/18/24 06:00 Potassium 4.4 mmol/L (3.5-5.1) 04/18/24 06:00 Chloride 102 mmol/L (98-107) 04/18/24 06:00 Carbon Dioxide 28 mmol/L (22-29) 04/18/24 06:00 Anion Gap 14.4 (5-19) 04/18/24 06:00 BUN 15 mg/dL (6-20) 04/18/24 06:00 Creatinine 0.5 mg/dL (0.7-1.2) L 04/18/24 06:00 GFR Calculation 191.5 mL/min (90-130) H 04/18/24 06:00 Glucose 102 mg/dL (65-115) 04/18/24 06:00 Calculated Osmolality 291 mOsm/kg (285-295) 04/18/24 06:00 Lactic Acid 1.6 mmol/L (0.5-2.2) 04/18/24 06:00 Calcium 9.5 mg/dL (8.5-10.5) 04/18/24 06:00 Total Bilirubin 0.5 mg/dL (0.15-1.2) 04/18/24 06:00 AST 22 U/L (0-40) 04/18/24 06:00 ALT 33 U/L (0-41) 04/18/24 06:00 Alkaline Phosphatase 117 U/L (40-130) 04/18/24 06:00 Total Protein 8.1 g/dL (6.6-8.7) 04/18/24 06:00 Albumin 4.4 g/dL (3.5-5.2) 04/18/24 06:00 Globulin 3.7 g/dL (1.3-4.6) 04/18/24 06:00 Blood Type O Positive 04/18/24 06:00 Rho(D) Type Rh positive 04/18/24 06:00 Antibody Screen Negative 04/18/24 06:00 All radiology interpretation(s) finalized by discharge Discharge Plan Discharge Patient Disposition: Home Clinical Impression: Vomiting Condition: Stable Prescriptions: No Action sennosides [senna] 8.6 mg Tablet 17.2 mg feeding tube DAILY@0800 polyethylene glycol 3350 [Miralax] 17 gram Powder In Packet 17 g feeding tube DAILY@0800 acetaminophen 500 mg Tablet 1,000 mg PO DAILY@0800 magnesium hydroxide [Milk of Magnesia] 400 mg/5 mL Suspension 30 ml feeding tube DAILY PRN (Reason: Constipation) Rx Instructions: 30 mL enteral tube daily prn baclofen 10 mg Tablet 20 mg feeding tube TID@08,14,20 bisacodyl 10 mg Suppository 10 mg [place] DAILY PRN (Reason: Constipation) Enema Disposable 19-7 gram/118 mL Enema 118 ml [place] DAILY PRN (Reason: Constipation) simethicone 80 mg Tablet,Chewable 80 mg feeding tube TID@08,14,20 magnesium citrate [Citrate of Magnesia] Solution 300 ml feeding tube DAILY@0800 PRN (Reason: constipation) pantoprazole [Protonix] [address] For Susp In Packet 40 mg PO BID Qty: 0 0RF loratadine 5 mg/5 mL Solution 10 ml PO QAM nystatin 100,000 unit/gram Cream 1 applic TOPICAL BID Rx Instructions: apply to peg tube site topically every 12 hours as needed for redness or irritation metoclopramide HCl 5 mg/5 mL Solution 10 mg feeding tube Q8H PRN (Reason: nausea and vommiting) Qty: 1000 0RF Rx Instructions: TAKE AT 08,16,00, ondansetron HCl 4 mg/5 mL Solution 4 mg PO Q6H PRN (Reason: Nausea And Vomiting) Qty: 100 0RF Rx Instructions: give 5ml via g-tube every 6 hours as needed for nausea and vomiting lactulose 10 gram/15 mL Solution 45 ml feeding tube TID@08,14,20 PRN (Reason: constipation) Qty: 3785 0RF Rx Instructions: hold for loose stools Discharge Orders: Discharge ED (Routine); Ordered 04/18/24 Ordered By: Scar Aguirre Referrals: Abram Tellez Jr, MD [Primary Care Provider] - Discharge Diet: Advance as tolerated Discharge Activity: Resume usual activity Patient Instructions: Acute Nausea and Vomiting (ED) Coding Level of Care Code ED Lead Electrical Engineer for [place] Wu
[2024-04-18] MEDS: ondansetron 2 mg/ML SDV 2 mL 4 MG IVP (06:16)
[2024-04-18] MEDS: pantoprazole 40 mg SDV 80 MG IVP (06:18)
[2024-04-18] MEDS: tranexamic acid 1,000 MG/100 ML PREMIX 600 MG IV (06:29)
[2024-04-18] MEDS: sodium chloride 0.9% 1,000 ML 999 ML IV (06:39)
[2024-04-18 06:41] LABS: Basophils # 0.1 10^3/uL (0.0-0.1); Basophils % 0.7 %; Eosinophils # 0.1 10^3/uL (0.0-0.8); Hematocrit 48.9 % (37-53); Lymphocytes # 2.5 10^3/uL (0.8-4.8); Lymphocytes % 17.3 %; Mean Corpuscular HGB Conc 32.3 g/dL (30-55); Mean Platelet Volume 11.6 fL (7.4-10.4); Monocytes # 1.5 10^3/uL (0.2-0.9); Monocytes % 10.2 %; Neutrophils # 10.24 10^3/uL (1.8-7.7); Neutrophils % 70.4 %; Nucleated Red Blood Cells % 0 %; Platelet Count 521 10^3/cmm (157-399); Red Blood Count 4.94 10^6/uL (3.85-5.65); Red Cell Distribution Width 12.7 % (12.1-15.1); White Blood Count 14.54 10^3/uL (3.29-11.43)
[2024-04-18 06:50] LABS: INR 0.88 (0.8-1.2)
[2024-04-18 06:56] LABS: Lactic Sepsis W/Reflex 1.6 mmol/L (0.5-2.2)
[2024-04-18 07:00] LABS: Alanine Aminotransferase 33 U/L (0-41); Albumin Level 4.4 g/dL (3.5-5.2); Alkaline Phosphatase 117 U/L (40-130); Aspartate Amino Transferase 22 U/L (0-40); Blood Urea Nitrogen 15 mg/dL (6-20); Calcium 9.5 mg/dL (8.5-10.5); Carbon Dioxide 28 mmol/L (22-29); Chloride 102 mmol/L (98-107); Globulin 3.7 g/dL (1.3-4.6); Glomerular Filtration Rate 191.5 mL/min (90-130); Glucose 102 mg/dL (65-115); Osmolality Calculated 291 mOsm/kg (285-295); Sodium 140 mmol/L (136-145); Total Bilirubin 0.5 mg/dL (0.15-1.2); Total Protein 8.1 g/dL (6.6-8.7)
[2024-04-18 07:02] LABS: Anion Gap 14.4 (5-19); Creatinine Clr Calc Pharmacy 206.9725; Potassium 4.4 mmol/L (3.5-5.1)
== END 2024-04-18 09:05 | disposition home or self-care (01) ==
PROVIDERS: Emergency Medicine; Emergency Provider Emergency Medicine; PCP Family Medicine
DX: R11.10 Vomiting, unspecified (principal); N18.9 Chronic kidney disease, unspecified
CPT/HCPCS: 71045; 80053; 83605; 85025; 85610; 85730; 86850; 86900; 96374; 96375; 99284; J2405; J2470; J7030